=== PATIENT | female | born 1965 | race Caucasian/White ===

== ENCOUNTER 2019-10-10 08:39 | Outpatient (RCR) | payer MEDICARE, OTHER, SELFPAY | END 2019-10-23 00:01 | LOC: SPT 08:39 | PROVIDERS: Family Provider Electrodiagnostic Medicine; Visit Provider Licensed Practical Nurse | DX: M50.020 Cervical disc disorder with myelopathy, mid-cervical region, unspecified level (principal) | CPT/HCPCS: 97110; 97161; 97140 ==

== ENCOUNTER 2019-10-29 06:00 | Outpatient (RCR) | payer MEDICARE, OTHER, SELFPAY | END 2019-11-23 23:59 | disposition home or self-care (01) | LOC: SPT 06:00 | PROVIDERS: Family Provider Electrodiagnostic Medicine; PCP Electrodiagnostic Medicine; Referring Provider Orthopaedic Surgery; Visit Provider Orthopaedic Surgery | DX: M25.551 Pain in right hip (principal); M25.552 Pain in left hip | CPT/HCPCS: 97110; 97112; 97140; 97161; 97530 ==

== ENCOUNTER → 2019-11-12 09:49 | Outpatient (BNVA) | payer MEDICARE, OTHER, SELFPAY | PROVIDERS: Family Provider Electrodiagnostic Medicine; PCP Electrodiagnostic Medicine; Visit Provider Podiatrist Foot & Ankle Surgery | DX: S92.332A Displaced fracture of third metatarsal bone, left foot, initial encounter for closed fracture (principal); S92.322A Displaced fracture of second metatarsal bone, left foot, initial encounter for closed fracture; X58.XXXA Exposure to other specified factors, initial encounter | CPT/HCPCS: 73630 ==

== ENCOUNTER → 2019-11-14 12:21 | Outpatient (BNVA) | payer MEDICARE, OTHER, SELFPAY | PROVIDERS: Family Provider Electrodiagnostic Medicine; PCP Electrodiagnostic Medicine; Referring Provider Licensed Practical Nurse; Visit Provider Psychiatry & Neurology Neurology | DX: M54.2 Cervicalgia | CPT/HCPCS: 95886; 95908 ==

== ENCOUNTER 2019-11-24 06:00 | Outpatient (RCR) | payer MEDICARE, OTHER, SELFPAY | END 2019-12-22 23:59 | disposition home or self-care (01) | LOC: SPT 06:00 | PROVIDERS: Family Provider Electrodiagnostic Medicine; PCP Electrodiagnostic Medicine; Referring Provider Orthopaedic Surgery; Visit Provider Orthopaedic Surgery | DX: Z01.89 Encounter for other specified special examinations (principal) ==

== ENCOUNTER 2019-12-13 08:31 | Outpatient (CLI) | payer MEDICARE, OTHER, SELFPAY ==
[2019-12-13 08:51] VITALS: BMI 26.2
--- NOTE | 2019-12-13 08:55 | NMCV_ITS ---
NM jakob perf SPECT r/s* [id number] [address] Age: 54 Gender: F : 1965 Exam Date: 12/13/2019 09:39 Ordering Phys: Paul Mike DO Technologist: NINA Rouse Exam Location: [facility] Indications: Chest pain STRESS TEST [facility] for [facility] IMAGE PROTOCOL Rest/Stress 1 Lexiscan Day Radiopharmaceutical Dose (mCi) Administration Site Administered by Rest: Tc-99m 10.6 IV NINA Rouse Sestamibi Stress:Tc-99m 32.9 IV NINA Rouse Sestamibi Rest: 13-Dec-2019 60 Discovery 630 Stress: 13-Dec-2019 45 Discovery 630 0.4mg Lexiscan. Images obtained in supine and prone position. SPECT RESULTS Technical Quality: Good Raw Data Analysis: Breast attenuation Image Corrections: No attenuation or motion correction applied Summed Stress Score: 0 Summed Rest Score: 0 Summed Difference Score: 0 PERFUSION FINDINGS SPECT images demonstrate homogeneous tracer distribution throughout the myocardium. FUNCTIONAL RESULTS (calculated via Gated SPECT) Stress Image LV EF (%): 74 Stress EDV (mL):58 TID: 0.79 Stress ESV (mL):15 FUNCTIONAL FINDINGS: The left ventricle is normal in size. Transient Ischemia Dilatation of 0.79. There is normal left ventricular systolic function. The left ventricular ejection fraction is normal with a value of 74%. There is normal left ventricular wall thickening. IMPRESSIONS 1. Myocardial perfusion imaging is normal. Breast attenuation artifact noted. 2. Overall left ventricular systolic function is normal without regional wall motion abnormalities. 3. The left ventricular ejection fraction is normal with a value of 74%. 4. This study suggests a low likelihood of angiographically significant coronary artery disease. Negar Figueredo MD (Electronically Signed) Final Date: 13 December 2019 14:51 S
--- NOTE | 2019-12-13 08:55 | ECG_ITS ---
NAME OF STUDY: LEXISCAN SESTAMIBI STRESS TEST INDICATION: Chest Pain LEXISCAN STRESS TEST ORDERING PHYSICIAN: Rashid CLINICAL INFORMATION: Chest pain INTERPRETATION: 1. The patient was brought to the laboratory where Lexiscan was infused over 20 seconds. The resting blood pressure was 172/103. Maximum blood pressure was 172/103. The resting heart rate was 86 beats per minute. The maximum heart rate is 101 beats per minute. 2. The baseline electrocardiogram reveals sinus rhythm and is a normal tracing. One premature ventricular contraction. 3. With Lexiscan infusion, there were no ST segment changes to suggest ischemia. 4. The patient experienced no symptoms or arrhythmias during the examination. CONCLUSION: 1. Unremarkable Lexiscan infusion. 2. Nuclear imaging to follow. Electronically Signed On 12-13-2019 11:30:47 RETREADER by Sterling Alejo M.D. [email or web address]
--- NOTE | 2019-12-13 10:43 | SUR.PREOP ---
Patient reports no pain or discomfort prior to the start of the procedure.
[2019-12-13] MEDS: regadenoson 0.4 Mg/5 ml Syringe IVP (10:44)
[2019-12-13 11:09] VITALS: BP 168/95; PULSE 68
== END 2019-12-13 08:32 | disposition home or self-care (01) ==
PROVIDERS: Family Provider Electrodiagnostic Medicine; PCP Electrodiagnostic Medicine; Visit Provider Electrodiagnostic Medicine
DX: R07.9 Chest pain, unspecified (principal)
CPT/HCPCS: 78452; 93017; A9500; J2785

== ENCOUNTER 2020-01-08 20:21 | Emergency (ER) | payer MEDICARE, OTHER, SELFPAY ==
[2020-01-08] VITALS (7 sets, daily range): BP systolic 134–162; BP diastolic 83–102; PULSE 70–86; RESP 13–19; TEMP 36.8; O2SAT 93–97; BMI 21.6
[2020-01-08] MEDS: sodium chloride 0.9% 1,000 ML 999 ML IV (20:39)
--- NOTE | 2020-01-08 20:40 | ED_ITS ---
HPI - Nausea/Vomiting/Diarrhea General: Chief complaint: Nausea/Vomiting/Diarrhea Stated complaint: Vomiting x3 days Time Seen by Provider: 01/08/20 20:33 History of Present Illness: HPI Narrative: 54-year-old female presents emergency room with complaint of nausea and vomiting some diarrhea as well denies hematochezia melena times or coffee-ground emesis started several days ago today has had some chest pain started about 2 hours prior to arrival some shortness of breath chest pain radiated into the jaw. No productive cough MD elicited complaint: nausea, vomiting, diarrhea and abdominal pain Pertinent past history: abdominal surgery Onset (ago): day(s) Associated nausea: Yes Associated abdominal pain: Yes Location of pain: Diffuse Radiation: diffuse Pain consistency: intermittent Severity: moderate Quality: cramping Exacerbating factors: none Relieving factors: none Associated symtoms: Reports nausea; Denies chest pain, dysuria, fatigue or malaise Review of Systems Const: Denies: fever, chills, body aches, change in appetite, fatigue or malaise ENMT: Denies: throat pain, ear pain, nasal discharge or nasal congestion Card: Denies: chest pain, edema, shortness of breath on exertion or shortness of breath when lying down Resp: Denies: shortness of breath, productive cough or non-productive cough GI: Reports: nausea : Denies: flank pain, difficulty urinating, painful urination, urinary frequency or urinary urgency Skin/Breast: Denies: rash or itching PFS ED PFSH: Medical History (Updated 01/09/20 @ 00:06 by Alec Herman DO) Cervical disc disorder with myelopathy of mid-cervical region Surgical History (Updated 12/23/19 @ 11:50 by Daphne Cardenas APRN) History of lumbar spinal fusion (~2017) Dr. Elvin Leija, anterior L5-S1 fusion/fixation. Hx of gastric bypass Hx of hysterectomy Social History Smoking and tobacco status: current every day smoker cigarettes Alcohol intake: never Household members: spouse Marital status: Current occupational status: disabled History of recent travel: No Physical Exam Const: COMMON NORMALS: average body habitus, oriented x3 and alert GENERAL APPEARANCE: cooperative, comfortable, well kempt and well developed NUTRITIONAL APPEARANCE: obese ORIENTATION/CONSCIOUSNESS: Yes awake, Yes oriented to person and Yes oriented to place HENMT: COMMON NORMALS: normocephalic, head/scalp atraumatic, EAC's normal, TM's normal bilaterally, external nose normal, moist oral mucous membranes and oropharynx normal HEAD & SCALP: normocephalic and atraumatic NOSE: external nose normal EXTERNAL AUDITORY CANAL: EAC's normal TYMPANIC MEMBRANE: TM's normal bilaterally MOUTH: oral and palatal mucosa normal, lip normal and tongue normal THROAT: posterior oropharynx normal and tonsils normal Eye: COMMON NORMALS: PERRL, EOMs intact bilaterally, conjunctivae normal and no scleral icterus CONJUNCTIVA: Yes conjunctivae normal PUPIL: Yes PERRL Neck/C-Spine: COMMON NORMALS: full ROM, no lymphadenopathy, supple, no meningeal signs and thyroid normal THYROID: thyroid normal and asymmetrical Lymph: LYMPHATIC: no lymphadenopathy noted Resp: COMMON NORMALS: normal respiratory effort, no retractions, no use of accessory muscles and clear to auscultation bilaterally AUSCULTATION: clear to auscultation bilaterally Cardio: COMMON NORMALS: regular rate and regular rhythm RATE: regular rate RHYTHM: regular rhythm HEART SOUNDS: no murmurs GI: COMMON NORMALS: normal to inspection, nondistended, normoactive bowel sounds, soft to palpation and no hepatosplenomegaly PALPATION: Yes soft, Yes tender (Diffuse) and Yes no hepatosplenomegaly : COMMON NORMALS: Yes no CVA tenderness BLADDER/KIDNEY EXAM: Yes no CVA tenderness Back/Pelvis: COMMON NORMALS: no CVA tenderness LUMBAR SPINE/LOWER BACK: Yes normal to inspection Extremity: COMMON NORMALS: no clubbing, cyanosis or edema, no calf tenderness and no pedal edema Neuro: COMMON NORMALS: oriented x3 SENSORIUM/ORIENTATION: Yes alert, Yes oriented to person and Yes oriented to place MENINGEAL SIGNS: Yes no meningeal signs Psych: APPEARANCE: Yes well kempt Skin: COMMON NORMALS: no rashes or lesions noted and skin turgor normal GENERAL SKIN EXAM: no rashes or lesions noted and turgor normal Course ED course: Patient is feeling better after fluids. She was hypokalemic when she got her with oral potassium supplement she is above 3. Her nausea is improved we will go ahead and discharge her home with Zofran I was unable to get the computer program to write a prescription for potassium supplements for hand wrote a prescription for 20 mEq take 1 p.o. daily for the next 3 to 5 days advised her to follow-up with her primary care doctor within that timeframe to have her potassium rechecked. If it worsening or other problems return to the emergency room. Vital Signs: Vital signs: Vital Signs Temperature 98.4 F 01/09/20 00:17 Pulse Rate 73 01/09/20 00:17 Respiratory Rate 16 01/09/20 00:17 Blood Pressure 158/98 01/09/20 00:17 Pulse Oximetry 96 01/09/20 00:17 MDM - Nausea/Vomiting/Diarrhea Lab Data: Attestation: I reviewed the patient's lab results. Labs: Lab Results 01/08/20 01/08/20 01/08/20 Range/Units 20:00 20:00 22:07 WBC 5.8 (4.0-10.0) 10^3/ uL RBC 4.27 (4.1-5.3) 10^6/u L Hgb 12.5 (11.5-15.3) g/dL Hct 39.1 (37.0-47.0) % MCV 91.6 (81-99) fL MCH 29.3 (28.0-34.0) pg MCHC 32.0 (30.0-36.0) g/dL RDW 13.0 (12.1-15.1) % Plt Count 391 (130-400) 10^3/c mm MPV 10.5 H (7.4-10.4) fL Neut % (Auto) 54.1 % Lymph % (Auto) 34.6 % [place] % (Auto) 9.5 % Eos % (Auto) 1.2 % Baso % (Auto) 0.3 % Neut # (Auto) 3.1 (1.8-7.7) 10^3/u L Lymph # (Auto) 2.0 (0.8-4.8) 10^3/u L [place] # (Auto) 0.6 (0.2-0.9) 10^3/u L Eos # (Auto) 0.1 (0.0-0.8) 10^3/u L Baso # (Auto) 0.0 (0.0-0.1) 10^3/u L Nucleated RBC % (a uto) 0 % Nucleated RBCs # 0.0 /100WBC Sodium 137 139 (136-145) mmol/L Potassium 2.9 L 3.1 L (3.5-5.1) mmol/L Chloride 95 L 101 (98-107) mmol/L Carbon Dioxide 27 25 (22-29) mmol/L Anion Gap 17.9 16.1 (5-19) BUN 21 H 19 (6-20) mg/dL Creatinine 0.9 0.8 (0.5-0.9) mg/dL GFR Calculation 64.8 L 74.2 L (90-130) mL/min Glucose 119 H 107 (65-115) mg/dL Calculated Osmolal ity 282 L 285 (285-295) mOsm/k g Calcium 9.7 8.8 (8.5-10.5) mg/dL Total Bilirubin 0.4 (0.15-1.2) mg/dL AST 32 (0-32) U/L ALT 19 (0-33) U/L Alkaline Phosphata se 78 (35-105) IU/L Total Protein 7.7 (6.6-8.7) g/dL Albumin 4.7 (3.5-5.2) g/dL Globulin 3.0 (1.3-4.6) g/dL Imaging Data^: CT Abd/Pel: Radiologist's impression: [place] [address] CT Scan Report Signed Patient: Sj Land #: [id number] : 1965Acct#:[id number] Age/Sex: 54 / FADM Date: 01/08/20 Loc: ERRoom/Bed: Attending Dr: Ordering Provider/Ordering MD: Alec Herman DO Date of Service: 01/08/20 Procedure(s): CT abdomen pelvis w con* [id number] Accession Number(s): [id number] Report Number: [id number] PROCEDURE INFORMATION: Exam: CT Abdomen And Pelvis With Contrast Exam date and time: 01/08/2020 10:43 PM Age: 54 years old Clinical indication: Nausea and vomiting and other: Diarrhea; Abdominal pain; Generalized; Prior surgery; Surgery type: Back, gastric bypass, gb; Additional info: Abd pain TECHNIQUE: Imaging protocol: Computed tomography of the abdomen and pelvis with intravenous contrast. Total DLP: 1114.15 mGy-cm Radiation optimization: All CT scans at this facility use at least one of these dose optimization techniques: automated exposure control; mA and/or kV adjustment per patient size (includes targeted exams where dose is matched to clinical indication); or iterative reconstruction. Contrast material: OMNI 300; Contrast volume: 95 ml; Contrast route: IV; COMPARISON: CR No relevant prior studies available. FINDINGS: Lungs: The lung bases are clear. Liver: Unremarkable. Gallbladder and bile ducts: No definite gallbladder abnormality by CT. No biliary tree dilation. Pancreas: Unremarkable. Spleen: Unremarkable. Adrenals: Unremarkable. Kidneys and ureters: Unremarkable. Stomach and bowel: Evidence for prior gastric bypass surgery. Some swirling of the mesenteric vessels which may be postsurgical in nature. No significantly dilated bowel to suggest the obstruction or mesenteric volvulus at this time. Clinical correlation and close appropriate clinical follow-up recommended if there is continued concern for bowel obstruction. There are no CT findings to strongly suggest diverticulitis or colitis. Negative CT does not entirely exclude colitis, so follow-up may be helpful, as clinically directed. Appendix: The appendix is visualized and appears normal. Intraperitoneal space: No free air, ascites, or significant bowel distention. Vasculature: No evidence for abdominal aortic aneurysm. Lymph nodes: No retroperitoneal adenopathy. Bladder: Unremarkable as visualized. Reproductive: Prior hysterectomy. No definite ovarian/adnexal cyst or mass by CT. Bones/joints: Postsurgical changes of fusion at L5-S1. Soft tissues: No significant acute finding. CT/CT abdomen pelvis w con* [id number] IMPRESSION: 1. No free air or significant bowel distention. 2. Normal appendix. 3. Prior gastric bypass surgery. Some swirling of the mesenteric vessels which may be postsurgical in nature. No significantly dilated bowel to suggest the obstruction or mesenteric volvulus at this time. See above discussion. 4. Other findings discussed above. Radiation Dose CTDIVOL = (mGy): DLP = 1114.15 (mGy-cm) Dictated By:Elias Finley MD Discharge Plan Discharge Patient Disposition: Home, Self-Care Clinical Impression: Gastroenteritis, Hypokalemia Condition: Stable Prescriptions: New Zofran 4 mg tablet 4 mg PO Q6H PRN (Reason: nausea and vomiting) Qty: 20 RF: 0 No Action alendronate 70 mg tablet 70 mg PO ONCE RF: 0 citalopram [Celexa] 40 mg tablet 40 mg PO QDAY RF: 0 pregabalin [Lyrica] 150 mg capsule 150 mg PO BID RF: 0 tramadol 50 mg tablet 50 mg PO Q6H PRNRF: 0 tizanidine 2 mg capsule 2 mg PO TID PRNRF: 0 oxycodone-acetaminophen [Percocet] 5-325 mg tablet 1 tab PO QID PRNRF: 0 lidocaine [Lidoderm] 5 % adhesive patch,medicated 1 patch TOPICAL QDAY RF: 0 lisinopril 10 mg tablet 10 mg PO QDAY RF: 0 metoprolol succinate 50 mg tablet extended release 24 hr 50 mg PO BID RF: 0 sertraline 100 mg tablet 100 mg PO DAILY RF: 0 Discharge Orders: Discharge Order (Routine); Ordered 01/09/20 Ordered By: Alec Herman Referrals: Paul Mike DO [Primary Care Provider] - Discharge Diet: Advance as tolerated and Clear Liquid Discharge Activity: Increase activity as tolerated Activity Restrictions/Additional Instructions: Up with your primary care doctor in 2 to 3 days. Handwritten prescription was given for potassium 20 mEq take 1 daily until you follow-up with your primary care doctor Discharge Date/Time: 01/09/20 00:19 Coding Level of Care Code ED Psychological Operations for Fazal Fwd Exam Comprehensive
[2020-01-08] MEDS: ondansetron 2 mg/ML SDV 2 mL 4 MG IVP (20:51)
[2020-01-08 20:53] LABS: Basophils % 0.3 %; Eosinophils # 0.1 10^3/uL (0.0-0.8); Eosinophils % 1.2 %; Hematocrit 39.1 % (37.0-47.0); Hemoglobin 12.5 g/dL (11.5-15.3); Lymphocytes % 34.6 %; Mean Corpuscular Hemoglobin 29.3 pg (28.0-34.0); Mean Corpuscular Volume 91.6 fL (81-99); Mean Platelet Volume 10.5 fL (7.4-10.4); Monocytes # 0.6 10^3/uL (0.2-0.9); Monocytes % 9.5 %; Neutrophils # 3.1 10^3/uL (1.8-7.7); Neutrophils % 54.1 %; Nucleated Red Blood Cells % 0 %; Platelet Count 391 10^3/cmm (130-400); Red Blood Count 4.27 10^6/uL (4.1-5.3); White Blood Count 5.8 10^3/uL (4.0-10.0)
[2020-01-08 21:04] LABS: Alanine Aminotransferase 19 U/L (0-33); Albumin Level 4.7 g/dL (3.5-5.2); Alkaline Phosphatase 78 IU/L (35-105); Anion Gap 17.9 (5-19); Aspartate Amino Transferase 32 U/L (0-32); Blood Urea Nitrogen 21 mg/dL (6-20); Calcium 9.7 mg/dL (8.5-10.5); Carbon Dioxide 27 mmol/L (22-29); Chloride 95 mmol/L (98-107); Glomerular Filtration Rate 64.8 mL/min (90-130); Glucose 119 mg/dL (65-115); Osmolality Calculated 282 mOsm/kg (285-295); Sodium 137 mmol/L (136-145); Total Bilirubin 0.4 mg/dL (0.15-1.2); Total Protein 7.7 g/dL (6.6-8.7)
[2020-01-08 21:12] LABS: Potassium 2.9 mmol/L (3.5-5.1)
--- NOTE | 2020-01-08 21:57 | CTR_ITS ---
PROCEDURE INFORMATION: Exam: CT Abdomen And Pelvis With Contrast Exam date and time: 01/08/2020 10:43 PM Age: 54 years old Clinical indication: Nausea and vomiting and other: Diarrhea; Abdominal pain; Generalized; Prior surgery; Surgery type: Back, gastric bypass, gb; Additional info: Abd pain TECHNIQUE: Imaging protocol: Computed tomography of the abdomen and pelvis with intravenous contrast. Total DLP: 1114.15 mGy-cm Radiation optimization: All CT scans at this facility use at least one of these dose optimization techniques: automated exposure control; mA and/or kV adjustment per patient size (includes targeted exams where dose is matched to clinical indication); or iterative reconstruction. Contrast material: OMNI 300; Contrast volume: 95 ml; Contrast route: IV; COMPARISON: CR No relevant prior studies available. FINDINGS: Lungs: The lung bases are clear. Liver: Unremarkable. Gallbladder and bile ducts: No definite gallbladder abnormality by CT. No biliary tree dilation. Pancreas: Unremarkable. Spleen: Unremarkable. Adrenals: Unremarkable. Kidneys and ureters: Unremarkable. Stomach and bowel: Evidence for prior gastric bypass surgery. Some swirling of the mesenteric vessels which may be postsurgical in nature. No significantly dilated bowel to suggest the obstruction or mesenteric volvulus at this time. Clinical correlation and close appropriate clinical follow-up recommended if there is continued concern for bowel obstruction. There are no CT findings to strongly suggest diverticulitis or colitis. Negative CT does not entirely exclude colitis, so follow-up may be helpful, as clinically directed. Appendix: The appendix is visualized and appears normal. Intraperitoneal space: No free air, ascites, or significant bowel distention. Vasculature: No evidence for abdominal aortic aneurysm. Lymph nodes: No retroperitoneal adenopathy. Bladder: Unremarkable as visualized. Reproductive: Prior hysterectomy. No definite ovarian/adnexal cyst or mass by CT. Bones/joints: Postsurgical changes of fusion at L5-S1. Soft tissues: No significant acute finding. CT/CT abdomen pelvis w con* [id number] IMPRESSION: 1. No free air or significant bowel distention. 2. Normal appendix. 3. Prior gastric bypass surgery. Some swirling of the mesenteric vessels which may be postsurgical in nature. No significantly dilated bowel to suggest the obstruction or mesenteric volvulus at this time. See above discussion. 4. Other findings discussed above. Radiation Dose CTDIVOL = (mGy): DLP = 1114.15 (mGy-cm)
[2020-01-08] MEDS: sodium chlor 0.9% + KCl 20 mEq 20 MEQ/1,000 ML BAG 125 MEQ IV (22:19)
[2020-01-08 22:27] LABS: Anion Gap 16.1 (5-19); Blood Urea Nitrogen 19 mg/dL (6-20); Calcium 8.8 mg/dL (8.5-10.5); Carbon Dioxide 25 mmol/L (22-29); Chloride 101 mmol/L (98-107); Glomerular Filtration Rate 74.2 mL/min (90-130); Glucose 107 mg/dL (65-115); Osmolality Calculated 285 mOsm/kg (285-295); Potassium 3.1 mmol/L (3.5-5.1); Sodium 139 mmol/L (136-145)
[2020-01-08] MEDS: iohexol 300 mg/mL 100 mL Btl IV (22:53)
[2020-01-08] MEDS: acetaminophen 325 mg Tablet 650 MG PO (23:43)
[2020-01-09 00:17] VITALS: BP 158/98; PULSE 73; RESP 16; TEMP 36.9; O2SAT 96
== END 2020-01-09 00:19 | disposition home or self-care (01) ==
PROVIDERS: Emergency Provider Family Medicine; Family Provider Electrodiagnostic Medicine; PCP Electrodiagnostic Medicine
DX: K52.9 Noninfective gastroenteritis and colitis, unspecified (principal); E87.6 Hypokalemia; F17.210 Nicotine dependence, cigarettes, uncomplicated
CPT/HCPCS: 12345; 36415; 74177; 80048; 80053; 85025; 96365; 96366; 96375; 99283; 99284; J2405; J7030; Q9967

== ENCOUNTER 2020-01-17 15:27 | Emergency (ER) | payer MEDICARE, OTHER, SELFPAY ==
[2020-01-17] VITALS (8 sets, daily range): BP systolic 147–176; BP diastolic 99–122; PULSE 88–100; RESP 16–18; TEMP 36.4; O2SAT 94–98; BMI 31.6
--- NOTE | 2020-01-17 15:39 | ED_ITS ---
Entered by Randi Butler, acting as scribe for Alec Herman DO HPI - Headache General: Chief Complaint: Headache Stated Complaint: h/a Time Seen by Provider: 01/17/20 15:38 Source: patient Mode of arrival: ambulatory Limitations: no limitations History of Present Illness: HPI Narrative: 54 yo female presents with a headache. pt states this started today. pt states the lights and noise makes this worse and nothing makes it better.pt has had abdomen tenderness. pt denies any other symptoms at this time. MD elicited complaint: headache Onset (ago): day(s) Onset description: gradually Severity: mild Quality & Timing: throbbing Exacerbating factors: light Context: occurred at rest Associated symptoms: Reports other (abdomen tenderness) Treatments prior to arrival: none Review of Systems General: Reports: 10 or more systems reviewed and unremarkable except in HPI and below Eyes: Reports: photophobia Skin/Breast: Reports: sensitivity to light Neuro: Reports: headache PFSH ED PFSH: Medical History (Updated 01/17/20 @ 17:26 by Alec Herman DO) Cervical disc disorder with myelopathy of mid-cervical region Surgical History (Updated 12/23/19 @ 11:50 by Daphne Cardenas APRN) History of lumbar spinal fusion (~2016) Dr. Elvin Leija, anterior L5-S1 fusion/fixation. Hx of gastric bypass Hx of hysterectomy Social History Smoking and tobacco status: current every day smoker cigarettes Alcohol intake: never Household members: spouse Marital status: Current occupational status: disabled History of recent travel: No Physical Exam Const: COMMON NORMALS: no apparent distress GENERAL APPEARANCE: cooperative and comfortable ORIENTATION/CONSCIOUSNESS: Yes awake, Yes oriented to person, Yes oriented to place and Yes oriented to time HENMT: COMMON NORMALS: normocephalic, head/scalp atraumatic, hearing grossly normal bilaterally, external ears normal, EAC's normal, TM's normal bilaterally, nasal mucous membranes and turbinates normal, moist oral mucous membranes and oropharynx normal HEAD & SCALP: normocephalic and atraumatic NOSE: nasal mucous membranes and turbinates normal EXTERNAL EAR: Yes external ears normal EXTERNAL AUDITORY CANAL: EAC's normal TYMPANIC MEMBRANE: TM's normal bilaterally Neck/C-Spine: COMMON NORMALS: full ROM, no lymphadenopathy, supple and no JVD Lymph: LYMPHATIC: no lymphadenopathy noted and no lymphedema noted Resp: COMMON NORMALS: normal respiratory effort, no retractions, no use of accessory muscles and clear to auscultation bilaterally AUSCULTATION: clear to auscultation bilaterally Cardio: COMMON NORMALS: no JVD, regular rate, regular rhythm and no murmurs RATE: regular rate RHYTHM: regular rhythm GI: COMMON NORMALS: soft to palpation and no hepatosplenomegaly AUSC ULTATION: Yes normoactive bowel sounds PALPATION: Yes soft, No guarding and Y es no hepatosplenomegaly Extremity: COMMON NORMALS: normal to inspection, normal capillary refill, no clubbing, cyanosis or edema, no calf tenderness and no pedal edema Neuro: SENSORIUM/ORIENTATION: Yes oriented to person, Yes oriented to place and Yes oriented to time Skin: COMMON NORMALS: no rashes or lesions noted GENERAL SKIN EXAM: no rashes or lesions noted Course Vital Signs: Vital signs: Vital Signs Temperature 97.6 F 01/17/20 15:40 Pulse Rate 88 01/17/20 17:35 Respiratory Rate 16 01/17/20 17:35 Blood Pressure 156/115 01/17/20 17:35 Pulse Oximetry 96 01/17/20 17:35 MDM - Headache MDM Narrative: Medical decision making narrative: Patient improved after medications will discharge to home recommend follow-up with Dr. Mike as planned for imaging of the neck. Lab Data: Labs: Lab Results 01/17/20 01/17/20 Range/Units 15:57 15:57 WBC 5.1 (4.0-10.0) 10^3/ uL RBC 4.06 L (4.1-5.3) 10^6/u L Hgb 11.8 (11.5-15.3) g/dL Hct 38.9 (37.0-47.0) % MCV 95.8 (81-99) fL MCH 29.1 (28.0-34.0) pg MCHC 30.3 (30.0-36.0) g/dL RDW 13.0 (12.1-15.1) % Plt Count 319 (130-400) 10^3/c mm MPV 10.1 (7.4-10.4) fL Neut % (Auto) 56.0 % Lymph % (Auto) 32.2 % [place] % (Auto) 7.1 % Eos % (Auto) 3.9 % Baso % (Auto) 0.6 % Neut # (Auto) 2.9 (1.8-7.7) 10^3/u L Lymph # (Auto) 1.6 (0.8-4.8) 10^3/u L [place] # (Auto) 0.4 (0.2-0.9) 10^3/u L Eos # (Auto) 0.2 (0.0-0.8) 10^3/u L Baso # (Auto) 0.0 (0.0-0.1) 10^3/u L Nucleated RBC % (a uto) 0 % Nucleated RBCs # 0.0 /100WBC Sodium 144 (136-145) mmol/L Potassium 3.6 (3.5-5.1) mmol/L Chloride 104 (98-107) mmol/L Carbon Dioxide 25 (22-29) mmol/L Anion Gap 18.6 (5-19) BUN 4 L (6-20) mg/dL Creatinine 0.9 (0.5-0.9) mg/dL GFR Calculation 64.8 L (90-130) mL/min Glucose 145 H (65-115) mg/dL Calculated Osmolal ity 296 H (285-295) mOsm/k g Calcium 9.4 (8.5-10.5) mg/dL Total Bilirubin 0.2 (0.15-1.2) mg/dL AST 23 (0-32) U/L ALT 14 (0-33) U/L Alkaline Phosphata se 74 (35-105) IU/L Total Protein 6.7 (6.6-8.7) g/dL Albumin 4.5 (3.5-5.2) g/dL Globulin 2.2 (1.3-4.6) g/dL Discharge Plan Discharge Patient Disposition: Home, Self-Care Clinical Impression: Migraine, Cervical disc disorder with myelopathy of mid-cervical region Condition: Stable Prescriptions: No Action alendronate 70 mg tablet See Rx Instructions .ROUTE .COMPLEX RF: 0 pregabalin [Lyrica] 150 mg capsule 150 mg PO BID RF: 0 tramadol 50 mg tablet 50 mg PO Q6H PRN (Reason: PAIN) RF: 0 tizanidine 2 mg capsule 2 mg PO TID PRN (Reason: Muscle Pain) RF: 0 oxycodone-acetaminophen [Percocet] 5-325 mg tablet 1 tab PO QID PRN (Reason: Pain) RF: 0 lidocaine [Lidoderm] 5 % adhesive patch,medicated 1 patch TOPICAL QDAY RF: 0 lisinopril 10 mg tablet 10 mg PO DAILY RF: 0 metoprolol succinate 50 mg tablet extended release 24 hr 50 mg PO BID RF: 0 sertraline 100 mg tablet 100 mg PO DAILY RF: 0 ondansetron HCl [Zofran] 4 mg tablet 4 mg PO Q6H PRN (Reason: nausea and vomiting) Qty: 20 RF: 0 Klonopin 0.5 mg Tablet 0.5 mg PO DAILY RF: 0 promethazine 25 mg Tablet 25 mg PO Q6H PRN (Reason: Nausea) RF: 0 mlsuroqvcn-nzlhcauybenii-ifqr 50-300-40 mg Capsule 1 cap PO Q4H PRN (Reason: Headache) RF: 0 potassium chloride 20 mEq Tablet Extended Release 20 meq PO DAILY RF: 0 Referrals: Paul Mike DO [Primary Care Provider] - Activity Restrictions/Additional Instructions: Follow-up with Dr. Mike and the scheduled test he has been planned for you. Discharge Date/Time: 01/17/20 18:00 Coding Level of Care Code ED Legal Activity Adjudicator for Chg Fwd Exam Comprehensive The documentation recorded by the Luke delaney Bridget Annette, accurately reflects the service I personally performed and the decisions made by Batsheva connell Curtis L, DO Jan 17, 2020 15:27
--- NOTE | 2020-01-17 15:46 | CT_ITS ---
WS: [id number] CT HEAD NONCONTRAST HISTORY: headache TECHNIQUE: Contiguous axial imaging performed through the brain in 2.5 mm imaging. Bone and soft tiss ue windows. Sagittal and coronal reformats reviewed. All CT scans at [facility] use at ast one of these dose optimization techniques: automated exposure control; mA and/or kV adjustment pe r patient size (includes targeted exams where dose is matched to clinical indication); or iterative r econstruction. DLP: 754.28 mGy.cm COMPARISON: 10/05/2013 No acute intracranial hemorrhage, midline shift or mass effect. No atrophy or prior infarcts or herniation. No prior infarcts. Ventricles: Normal size with no hydrocephalus. Paranasal sinuses: As visualized are clear. Mastoid air cells: Well pneumatized. Calvarium and scalp: Skull is intact with no soft tissue edema or swelling. CT/CT head wo con* [id number] IMPRESSION: Negative head CT.
[2020-01-17 16:11] LABS: Basophils % 0.6 %; Eosinophils # 0.2 10^3/uL (0.0-0.8); Eosinophils % 3.9 %; Hematocrit 38.9 % (37.0-47.0); Hemoglobin 11.8 g/dL (11.5-15.3); Lymphocytes # 1.6 10^3/uL (0.8-4.8); Lymphocytes % 32.2 %; Mean Corpuscular HGB Conc 30.3 g/dL (30.0-36.0); Mean Corpuscular Hemoglobin 29.1 pg (28.0-34.0); Mean Corpuscular Volume 95.8 fL (81-99); Mean Platelet Volume 10.1 fL (7.4-10.4); Monocytes # 0.4 10^3/uL (0.2-0.9); Monocytes % 7.1 %; Neutrophils # 2.9 10^3/uL (1.8-7.7); Nucleated Red Blood Cells % 0 %; Platelet Count 319 10^3/cmm (130-400); Red Blood Count 4.06 10^6/uL (4.1-5.3); White Blood Count 5.1 10^3/uL (4.0-10.0)
[2020-01-17] MEDS: morphine 4 mg/mL SDV 1 mL IVP (16:21)
[2020-01-17] MEDS: ondansetron 2 mg/ML SDV 2 mL 4 MG IVP (16:21)
[2020-01-17 16:32] LABS: Alanine Aminotransferase 14 U/L (0-33); Albumin Level 4.5 g/dL (3.5-5.2); Alkaline Phosphatase 74 IU/L (35-105); Anion Gap 18.6 (5-19); Aspartate Amino Transferase 23 U/L (0-32); Blood Urea Nitrogen 4 mg/dL (6-20); Calcium 9.4 mg/dL (8.5-10.5); Carbon Dioxide 25 mmol/L (22-29); Chloride 104 mmol/L (98-107); Globulin 2.2 g/dL (1.3-4.6); Glomerular Filtration Rate 64.8 mL/min (90-130); Glucose 145 mg/dL (65-115); Osmolality Calculated 296 mOsm/kg (285-295); Potassium 3.6 mmol/L (3.5-5.1); Sodium 144 mmol/L (136-145); Total Bilirubin 0.2 mg/dL (0.15-1.2); Total Protein 6.7 g/dL (6.6-8.7)
[2020-01-17] MEDS: morphine 4 mg/mL SDV 1 mL 2 MG IVP (17:13)
== END 2020-01-17 18:00 | disposition home or self-care (01) ==
PROVIDERS: Emergency Provider Family Medicine; Family Provider Electrodiagnostic Medicine; PCP Electrodiagnostic Medicine
DX: G43.909 Migraine, unspecified, not intractable, without status migrainosus (principal); M50.020 Cervical disc disorder with myelopathy, mid-cervical region, unspecified level; F17.210 Nicotine dependence, cigarettes, uncomplicated
CPT/HCPCS: 12345; 36415; 70450; 80053; 85025; 96374; 96375; 96376; 99282; 99283; J2270; J2405

== ENCOUNTER 2020-01-22 10:45 | Emergency (ER) | payer MEDICARE, OTHER, SELFPAY ==
[2020-01-22] VITALS (9 sets, daily range): BP systolic 129–189; BP diastolic 75–145; PULSE 75–102; RESP 16–17; TEMP 36.8; O2SAT 96–100; BMI 27.8
--- NOTE | 2020-01-22 10:53 | XR_ITS ---
WS: [id number] PORTABLE CHEST HISTORY: chest pain COMPARISON: 11/07/2017, lung bases 01/08/2020 Subsegmental atelectasis at the LEFT lung base. No pulmonary nodule or mass. No pleural effusion or p neumothorax. Cardiac size: Normal. Mediastinum/Aorta: Mildly enlarged pulmonary arteries. No abnormality was noted at the hilar regions on the prior CT of 01/08/2020. No osseous abnormality seen. XR/XR chest 1V portable [id number] IMPRESSION: Subsegmental atelectasis LEFT lung base.
--- NOTE | 2020-01-22 10:53 | ECG_ITS ---
Measurements Intervals [place]ms Rate: 76 P: 50 MD: 127 QRS: 64 QRSD: 80 T: 66 QT: 359 QTc: 406 SINUS RHYTHM INTERPRETATION BASED ON A DEFAULT AGE OF 40 YEARS No previous ECG available for comparison Electronically Signed On 01-22-2020 19:24:03 CDT by Adryan Diallo M.D. [id number] f
--- NOTE | 2020-01-22 10:58 | W.ED.CHESTPA ---
HPI - Chest Pain General: Chief Complaint: Chest Pain Stated Complaint: CP Time Seen by Provider: 01/22/20 10:47 History of Present Illness: HPI narrative: Patient has chest pain that began last night. She describes the pain as sharp and stabbing. She has had no or minimal associated symptoms. MD complaint: chest pain and chest heaviness Onset (ago): day(s) (1) Timing of current episode: constant Prior episodes: No Onset: during rest Pain location: parasternal Pain radiation: none Quality: sharp Relieving factors: nothing Exacerbating factors: inspiration Review of Systems General: Reports: 10 or more systems reviewed and unremarkable except in HPI and below Card: Reports: chest pain PFS ED PFSH: Medical History Cervical disc disorder with myelopathy of mid-cervical region Surgical History History of lumbar spinal fusion (~2016) Dr. Elvin Leija, anterior L5-S1 fusion/fixation. Hx of gastric bypass Hx of hysterectomy Family History Father Cancer Family history of myocardial infarction Mother Lung disease Dementia Social History Smoking and tobacco status: current every day smoker cigarettes Alcohol intake: never Household members: spouse Marital status: Current occupational status: disabled History of recent travel: No Physical Exam HENMT: COMMON NORMALS: normocephalic HEAD & SCALP: normocephalic Neck/C-Spine: COMMON NORMALS: full ROM, no lymphadenopathy, no meningeal signs and no JVD GENERAL: No JVD Resp: COMMON NORMALS: normal respiratory effort, no retractions, no use of accessory muscles and clear to auscultation bilaterally AUSCULTATION: clear to auscultation bilaterally Cardio: COMMON NORMALS: no JVD, regular rate, regular rhythm and no murmurs RATE: regular rate RHYTHM: regular rhythm GI: COMMON NORMALS: normal to inspection, nondistended, normoactive bowel sounds Extremity: COMMON NORMALS: normal to inspection, full ROM, normal capillary refill and no pedal edema Neuro: MENINGEAL SIGNS: Yes no meningeal signs Skin: COMMON NORMALS: no rashes or lesions noted and skin turgor normal GENERAL SKIN EXAM: no rashes or lesions noted and turgor normal Course Vital Signs: Vital signs: Vital Signs Temperature 98.3 F 01/22/20 10:57 Pulse Rate 76 01/22/20 10:57 Respiratory Rate 16 01/22/20 13:26 Blood Pressure 189/145 01/22/20 10:57 Pulse Oximetry 100 01/22/20 10:57 MDM - Chest Pain Lab Data: Labs: Lab Results 01/22/20 01/22/20 01/22/20 Range/Units 11:02 11:02 11:02 WBC 3.5 L (4.0-10.0) 10^3/ uL RBC 4.25 (4.1-5.3) 10^6/u L Hgb 12.5 (11.5-15.3) g/dL Hct 40.6 (37.0-47.0) % MCV 95.5 (81-99) fL MCH 29.4 (28.0-34.0) pg MCHC 30.8 (30.0-36.0) g/dL RDW 13.2 (12.1-15.1) % Plt Count 309 (130-400) 10^3/c mm MPV 10.3 (7.4-10.4) fL Neut % (Auto) 54.0 % Lymph % (Auto) 32.9 % [place] % (Auto) 8.4 % Eos % (Auto) 3.8 % Baso % (Auto) 0.9 % Neut # (Auto) 1.9 (1.8-7.7) 10^3/u L Lymph # (Auto) 1.1 (0.8-4.8) 10^3/u L [place] # (Auto) 0.3 (0.2-0.9) 10^3/u L Eos # (Auto) 0.1 (0.0-0.8) 10^3/u L Baso # (Auto) 0.0 (0.0-0.1) 10^3/u L Nucleated RBC % (a uto) 0 % Nucleated RBCs # 0.0 /100WBC Sodium 145 (136-145) mmol/L Potassium 4.2 (3.5-5.1) mmol/L Chloride 104 (98-107) mmol/L Carbon Dioxide 26 (22-29) mmol/L Anion Gap 19.2 H (5-19) BUN 6 (6-20) mg/dL Creatinine 0.8 (0.5-0.9) mg/dL GFR Calculation 74.2 L (90-130) mL/min Glucose 108 (65-115) mg/dL Calculated Osmolal ity 296 H (285-295) mOsm/k g Calcium 9.9 (8.5-10.5) mg/dL Total Bilirubin 0.2 (0.15-1.2) mg/dL AST 29 (0-32) U/L ALT 16 (0-33) U/L Alkaline Phosphata se 81 (35-105) IU/L Troponin T Baselin e 10 (0-10) ng/mL Troponin T 120 Min romina (0-10) ng/mL Delta Troponin T (0-10) ABS# NT-Pro-B Natriuret Pep 48 (0-125) pg/mL Total Protein 7.8 (6.6-8.7) g/dL Albumin 4.6 (3.5-5.2) g/dL Globulin 3.2 (1.3-4.6) g/dL 01/22/20 Range/Units 13:02 WBC (4.0-10.0) 10^3/ uL RBC (4.1-5.3) 10^6/u L Hgb (11.5-15.3) g/dL Hct (37.0-47.0) % MCV (81-99) fL MCH (28.0-34.0) pg MCHC (30.0-36.0) g/dL RDW (12.1-15.1) % Plt Count (130-400) 10^3/c mm MPV (7.4-10.4) fL Neut % (Auto) % Lymph % (Auto) % [place] % (Auto) % Eos % (Auto) % Baso % (Auto) % Neut # (Auto) (1.8-7.7) 10^3/u L Lymph # (Auto) (0.8-4.8) 10^3/u L [place] # (Auto) (0.2-0.9) 10^3/u L Eos # (Auto) (0.0-0.8) 10^3/u L Baso # (Auto) (0.0-0.1) 10^3/u L Nucleated RBC % (a uto) % Nucleated RBCs # /100WBC Sodium (136-145) mmol/L Potassium (3.5-5.1) mmol/L Chloride (98-107) mmol/L Carbon Dioxide (22-29) mmol/L Anion Gap (5-19) BUN (6-20) mg/dL Creatinine (0.5-0.9) mg/dL GFR Calculation (90-130) mL/min Glucose (65-115) mg/dL Calculated Osmolal ity (285-295) mOsm/k g Calcium (8.5-10.5) mg/dL Total Bilirubin (0.15-1.2) mg/dL AST (0-32) U/L ALT (0-33) U/L Alkaline Phosphata se (35-105) IU/L Troponin T Baselin e (0-10) ng/mL Troponin T 120 Min romina 10.24 H (0-10) ng/mL Delta Troponin T 0.24 (0-10) ABS# NT-Pro-B Natriuret Pep (0-125) pg/mL Total Protein (6.6-8.7) g/dL Albumin (3.5-5.2) g/dL Globulin (1.3-4.6) g/dL Discharge Plan Discharge Prescriptions: No Action alendronate 70 mg tablet See Rx Instructions .ROUTE .COMPLEX RF: 0 pregabalin [Lyrica] 150 mg capsule 150 mg PO BID RF: 0 tramadol 50 mg tablet 50 - 100 mg PO TID PRN (Reason: PAIN) RF: 0 tizanidine 2 mg capsule 2 - 4 mg PO TID PRN (Reason: Muscle Pain) RF: 0 lidocaine [Lidoderm] 5 % adhesive patch,medicated See Rx Instructions .ROUTE .COMPLEX RF: 0 sertraline 100 mg tablet 100 mg PO DAILY RF: 0 Multiple Vitamins Tablet 1 tab PO DAILY RF: 0 albuterol sulfate 2.5 mg /3 mL (0.083 %) Solution For Nebulization 2.5 mg INHALATION Q4H PRN (Reason: Shortness Of Breath) RF: 0 Mobic 7.5 mg Tablet 7.5 mg PO DAILY RF: 0 metoprolol tartrate 50 mg Tablet 50 mg PO BID RF: 0 oxycodone-acetaminophen 7.5-325 mg Tablet 1 tab PO QID PRN (Reason: Pain) RF: 0 Ventolin HFA 90 mcg/actuation Hfa Aerosol Inhaler 2 puff INHALATION Q4H PRN (Reason: Shortness Of Breath) RF: 0 clonazepam [Klonopin] 0.5 mg Tablet 0.5 mg PO DAILY RF: 0 promethazine 25 mg Tablet 25 mg PO Q6H PRN (Reason: Nausea) RF: 0 bztcrizebn-occvztaubvrkd-iozi 50-300-40 mg Capsule 1 - 2 cap PO Q4H PRN (Reason: Headache) RF: 0 potassium chloride 20 mEq Tablet Extended Release 20 meq PO DAILY RF: 0 Coding Level of Care Code ED 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
[2020-01-22 11:11] LABS: Basophils % 0.9 %; Eosinophils # 0.1 10^3/uL (0.0-0.8); Eosinophils % 3.8 %; Hematocrit 40.6 % (37.0-47.0); Hemoglobin 12.5 g/dL (11.5-15.3); Lymphocytes # 1.1 10^3/uL (0.8-4.8); Lymphocytes % 32.9 %; Mean Corpuscular HGB Conc 30.8 g/dL (30.0-36.0); Mean Corpuscular Hemoglobin 29.4 pg (28.0-34.0); Mean Corpuscular Volume 95.5 fL (81-99); Mean Platelet Volume 10.3 fL (7.4-10.4); Monocytes # 0.3 10^3/uL (0.2-0.9); Monocytes % 8.4 %; Neutrophils # 1.9 10^3/uL (1.8-7.7); Nucleated Red Blood Cells % 0 %; Platelet Count 309 10^3/cmm (130-400); Red Blood Count 4.25 10^6/uL (4.1-5.3); Red Cell Distribution Width 13.2 % (12.1-15.1); White Blood Count 3.5 10^3/uL (4.0-10.0)
[2020-01-22 11:31] LABS: Troponin(5th) Baseline 10 ng/mL (0-10)
[2020-01-22 11:42] LABS: Alanine Aminotransferase 16 U/L (0-33); Albumin Level 4.6 g/dL (3.5-5.2); Alkaline Phosphatase 81 IU/L (35-105); Anion Gap 19.2 (5-19); Aspartate Amino Transferase 29 U/L (0-32); Blood Urea Nitrogen 6 mg/dL (6-20); Calcium 9.9 mg/dL (8.5-10.5); Carbon Dioxide 26 mmol/L (22-29); Chloride 104 mmol/L (98-107); Globulin 3.2 g/dL (1.3-4.6); Glomerular Filtration Rate 74.2 mL/min (90-130); Glucose 108 mg/dL (65-115); NT Pro B Type Natriuretic Pept 48 pg/mL (0-125); Osmolality Calculated 296 mOsm/kg (285-295); Potassium 4.2 mmol/L (3.5-5.1); Sodium 145 mmol/L (136-145); Total Bilirubin 0.2 mg/dL (0.15-1.2); Total Protein 7.8 g/dL (6.6-8.7)
[2020-01-22] MEDS: hyDRALAzine 20 mg/mL INJ 1 mL IVP (12:26)
--- NOTE | 2020-01-22 12:53 | ECG_ITS ---
Measurements Intervals [place] Rate: 101 P: 67 MO: 127 QRS: 58 QRSD: 87 T: 68 QT: 334 QTc: 435 SINUS TACHYCARDIA ABNORMAL RHYTHM ECG No previous ECG available for comparison Electronically Signed On 01-22-2020 19:24:46 CDT by Adryan Diallo M.D. [email or web address] f
--- NOTE | 2020-01-22 13:12 | PC.NURSE ---
ekg performed and shown to ED physician.
[2020-01-22] MEDS: ondansetron 2 mg/ML SDV 2 mL 4 MG IVP (13:25)
[2020-01-22] MEDS: morphine 4 mg/mL SDV 1 mL IVP (13:26)
[2020-01-22 13:27] LABS: Troponin 5 2HR 10.24 ng/mL (0-10); Troponin 5 2HR Delta 0.24 ABS# (0-10)
[2020-01-22] MEDS: labetalol 5 mg/mL SDV 20mL 40 MG IVP (14:16)
== END 2020-01-22 15:16 | disposition home or self-care (01) ==
PROVIDERS: Emergency Provider Family Medicine; Family Provider Electrodiagnostic Medicine; PCP Electrodiagnostic Medicine
DX: I20.8 Other forms of angina pectoris (principal); I16.9 Hypertensive crisis, unspecified; F17.210 Nicotine dependence, cigarettes, uncomplicated; Z98.84 Bariatric surgery status
CPT/HCPCS: 12345; 36415; 71045; 80053; 83880; 84484; 85025; 93005; 96374; 96375; 99282; 99284; J0360; J2270; J2405; J3490

== ENCOUNTER 2020-01-23 08:38 | Outpatient (CLI) | payer MEDICARE, OTHER, SELFPAY ==
--- NOTE | 2020-01-23 08:46 | MR_ITS ---
WS: [id number] MRI LUMBAR SPINE NONCONTRAST TECHNIQUE: Sagittal T1, T2 and STIR imaging. Axial T1 and T2 imaging. CLINICAL INFORMATION: LUMBAR BACK PAIN W/RADICULOPATHY COMPARISON: MRI May 20, 2018 FINDINGS: Mild lumbar curve. No acute compression. Mild disc bulging L3-L4 and L4-L5. Postoperative changes ant erior interbody fusion L5-S1. Tarlov cysts in the sacrum. L1-L2: Normal. L2-L3: Tiny right subarticular protrusion narrows the right subarticular recess with contact of the t raversing L3 nerve root. Right foramen is patent. Mild facet arthropathy. This is new from 2018. L3-L4: Mild annular bulging with slight narrowing of the subarticular recess bilaterally. Mild facet arthropathy. Mild left and no significant right foraminal narrowing. L4-L5: Mild annular bulging with a shallow central disc protrusion. Narrowing of the subarticular rec ess bilaterally with mild central canal stenosis. Mild to moderate right and no significant left fora rose narrowing. Mild facet arthropathy. L5-S1: Postoperative changes anterior interbody fusion L5-S1. Spinal canal and foramen are patent. Mi ld/moderate facet arthropathy. Tarlov cysts in the sacrum. Visualized pelvic bony structures: Normal. Paravertebral soft tissues: Normal. MR/MR lumbar spine wo con* [id number] IMPRESSION: 1. Mild lumbar curve. No acute compression. Stable anterior interbody fusion L 5-S1. 2. New small right subarticular protrusion L2-3 with impingement on the mariya sing right L3 nerve root. Recommend correlation for L3 nerve root symptoms. 3. Mild central canal stenosis L4-5 due to annular bulging with a small centra l protrusion. Narrowing of the subarticular recess bilaterally. Mild to moderat e right L4-5 foraminal narrowing. 4. Mild left L3-4 foraminal narrowing.
== END 2020-01-23 08:39 | disposition home or self-care (01) ==
PROVIDERS: Family Provider Electrodiagnostic Medicine; PCP Electrodiagnostic Medicine; Visit Provider Electrodiagnostic Medicine
DX: M54.16 Radiculopathy, lumbar region (principal); M51.26 Other intervertebral disc displacement, lumbar region; M48.061 Spinal stenosis, lumbar region without neurogenic claudication
CPT/HCPCS: 72148

== ENCOUNTER 2020-01-29 07:58 | Outpatient (CLI) | payer MEDICARE, OTHER, SELFPAY ==
--- NOTE | 2020-01-29 | MR_ITS ---
WS: [id number] MRI HEAD WITHOUT CONTRAST TECHNIQUE: Sagittal T1, T2 axial, T2 axial FLAIR, axial and coronal T1 images, axial susceptibility w eighted imaging, axial diffusion weighted images, and coronal T2 images were obtained. CLINICAL INFORMATION: HEADACHE COMPARISON: None. FINDINGS: No evidence of restricted diffusion to suggest acute ischemia. Ventricular system and basal cisterns are patent. Mild small vessel changes with mild parenchymal volume loss. Normal posterior fossa. Norm al vascular flow voids at the skull base. No extra-axial fluid collections. Mild mucosal thickening in the ethmoid air cells. Mastoid air cells are well aerated. No hemosiderin on the susceptibly weighted images. Normal optic chiasm and pituitary infundibulum.Mild symmetric atr ophy involving the temporal lobes and temporal formations. MR/MR head wo con* [id number] IMPRESSION: 1. No evidence of restricted diffusion to suggest acute ischemia. 2. Mild small vessel changes with mild parenchymal volume loss. 3. No hemosiderin on susceptibly weighted images. 4. Mild symmetric atrophy involving the temporal lobes hippocampal formations. 5. No other significant findings.
--- NOTE | 2020-01-29 | MR_ITS ---
WS: [id number] MRI CERVICAL SPINE NONCONTRAST TECHNIQUE: Sagittal T1, T2 and STIR imaging. Axial T2, gradient, and fiesta imaging. CLINICAL INFORMATION: NECK PAIN COMPARISON: None. FINDINGS: Straightening of the normal cervical lordosis. Cord signal is normal. No high-grade central canal christiano nosis. Mild disc bulging C5-C6 and C6-C7. C2-C3: Normal. C3-C4: No significant disc bulging. Mild facet arthropathy. Spinal canal and foramen are patent. C4-C5: Mild disc bulging and osteophytic ridging. Mild left and no significant right foraminal narrow ing. Mild facet arthropathy. Spinal canal is patent. C5-C6: Mild disc bulging with osteophytic ridging. Disc osteophyte protrusion with moderate facet art hropathy. Mild left and no significant right foraminal narrowing. C6-C7: Disc osteophyte complex with a tiny central disc protrusion. Mild left greater than right fora rose narrowing. Moderate facet arthropathy. C7-T1: Disc osteophyte complex with endplate ridging. Mild left greater than right bony foraminal herrera rowing. Spinal canal is patent. Small disc protrusions in the upper thoracic spine T3-T4 and T4-T5. T4-5 disc protrusion slightly con tacts the thoracic cord A few small T2 hyperintense thyroid nodules. MR/MR cervical spin wo con* [id number] IMPRESSION: 1. Straightening of the normal cervical lordosis. 2. Cord signal is normal. No significant central canal stenosis. 3. Small central disc osteophyte protrusions C5-C6, C6-7, slightly contacts th e cervical cord without significant central canal stenosis. 4. Mild bony foraminal narrowing mainly due to osteophytic ridging and facet a rthropathy more prominent at left C4-C5, and left C6-C7. 5. Small disc protrusions in the upper thoracic spine at T3-T4 and T4-T5 with slight contact of the thoracic cord at T4-T5. 6. A few small thyroid nodules. This can be followed up with ultrasound.
== END 2020-01-29 07:59 | disposition home or self-care (01) ==
LOC: RADSHAW 07:58
PROVIDERS: Family Provider Electrodiagnostic Medicine; PCP Electrodiagnostic Medicine; Visit Provider Electrodiagnostic Medicine
DX: M48.02 Spinal stenosis, cervical region (principal); M47.892 Other spondylosis, cervical region; E04.2 Nontoxic multinodular goiter; M54.2 Cervicalgia; R51 Headache
CPT/HCPCS: 70551; 72141

== ENCOUNTER 2020-03-07 09:22 | Outpatient (CLI) | payer MEDICARE, OTHER, SELFPAY ==
--- NOTE | 2020-03-07 10:00 | IR_ITS ---
WS: [id number] MYELOGRAM CERVICAL SPINE Fluoroscopic guided cervical myelogram CLINICAL INFORMATION: cervical pain COMPARISON: None. TECHNIQUE: The procedure, including risks, benefits, and complications, were discussed with the patie nt who agreed to proceed. A timeout was performed to confirm correct patient, procedure, and site. Using sterile technique, the patient was prepped and draped in the usual sterile fashion. After admin istration of local anesthesia using 1% preservative-free lidocaine and using fluoroscopic guidance, a 22-gauge spinal needle was advanced into the subarachnoid space at the L3-L4 level. Subsequently 13 cc of Omnipaque 300 was administered into the thecal sac. The needle was removed and hemostasis was a chieved. Subsequently the table was tilted down and contrast flowed freely into the cervical spine. S pot fluoroscopic images were obtained. FLUOROSCOPIC TIME: 1.1 minutes. Spot fluoroscopic images demonstrate free flow of contrast into the cervical spine. Mild spinal lytic changes cervical spine. Normal C1-articulation. Disc space heights vertebral body heights are relati vely well-preserved in the cervical spine. Straightening of the normal cervical lordosis in the neutr al view. Slight anterolisthesis C4 on C5 measuring 1 to 2 mm. This increases slightly on flexion to 2 .2 mm. This returns to near neutral on extension. Moderate facet arthropathy mid cervical spine. Please see CT myelogram report for additional detail. IR/IR myelogram sp cervical [id number] IMPRESSION: 1. Uncomplicated cervical myelogram. 2. Mild flexion-extension instability C4-5 described above. 3. Please see CT myelogram report for additional anatomic detail.
[2020-03-07] MEDS: iohexol 300 mg/mL 50 mL Btl INTRATHECA (10:48)
--- NOTE | 2020-03-07 11:30 | CT_ITS ---
WS: [id number] CT CERVICAL MYELOGRAM TECHNIQUE: CT of the cervical spine coronal and sagittal reformatted images post intrathecal administ ration of contrast. CLINICAL INFORMATION: cervical pain COMPARISON: MRI January 29, 2020 DLP: 1421.[address] scans at [facility] use at least one of these dose optimization techniques: automat ed exposure control; mA and/or kV adjustment per patient size (includes targeted exams where dose is matched to clinical indication); or iterative reconstruction. FINDINGS: Straightening of the normal cervical lordosis. Slight anterolisthesis C4 on C5. This measures approxi mately 1.5 mm. Normal C1-2 articulation. No high-grade central canal stenosis. C2-C3: No significant disc bulging. Spinal canal and foramen are patent. C3-C4: Mild osteophytic ridging. Mild left and no significant right foraminal narrowing. Spinal canal is patent. Mild facet arthropathy. C4-C5: Slight anterolisthesis C4 on C5. Mild left and no significant right foraminal narrowing. Spina l canal is patent. Mild facet arthropathy. C5-C6: Mild disc osteophyte complex. No significant central canal stenosis. Mild facet arthropathy. S tracy canal and foramen are patent. C6-C7: Mild disc osteophyte complex with endplate ridging. Mild bilateral bony foraminal narrowing. M ild to moderate facet arthropathy. Central canal is patent. Tiny central disc osteophyte protrusion s lightly contacts the cervical cord. C7-T1: Mild disc osteophytic ridging. Mild left greater than right bony foraminal narrowing. Spinal c anal is patent. Mastoid air cells are well aerated. Multinodular thyroid. This could be followed up with ultrasound. Largest thyroid nodules in the right measuring 1.4CCM. Visualized posterior fossa structures: Normal. CT/CT cervical spine w con [id number] IMPRESSION: 1. Straightening of the normal cervical lordosis with slight anterolisthesis C 4 on C5. 2. No high-grade central canal narrowing. 3. Small disc osteophyte protrusions at C5-C6 and C6-C7 with slight contact of the cervical cord worse at C6-C7. No significant central canal stenosis. 4. Multilevel mild bony foraminal narrowing worse at left greater than right C 6-C7 and bilateral C7-T1. 5. Multinodular thyroid with the largest nodules measuring up to 1.5 cm in the right thyroid gland. This can be followed up with ultrasound.
== END 2020-03-07 09:23 | disposition home or self-care (01) ==
PROVIDERS: Family Provider Electrodiagnostic Medicine; PCP Electrodiagnostic Medicine; Visit Provider Specialist
DX: M25.78 Osteophyte, vertebrae (principal); M48.02 Spinal stenosis, cervical region; E04.2 Nontoxic multinodular goiter; M53.2X2 Spinal instabilities, cervical region
CPT/HCPCS: 62302; 72040; 72126; J2001

== ENCOUNTER 2020-04-25 08:51 | Outpatient (CLI) | payer MEDICARE, OTHER, SELFPAY ==
--- NOTE | 2020-04-25 08:57 | US_ITS ---
WS: [id number] ULTRASOUND THYROID TECHNIQUE: Ultrasound of the thyroid. CLINICAL INFORMATION: THYROID NODULE COMPARISON: None. FINDINGS: Thyroid: Right lobe larger than left. Multiple bilateral heterogeneous thyroid nodules. Largest nodul e right lower lobe measuring 1.7 x 1.2 x 1.7 cm Right thyroid lobe: 4.9 cm x 1.7 cm x 2.0 cm Left thyroid lobe: 4.4 cm x 1.1 cm x 1.7 cm. Isthmus: 0.3 mm. Cervical lymphadenopathy: None. US/US thyroid [id number] IMPRESSION: 1. Heterogeneous right thyroid nodule measuring 1.7 x 1.2 x 1.7 cm. This can b e further evaluated with FNA. 2. Largest nodule in the left thyroid measuring 1.3 x 0.7 CM. Recommend 12 mon th follow-up.
== END 2020-04-25 08:52 | disposition home or self-care (01) ==
LOC: RAD 08:55
PROVIDERS: Family Provider Electrodiagnostic Medicine; PCP Electrodiagnostic Medicine; Visit Provider Electrodiagnostic Medicine
DX: E04.2 Nontoxic multinodular goiter (principal)
CPT/HCPCS: 76536

== ENCOUNTER → 2020-04-28 15:00 | Outpatient (BNVA) | payer MEDICARE, OTHER, SELFPAY | PROVIDERS: Family Provider Electrodiagnostic Medicine; PCP Electrodiagnostic Medicine; Visit Provider Nurse Practitioner | DX: R50.9 Fever, unspecified (principal) | CPT/HCPCS: 87635 ==

== ENCOUNTER 2020-05-12 12:26 | Outpatient (CLI) | payer MEDICARE, OTHER, SELFPAY ==
--- NOTE | 2020-05-12 12:00 | XRR_ITS ---
PROCEDURE INFORMATION: Exam: XR Left Foot Complete Exam date and time: 05/12/2020 12:43 PM Age: 54 years old Clinical indication: Injury or trauma; Fall; Initial encounter; Blunt trauma; Foot; Left; Injury date: ? Patient HX: PT fell; Additional info: Metatarsal fracture TECHNIQUE: Imaging protocol: XR Left foot. Views: 3 or more views. COMPARISON: CR XR foot LT min 3V* [id number] 11/12/2019 9:54 AM FINDINGS: Bones/joints: Unremarkable Soft tissues: Normal. Other findings: Comparison to prior examination similar findings is seen XR/XR foot LT min 3V* [id number] IMPRESSION: No acute findings.
== END 2020-05-12 12:27 | disposition home or self-care (01) ==
PROVIDERS: Family Provider Electrodiagnostic Medicine; PCP Electrodiagnostic Medicine; Visit Provider Podiatrist Foot & Ankle Surgery
DX: S99.922A Unspecified injury of left foot, initial encounter (principal); X58.XXXA Exposure to other specified factors, initial encounter
CPT/HCPCS: 73630

== ENCOUNTER 2020-05-28 14:45 | Outpatient (CLI) | payer MEDICARE, OTHER, SELFPAY ==
--- NOTE | 2020-05-28 14:51 | XRR_ITS ---
PROCEDURE INFORMATION: Exam: XR Chest, 2 Views Exam date and time: 05/28/2020 3:21 PM Age: 54 years old Clinical indication: Condition or disease; Lung condition and disease; Pneumonia; Other: Not specified TECHNIQUE: Imaging protocol: XR of the chest Views: 2 views. COMPARISON: CR XR chest 1V portable [id number] 01/22/2020 11:23 AM FINDINGS: Lungs: Unremarkable. No consolidation. Pleural space: Unremarkable. No pleural effusion. No pneumothorax. Heart/Mediastinum: Unremarkable. No cardiomegaly. Bones/joints: Unremarkable. XR/XR chest 2V* [id number] IMPRESSION: No acute findings.
== END 2020-05-28 14:46 | disposition home or self-care (01) ==
LOC: RAD 14:48
PROVIDERS: PCP Electrodiagnostic Medicine; Visit Provider Nurse Practitioner Family
DX: J18.9 Pneumonia, unspecified organism (principal)
CPT/HCPCS: 71046

== ENCOUNTER 2020-06-27 15:00 | Outpatient (CLI) | payer MEDICARE, OTHER, SELFPAY ==
--- NOTE | 2020-06-27 15:05 | XR_ITS ---
WS: [id number] Lateral views of cervical spine in the flexion, extension and neutral positions. 06/27/2020 Clinical Data: SPINAL STENOSIS Comparison: None. Findings: The disc heights are normal. There is no prevertebral soft tissue swelling. No compression fractures are noted. On flexion and extension there is no limitation of motion or subluxation. The patient is e dentulous. XR/XR cervical spine fl/ex [id number] Impression: Negative lateral view of the cervical spine with no limitation of motion or sub luxation on flexion or extension.
--- NOTE | 2020-06-27 15:41 | MRR_ITS ---
PROCEDURE INFORMATION: Exam: MR Cervical Spine Without Contrast Exam date and time: 06/27/2020 3:41 PM Age: 54 years old Clinical indication: Condition or disease; Other: Spinal stenosis; Additional info: Spinal stenosis, cervical region TECHNIQUE: Imaging protocol: Multiplanar magnetic resonance images of the cervical spine without contrast. COMPARISON: MR cervical spin wo con* [id number] 01/29/2020 8:38 AM FINDINGS: Vertebrae: Vertebrae are intact and normally aligned. There is normal marrow signal without evidence of fracture or replacement lesion. Spinal cord: Cervical cord has a normal diameter in appearance on all sequences. C2-C3: No significant disc disease. No significant spinal stenosis. C3-C4: No significant disc disease. No significant spinal stenosis. C4-C5: Mild posterior osteophyte without significant stenosis or impingement. C5-C6: There is mild posterior bulging of the disc with effacement of the anterior epidural space not changed from 01/29/2020 C6-C7: There is mild posterior protrusion of the disc, slightly more prominent than on the previous examination with effacement of the anterior epidural space but without significant cord flattening, more prominent towards the left and to the right. There is no foraminal stenosis. C7-T1: No significant disc disease. No significant spinal stenosis. Vertebral arteries: Expected flow voids in the vertebral arteries. Soft tissues: Unremarkable. MR/MR cervical spin wo con* [id number] IMPRESSION: Mild degenerative disc changes in the lower cervical spine as described with some mild protrusion at C6-C7 which has progressed slightly compared with 01/29/2020.
== END 2020-06-27 15:01 | disposition home or self-care (01) ==
LOC: RAD 15:03
PROVIDERS: PCP Electrodiagnostic Medicine; Visit Provider Anesthesiology Pain Medicine
DX: M48.02 Spinal stenosis, cervical region (principal)
CPT/HCPCS: 72040; 72141

== ENCOUNTER → 2020-07-01 11:24 | Outpatient (BNVA) | payer MEDICARE, OTHER, SELFPAY | PROVIDERS: PCP Electrodiagnostic Medicine; Visit Provider Nurse Practitioner Family | DX: Z11.59 Encounter for screening for other viral diseases (principal) | CPT/HCPCS: 87635 ==

== ENCOUNTER 2020-08-05 07:58 | Outpatient (CLI) | payer MEDICARE, OTHER, SELFPAY ==
--- NOTE | 2020-08-05 08:00 | CT_ITS ---
WS: [id number] CT ABDOMEN PELVIS TECHNIQUE: Contrast-enhanced CT of the abdomen and pelvis with coronal and sagittal reformatted image s. CLINICAL INFORMATION: DIARRHEA, ABD PAIN, ANEMIA, GASTRITIS COMPARISON: CT January 08, 2020 DLP: 1139.[address] scans at [facility] use at least one of these dose optimization techniques: automat ed exposure control; mA and/or kV adjustment per patient size (includes targeted exams where dose is matched to clinical indication); or iterative reconstruction. FINDINGS: Mild diffuse infiltration liver. Portal vein and splenic vein are patent. Fatty sparing near the falc iform ligament. Subsegmental atelectasis right lower lobe. Normal GE junction. Adrenal glands are nor mal. Normal renal parenchymal enhancement. No hydronephrosis. Normal spleen. Normal pancreas. Prior p ostoperative changes gastric bypass surgery. Rectosigmoid distention with mild constipation. Again seen is swirling in the central mesentery simil ar to the prior examination. No evidence of high-grade obstruction. Findings likely postoperative in etiology. Diffuse transmural colonic thickening involving the cecum and ascending colon extending into the brenner sverse colon to the splenic flexure. Findings suspicious for infectious or inflammatory colitis. Desc ending colon appears normal. No pneumatosis. No free air. Prior postoperative changes anterior interb malik fusion L5-S1. Tiny fat-containing umbilical hernia. Prior hysterectomy. CT/CT abdomen pelvis w con* [id number] IMPRESSION: 1. Prior postoperative changes gastric bypass surgery. 2. Diffuse transmural thickening involving the cecum and ascending colon exten ding into the transverse colon to the splenic flexure. Findings compatible with colitis which may be infectious or inflammatory in etiology. Less likely ische kiley. No free air or pneumatosis. Recommend correlation for infectious symptoms. 3. Again seen is prominent swirling in the central mesentery which is likely p ostsurgical and unchanged. No bowel obstruction. 4. Diffuse fatty infiltration of the liver with cholecystectomy. 5. Rectosigmoid constipation.
[2020-08-05] MEDS: iohexol 300 mg/mL 50 mL Btl PO (08:46)
[2020-08-05] MEDS: iohexol 300 mg/mL 100 mL Btl IV (10:36)
== END 2020-08-05 07:59 | disposition home or self-care (01) ==
PROVIDERS: PCP Electrodiagnostic Medicine; Visit Provider Electrodiagnostic Medicine
DX: R19.7 Diarrhea, unspecified (principal); R10.9 Unspecified abdominal pain; D64.9 Anemia, unspecified; K29.70 Gastritis, unspecified, without bleeding; Z98.84 Bariatric surgery status; K59.09 Other constipation; K76.0 Fatty (change of) liver, not elsewhere classified
CPT/HCPCS: 74177; Q9967

== ENCOUNTER 2020-08-06 23:00 | Inpatient (IN) | payer MEDICARE, OTHER, SELFPAY ==
[2020-08-06 23:12] VITALS: BP 82/58; PULSE 71; RESP 17; TEMP 36.4; O2SAT 95; BMI 26.6
--- NOTE | 2020-08-06 23:19 | W.ED.ABDPA2 ---
HPI - Abdominal Pain General: Chief Complaint: Abdominal Pain Stated Complaint: ABD PAIN Time Seen by Provider: 08/06/20 23:12 History of Present Illness: Associated Symptoms: Denies chills, constipation, diarrhea, dysuria, fever(s), hematochezia, hematuria, nausea and vomiting Review of Systems Const: Denies: fever(s), chills or fatigue Eyes: Denies: change in vision or eye discomfort ENMT: Denies: throat pain, odynophagia, nasal discharge or nasal congestion Card: Denies: chest pain, palpitations, edema, swelling of feet/ankles, dyspnea on exertion or orthopnea Resp: Denies: dyspnea, productive cough or non-productive cough GI: Denies: abdominal pain, nausea, vomiting, diarrhea, constipation or hematochezia : Denies: flank pain, dysuria or hematuria Musc: Denies: neck pain, back pain or extremity swelling Skin/Breast: Denies: rash or new lesions Neuro: Denies: headache(s), numbness in extremities or weakness in extremities PFSH ED PFSH: Medical History Cervical disc disorder with myelopathy of mid-cervical region HTN (hypertension) HZV (herpes zoster virus) post herpetic neuralgia Smoker Surgical History History of lumbar spinal fusion (~2017) Dr. Elvin Leija, anterior L5-S1 fusion/fixation. Hx of gastric bypass Hx of hysterectomy Family History Father Cancer Family history of myocardial infarction Mother Lung disease Dementia Social History Smoking and tobacco status: current every day smoker cigarettes Alcohol intake: never Household members: spouse Marital status: Current occupational status: disabled History of recent travel: No Physical Exam Const: COMMON NORMALS: patient oriented x3 HENMT: COMMON NORMALS: normocephalic HEAD & SCALP: normocephalic MOUTH: Normal oral and palatal mucosa present THROAT: posterior oropharynx normal and uvula midline Neck/C-Spine: COMMON NORMALS: supple GENERAL: Yes normal visual inspection Resp: COMMON NORMALS: normal respiratory effort, No retractions, No use of accessory muscles and clear to auscultation bilaterally AUSCULTATION: clear to auscultation bilaterally Cardio: COMMON NORMALS: regular rate, regular rhythm, S1 normal heart sound present, S2 normal heart sound present, No gallops present (Cardio), No clicks present (Cardio), No murmurs present (Cardio) and Peripheral pulses 2+ throughout RATE: regular rate RHYTHM: regular rhythm HEART SOUNDS: S1 normal heart sound present and S2 normal heart sound present PERIPHERAL PULSES: Peripheral pulses 2+ throughout GI: COMMON NORMALS: Normal to inspection, nondistended, normoactive bowel sounds present, Soft to palpation, non-tender and no masses PALPATION: Yes Soft to palpation : COMMON NORMALS: Yes no CVA tenderness BLADDER/KIDNEY EXAM: Yes no CVA tenderness Back/Pelvis: COMMON NORMALS: no CVA tenderness Neuro: COMMON NORMALS: patient oriented x3 GAIT: Yes Normal gait present Course Vital Signs: Vital signs: Vital Signs Temperature 97.5 F L 08/06/20 23:12 Pulse Rate 71 08/06/20 23:12 Respiratory Rate 17 08/06/20 23:12 Blood Pressure 82/58 08/06/20 23:12 Pulse Oximetry 95 08/06/20 23:12 Discharge Plan Discharge Prescriptions: No Action alendronate 70 mg tablet See Rx Instructions .ROUTE .COMPLEX RF: 0 pregabalin [Lyrica] 150 mg capsule 150 mg PO BID RF: 0 tramadol 50 mg tablet 50 - 100 mg PO TID PRN (Reason: PAIN) RF: 0 tizanidine 2 mg capsule 2 - 4 mg PO TID PRN (Reason: Muscle Pain) RF: 0 lidocaine [Lidoderm] 5 % adhesive patch,medicated See Rx Instructions .ROUTE .COMPLEX RF: 0 (DME) [employer] See Rx Instructions .Route .MEDSUPPLY Qty: 1 RF: 0 sertraline 100 mg tablet 100 mg PO DAILY RF: 0 (DME) Mezzo ankle brace See Rx Instructions .Route .MEDSUPPLY Qty: 1 RF: 0 Multiple Vitamins Tablet 1 tab PO DAILY RF: 0 albuterol sulfate 2.5 mg /3 mL (0.083 %) Solution For Nebulization 2.5 mg INHALATION Q4H PRN (Reason: Shortness Of Breath) RF: 0 Mobic 7.5 mg Tablet 7.5 mg PO DAILY RF: 0 metoprolol tartrate 50 mg Tablet 50 mg PO BID RF: 0 oxycodone-acetaminophen 7.5-325 mg Tablet 1 tab PO QID PRN (Reason: Pain) RF: 0 Ventolin HFA 90 mcg/actuation Hfa Aerosol Inhaler 2 puff INHALATION Q4H PRN (Reason: Shortness Of Breath) RF: 0 Fioricet 50-300-40 mg capsule 1 cap PO Q4H PRN (Reason: headache) Qty: 20 RF: 0 clonazepam [Klonopin] 0.5 mg Tablet 0.5 mg PO DAILY RF: 0 promethazine 25 mg Tablet 25 mg PO Q6H PRN (Reason: Nausea) RF: 0 hyotgsxatc-noayynuocetln-stil 50-300-40 mg Capsule 1 - 2 cap PO Q4H PRN (Reason: Headache) RF: 0 potassium chloride 20 mEq Tablet Extended Release 20 meq PO DAILY RF: 0 Coding Level of Care Code ED Asset Protection Officer for Suhag Lucila
--- NOTE | 2020-08-06 23:26 | XR_ITS ---
WS: [id number] Portable AP upright chest, 08/06/2020 Clinical Data: sob Comparison: PA and lateral chest, 05/28/2020. Findings: No nodules, masses or effusions are seen. The heart is normal. The pulmonary vascularity is not increased. No pneumonia or pneumothorax is seen. Monitor leads are on the chest wall. XR/XR chest 1V portable [id number] Impression: Negative chest.
--- NOTE | 2020-08-06 23:27 | ECG_ITS ---
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 Measurements Intervals [place] Rate: 66 P: 47 VA: 120 QRS: 46 QRSD: 152 T: 36 QT: 393 QTc: 414 Interpretive Statements SINUS RHYTHM INTRAVENTRICULAR CONDUCTION DELAY [130+ ms QRS DURATION] Compared to ECG 01/22/2020 13:00:49 Intraventricular conduction delay now present Sinus tachycardia no longer present Electronically Signed On 08-07-2020 9:34:00 CDT by Bruno Meraz M.D. [email or web address] Organizationmer[id number] f
--- NOTE | 2020-08-06 23:30 | CTR_ITS ---
PROCEDURE INFORMATION: Exam: CT Abdomen And Pelvis With Contrast Exam date and time: 08/06/2020 11:35 PM Age: 54 years old Clinical indication: Abdominal pain; Generalized; Prior surgery; Surgery type: Gb, hystectomy, bladder, gastric bypass; Additional info: Abd pain TECHNIQUE: Imaging protocol: Computed tomography of the abdomen and pelvis with intravenous contrast. Radiation optimization: All CT scans at this facility use at least one of these dose optimization techniques: automated exposure control; mA and/or kV adjustment per patient size (includes targeted exams where dose is matched to clinical indication); or iterative reconstruction. Contrast material: OMNI 300; Contrast volume: 95 ml; Contrast route: INTRAVENOUS (IV); COMPARISON: 1. CT abdomen pelvis w con* [id number] 08/05/2020 10:[address] abdomen pelvis w con* [id number] 01/08/2020 10:51:00 PM RADIATION DOSE METRICS: Total DLP (mGy-cm): 1031.21 FINDINGS: Lungs: There is some mild dependent atelectasis at the lung bases. There is some mild peripheral ground-glass opacity posteriorly in both lower lobes which is not fully evaluated on this examination. Pulmonary viral infection is not excluded. Liver: There is focal hypodensity in the left lobe of the liver adjacent to the falciform ligament consistent with focal fatty change Gallbladder and bile ducts: Normal. No calcified stones. No ductal dilation. Pancreas: The pancreas is normal. Spleen: The spleen is normal. Adrenals: The adrenal glands are normal. Kidneys and ureters: The kidneys are normal. There is no evidence of hydronephrosis. Stomach and bowel: There is a radial configuration of dilated small bowel loops within the pelvis. 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 There is also some swirling in the left mid abdomen in a separate location in the small bowel anastomosis appears slightly further to the left the previous examination. 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 Surgical consultation is suggested. Ascending and transverse colon are distended with feces on the present examination the findings of colonic wall thickening is improved compared with 08/05/2020. Appendix: A normal appendix is identified. Intraperitoneal space: There is no evidence of free intraperitoneal fluid. Vasculature: Sternotomy wires and mediastinal surgical clips are present, consistent with previous coronary arterial bypass grafting. Lymph nodes: Unremarkable. No enlarged lymph nodes. Urinary bladder: Unremarkable as visualized. Reproductive: Unremarkable as visualized. Bones/joints: Postsurgical changes again identified in the lower lumbar spine. No acute fracture. Soft tissues: See Stomach and bowel finding. 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 COMMENTS: THIS REPORT CONTAINS FINDINGS THAT MAY BE CRITICAL TO PATIENT CARE. The findings were verbally communicated via telephone conference with francisco Florez at 1:30 AM CDT on 08/07/2020. The findings were acknowledged and understood. Radiation Dose CTDIVOL = (mGy): DLP = 1031.21 (mGy-cm)
[2020-08-06 23:39] LABS: Glucose Point of Care 263 mg/dL (70-110)
--- NOTE | 2020-08-06 23:39 | ED_ITS ---
HPI - Abdominal Pain General: Chief Complaint: Abdominal Pain Stated Complaint: ABD PAIN Time Seen by Provider: 08/06/20 23:12 Source: patient Mode of arrival: ambulatory Limitations: no limitations History of Present Illness: HPI narrative: Sj is a 54-year-old female states she is been having abdominal pain over the last 2 to 3 days along with diarrhea. Patient had a CT scan the day ago showed a possible colitis. States she started feeling weak tonight and was having worsening pain. Patient arrived she is quite hypotensive with blood pressure in the 50s. She denies any fever. Patient is slightly lethargic. She denies any blood in her stool. She denies any vomiting blood. MD elicited complaint: abdominal pain Associated Symptoms: Reports diarrhea; Denies chills, dysuria and fever(s) Review of Systems 2 Const: Denies: fever(s), chills, body aches or change in appetite Eyes: Denies: blurry vision or eye discomfort ENMT: Denies: throat pain or dental pain Card: Denies: chest pain Resp: Denies: dyspnea GI: Reports: abdominal pain and diarrhea : Denies: dysuria Musc: Denies: neck pain or back pain Skin/Breast: Denies: rash Neuro: Denies: headache(s) Psych: Denies: depression Miguel/Lymph: Denies: easy bruising All/Imm: Denies: urticaria PFSH ED PFSH: Medical History Cervical disc disorder with myelopathy of mid-cervical region HTN (hypertension) HZV (herpes zoster virus) post herpetic neuralgia Smoker Surgical History History of lumbar spinal fusion (~2016) Dr. Elvin Leija, anterior L5-S1 fusion/fixation. Hx of gastric bypass Hx of hysterectomy Family History Father Cancer Family history of myocardial infarction Mother Lung disease Dementia Social History Smoking and tobacco status: current every day smoker cigarettes Alcohol intake: never Household members: spouse Marital status: Current occupational status: disabled History of recent travel: No Physical Exam Const: COMMON NORMALS: patient oriented x3 GENERAL APPEARANCE: lethargic and ill appearing ORIENTATION/CONSCIOUSNESS: Yes lethargic HENMT: COMMON NORMALS: normocephalic and atraumatic HEAD & SCALP: normocephalic and atraumatic Eye: COMMON NORMALS: Equal, round and reactive pupils present and EOMs intact bilaterally PUPIL: Yes Equal, round and reactive pupils present Neck/C-Spine: COMMON NORMALS: full ROM and supple Chest: COMMONS NORMALS: normal inspection of the chest and normal palpation of entire chest wall Resp: COMMON NORMALS: normal respiratory effort, No retractions, No use of accessory muscles and clear to auscultation bilaterally AUSCULTATION: clear to auscultation bilaterally Cardio: COMMON NORMALS: regular rate, regular rhythm and No murmurs present (Cardio) RATE: regular rate RHYTHM: regular rhythm GI: COMMON NORMALS: Normal to inspection, nondistended, normoactive bowel sounds present, Soft to palpation and no masses PALPATION: Yes Soft to palpation OTHER: diffuse tenderness Extremity: COMMON NORMALS: normal to inspection and full ROM Neuro: COMMON NORMALS: patient oriented x3, moves all extremities and no focal motor deficits SENSORIUM/ORIENTATION: Yes lethargic Psych: COMMON NORMALS: mental status grossly normal, Normal thought process present and cooperative THOUGHT PROCESS: Normal thought process present Skin: COMMON NORMALS: no rashes or lesions noted and no wounds GENERAL SKIN EXAM: no rashes or lesions noted Course Vital Signs: Vital signs: Vital Signs Temperature 97.5 F L 08/06/20 23:12 Pulse Rate 77 08/07/20 04:18 Respiratory Rate 17 08/07/20 04:18 Blood Pressure 156/92 08/07/20 04:18 Pulse Oximetry 97 08/07/20 04:18 MDM - Abdominal Pain MDM Narrative: Medical decision making narrative: Patient presents here with abdominal pain and is quite hypotensive. Her blood pressure is greatly improved after IV fluids and Narcan. Believe her hypotension is likely medicine related. Did a rectal exam showed no blood in her stool. 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 I spoke to Dr. Ponce who is consulted. I also spoke to hospitalist who will admit. Patient has been stable here. Lab Data: Labs: Lab Results 08/06/20 08/06/20 08/06/20 Range/Units 23:35 23:42 23:42 WBC 3.7 L (4.0-10.0) 10^3/ uL RBC 3.27 L (4.1-5.3) 10^6/u L Hgb 8.8 L (11.5-15.3) g/dL Hct 30.2 L (37.0-47.0) % MCV 92.4 (81-99) fL MCH 26.9 L (28.0-34.0) pg MCHC 29.1 L (30.0-36.0) g/dL RDW 15.5 H (12.1-15.1) % Plt Count 279 (130-400) 10^3/c mm MPV 10.8 H (7.4-10.4) fL Neut % (Auto) 52.3 % Lymph % (Auto) 35.2 % [place] % (Auto) 9.8 % Eos % (Auto) 1.9 % Baso % (Auto) 0.5 % Neut # (Auto) 1.91 (1.8-7.7) 10^3/u L Lymph # (Auto) 1.3 (0.8-4.8) 10^3/u L [place] # (Auto) 0.4 (0.2-0.9) 10^3/u L Eos # (Auto) 0.1 (0.0-0.8) 10^3/u L Baso # (Auto) 0.0 (0.0-0.1) 10^3/u L Nucleated RBC % (a uto) 0 % Nucleated RBCs # 0.0 /100WBC PT (12.1-14.9) SECO NDS INR (0.8-1.2) Sodium 140 (136-145) mmol/L Potassium 4.5 (3.5-5.1) mmol/L Chloride 106 (98-107) mmol/L Carbon Dioxide 23 (22-29) mmol/L Anion Gap 15.5 (5-19) BUN 5 L (6-20) mg/dL Creatinine 0.7 (0.5-0.9) mg/dL GFR Calculation 86.6 L (90-130) mL/min Glucose 251 H (65-115) mg/dL POC Glucose 263 (70-110) mg/dL Calculated Osmolal ity 296 H (285-295) mOsm/k g Lactate (0.5-2.2) mmol/L Calcium 8.2 L (8.5-10.5) mg/dL Total Bilirubin 0.2 (0.15-1.2) mg/dL AST 23 (0-32) U/L ALT 16 (0-33) U/L Alkaline Phosphata se 79 (35-105) IU/L Troponin T Baselin e (0-10) ng/L Total Protein 5.4 L (6.6-8.7) g/dL Albumin 3.6 (3.5-5.2) g/dL Globulin 1.8 (1.3-4.6) g/dL Lipase 26 (13-60) U/L Urine Color (Yellow) Urine Appearance (CLEAR) Urine pH (5-7) Ur Specific Gravit y (1.005-1.030) Urine Protein (Negative) Urine Glucose (UA) (Normal) Urine Ketones (Negative) Urine Blood (Negative) Urine Nitrate (Negative) Urine Bilirubin (Negative) Urine Urobilinogen (Negative) mg/dL Ur Leukocyte Caitie ase (Negative) Urine RBC (0-2) /hpf Urine WBC (0-5) /hpf Ur Squamous Epith Cells (0-5) /hpf Calcium Oxalate Cr ystal /hpf Amorphous Sediment /hpf Urine Bacteria (NONE) /hpf Hyaline Casts /lpf Urine Mucus /hpf Urine Opiates Scre en (Negative) ng/mL Ur Barbiturates Sc reen (Negative) ng/mL Ur Phencyclidine S crn (Negative) ng/mL Ur Amphetamines Sc reen (Negative) ng/mL U Benzodiazepines Scrn (Negative) ng/mL Urine Cocaine Scre en (Negative) ng/mL U Marijuana (THC) Screen (Negative) ng/mL Ethyl Alcohol < 10 (0-10) mg/dL Blood Type Rho(D) Type 08/06/20 08/06/20 08/06/20 Range/Units 23:42 23:42 23:59 WBC (4.0-10.0) 10^3/ uL RBC (4.1-5.3) 10^6/u L Hgb (11.5-15.3) g/dL Hct (37.0-47.0) % MCV (81-99) fL MCH (28.0-34.0) pg MCHC (30.0-36.0) g/dL RDW (12.1-15.1) % Plt Count (130-400) 10^3/c mm MPV (7.4-10.4) fL Neut % (Auto) % Lymph % (Auto) % [place] % (Auto) % Eos % (Auto) % Baso % (Auto) % Neut # (Auto) (1.8-7.7) 10^3/u L Lymph # (Auto) (0.8-4.8) 10^3/u L [place] # (Auto) (0.2-0.9) 10^3/u L Eos # (Auto) (0.0-0.8) 10^3/u L Baso # (Auto) (0.0-0.1) 10^3/u L Nucleated RBC % (a uto) % Nucleated RBCs # /100WBC PT 13.90 (12.1-14.9) SECO NDS INR 1.04 (0.8-1.2) Sodium (136-145) mmol/L Potassium (3.5-5.1) mmol/L Chloride (98-107) mmol/L Carbon Dioxide (22-29) mmol/L Anion Gap (5-19) BUN (6-20) mg/dL Creatinine (0.5-0.9) mg/dL GFR Calculation (90-130) mL/min Glucose (65-115) mg/dL POC Glucose (70-110) mg/dL Calculated Osmolal ity (285-295) mOsm/k g Lactate 2.3 H (0.5-2.2) mmol/L Calcium (8.5-10.5) mg/dL Total Bilirubin (0.15-1.2) mg/dL AST (0-32) U/L ALT (0-33) U/L Alkaline Phosphata se (35-105) IU/L Troponin T Baselin e 8 (0-10) ng/L Total Protein (6.6-8.7) g/dL Albumin (3.5-5.2) g/dL Globulin (1.3-4.6) g/dL Lipase (13-60) U/L Urine Color (Yellow) Urine Appearance (CLEAR) Urine pH (5-7) Ur Specific Gravit y (1.005-1.030) Urine Protein (Negative) Urine Glucose (UA) (Normal) Urine Ketones (Negative) Urine Blood (Negative) Urine Nitrate (Negative) Urine Bilirubin (Negative) Urine Urobilinogen (Negative) mg/dL Ur Leukocyte Caitie ase (Negative) Urine RBC (0-2) /hpf Urine WBC (0-5) /hpf Ur Squamous Epith Cells (0-5) /hpf Calcium Oxalate Cr ystal /hpf Amorphous Sediment /hpf Urine Bacteria (NONE) /hpf Hyaline Casts /lpf Urine Mucus /hpf Urine Opiates Scre en (Negative) ng/mL Ur Barbiturates Sc reen (Negative) ng/mL Ur Phencyclidine S crn (Negative) ng/mL Ur Amphetamines Sc reen (Negative) ng/mL U Benzodiazepines Scrn (Negative) ng/mL Urine Cocaine Scre en (Negative) ng/mL U Marijuana (THC) Screen (Negative) ng/mL Ethyl Alcohol (0-10) mg/dL Blood Type Rho(D) Type 08/07/20 08/07/20 08/07/20 Range/Units 00:21 00:21 00:31 WBC (4.0-10.0) 10^3/ uL RBC (4.1-5.3) 10^6/u L Hgb (11.5-15.3) g/dL Hct (37.0-47.0) % MCV (81-99) fL MCH (28.0-34.0) pg MCHC (30.0-36.0) g/dL RDW (12.1-15.1) % Plt Count (130-400) 10^3/c mm MPV (7.4-10.4) fL Neut % (Auto) % Lymph % (Auto) % [place] % (Auto) % Eos % (Auto) % Baso % (Auto) % Neut # (Auto) (1.8-7.7) 10^3/u L Lymph # (Auto) (0.8-4.8) 10^3/u L [place] # (Auto) (0.2-0.9) 10^3/u L Eos # (Auto) (0.0-0.8) 10^3/u L Baso # (Auto) (0.0-0.1) 10^3/u L Nucleated RBC % (a uto) % Nucleated RBCs # /100WBC PT (12.1-14.9) SECO NDS INR (0.8-1.2) Sodium (136-145) mmol/L Potassium (3.5-5.1) mmol/L Chloride (98-107) mmol/L Carbon Dioxide (22-29) mmol/L Anion Gap (5-19) BUN (6-20) mg/dL Creatinine (0.5-0.9) mg/dL GFR Calculation (90-130) mL/min Glucose (65-115) mg/dL POC Glucose (70-110) mg/dL Calculated Osmolal ity (285-295) mOsm/k g Lactate (0.5-2.2) mmol/L Calcium (8.5-10.5) mg/dL Total Bilirubin (0.15-1.2) mg/dL AST (0-32) U/L ALT (0-33) U/L Alkaline Phosphata se (35-105) IU/L Troponin T Baselin e (0-10) ng/L Total Protein (6.6-8.7) g/dL Albumin (3.5-5.2) g/dL Globulin (1.3-4.6) g/dL Lipase (13-60) U/L Urine Color Yellow (Yellow) Urine Appearance Sl hazy (CLEAR) Urine pH 5 (5-7) Ur Specific Gravit y 1.020 (1.005-1.030) Urine Protein Trace (Negative) Urine Glucose (UA) Norm (Normal) Urine Ketones 1+ H (Negative) Urine Blood Neg (Negative) Urine Nitrate Negative (Negative) Urine Bilirubin Neg (Negative) Urine Urobilinogen 1 H (Negative) mg/dL Ur Leukocyte Caitie ase Negative (Negative) Urine RBC 0-4 H (0-2) /hpf Urine WBC 0-4 H (0-5) /hpf Ur Squamous Epith Cells 0-4 H (0-5) /hpf Calcium Oxalate Cr ystal 25-40 H /hpf Amorphous Sediment 1+ /hpf Urine Bacteria Trace (NONE) /hpf Hyaline Casts >100 H /lpf Urine Mucus 1+ /hpf Urine Opiates Scre en Positive H (Negative) ng/mL Ur Barbiturates Sc reen Positive H (Negative) ng/mL Ur Phencyclidine S crn Negative (Negative) ng/mL Ur Amphetamines Sc reen Negative (Negative) ng/mL U Benzodiazepines Scrn Positive H (Negative) ng/mL Urine Cocaine Scre en Negative (Negative) ng/mL U Marijuana (THC) Screen Negative (Negative) ng/mL Ethyl Alcohol (0-10) mg/dL Blood Type A Positive Rho(D) Type Positive Imaging Data ^: CXR: Attestation: I personally reviewed and interpreted this imaging study as follows: My impression: no acute abnormality CT Abd/Pel: Attestation: I personally reviewed and interpreted this imaging study as follows: Radiologist's impression: [address] [address] [address] Scan Report Signed Patient: Sj Land Unit #: [id number] : [id number] Age/Sex: 54 / F ADM Date: 08/06/20 Loc: ER Room/Bed: Attending Dr: Ordering Provider/Ordering MD: Gregorio Florez MD Date of Service: 08/06/20 Procedure(s): CT abdomen pelvis w con* [id number] Accession Number(s): [id number] Report Number: [id number] PROCEDURE INFORMATION: Exam: CT Abdomen And Pelvis With Contrast Exam date and time: 08/06/2020 11:35 PM Age: 54 years old Clinical indication: Abdominal pain; Generalized; Prior surgery; Surgery type: Gb, hystectomy, bladder, gastric bypass; Additional info: Abd pain TECHNIQUE: Imaging protocol: Computed tomography of the abdomen and pelvis with intravenous contrast. Radiation optimization: All CT scans at this facility use at least one of these dose optimization techniques: automated exposure control; mA and/or kV adjustment per patient size (includes targeted exams where dose is matched to clinical indication); or iterative reconstruction. Contrast material: OMNI 300; Contrast volume: 95 ml; Contrast route: INTRAVENOUS (IV); COMPARISON: 1. CT abdomen pelvis w con* [id number] 08/05/2020 10:[address] abdomen pelvis w con* [id number] 01/08/2020 10:51:00 PM RADIATION DOSE METRICS: Total DLP (mGy-cm): 1031.21 FINDINGS: Lungs: There is some mild dependent atelectasis at the lung bases. There is some mild peripheral ground-glass opacity posteriorly in both lower lobes which is not fully evaluated on this examination. Pulmonary viral infection is not excluded. Liver: There is focal hypodensity in the left lobe of the liver adjacent to the falciform ligament consistent with focal fatty change Gallbladder and bile ducts: Normal. No calcified stones. No ductal dilation. Pancreas: The pancreas is normal. Spleen: The spleen is normal. Adrenals: The adrenal glands are normal. Kidneys and ureters: The kidneys are normal. There is no evidence of hydronephrosis. Stomach and bowel: There is a radial configuration of dilated small bowel loops within the pelvis. 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 There is also some swirling in the left mid abdomen in a separate location in the small bowel anastomosis appears slightly further to the left the previous examination. 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 Surgical consultation is suggested. Ascending and transverse colon are distended with feces on the present examination the findings of colonic wall thickening is improved compared with 08/05/2020. Appendix: A normal appendix is identified. Intraperitoneal space: There is no evidence of free intraperitoneal fluid. Vasculature: Sternotomy wires and mediastinal surgical clips are present, consistent with previous coronary arterial bypass grafting. Lymph nodes: Unremarkable. No enlarged lymph nodes. Urinary bladder: Unremarkable as visualized. Reproductive: Unremarkable as visualized. Bones/joints: Postsurgical changes again identified in the lower lumbar spine. No acute fracture. Soft tissues: See Stomach and bowel finding. CT/CT abdomen pelvis w con* [id number] IMPRESSION: Findings are worrisome for internal hernia and midgut volvulus. COMMENTS: THIS REPORT CONTAINS FINDINGS THAT MAY BE CRITICAL TO PATIENT CARE. The findings were verbally communicated via telephone conference with gregorio Florez at 1:30 AM CDT on 08/07/2020. The findings were acknowledged and understood. EKG Data ^: EKG 1: Attestation: I personally reviewed and interpreted this EKG as follows: EKG interpretation date: 08/06/20 EKG interpretation time: 22:37 Interpretation: nsr hr [address] or t wave abnormalities qrs 152 qtc 407 Discharge Plan Discharge Patient Disposition: Admitted As Inpatient Admit Provider: Adryan Carlos Clinical Impression: Midgut volvulus Hypotension Qualifiers: Hypotension type: unspecified hypotension type Qualified Code(s): I95.9 - Hypotension, unspecified Condition: Stable Referrals: Paul Mike DO [Primary Care Provider] - Discharge Date/Time: 08/07/20 04:47 Coding Level of Care Code ED Recruitment Coordinator for Chg Fwd Exam Comprehensive
[2020-08-06 23:45] VITALS: BP 74/50; PULSE 67; RESP 16; O2SAT 98
[2020-08-06] MEDS: sodium chloride 0.9% 500 ML 999 ML IV (23:46)
[2020-08-06] MEDS: sodium chloride 0.9% 1,000 ML 999 ML IV (23:46)
[2020-08-06 23:48] LABS: Basophils % 0.5 %; Eosinophils # 0.1 10^3/uL (0.0-0.8); Eosinophils % 1.9 %; Hematocrit 30.2 % (37.0-47.0); Hemoglobin 8.8 g/dL (11.5-15.3); Lymphocytes # 1.3 10^3/uL (0.8-4.8); Lymphocytes % 35.2 %; Mean Corpuscular HGB Conc 29.1 g/dL (30.0-36.0); Mean Corpuscular Hemoglobin 26.9 pg (28.0-34.0); Mean Corpuscular Volume 92.4 fL (81-99); Mean Platelet Volume 10.8 fL (7.4-10.4); Monocytes # 0.4 10^3/uL (0.2-0.9); Monocytes % 9.8 %; Neutrophils # 1.91 10^3/uL (1.8-7.7); Neutrophils % 52.3 %; Nucleated Red Blood Cells % 0 %; Platelet Count 279 10^3/cmm (130-400); Red Blood Count 3.27 10^6/uL (4.1-5.3); Red Cell Distribution Width 15.5 % (12.1-15.1); White Blood Count 3.7 10^3/uL (4.0-10.0)
[2020-08-07] VITALS (18 sets, daily range): BP systolic 67–165; BP diastolic 41–99; PULSE 58–108; RESP 13–20; TEMP 36.7–37.2; O2SAT 93–99
[2020-08-07 00:06] LABS: INR 1.04 (0.8-1.2)
[2020-08-07 00:15] LABS: Alanine Aminotransferase 16 U/L (0-33); Albumin Level 3.6 g/dL (3.5-5.2); Alkaline Phosphatase 79 IU/L (35-105); Blood Urea Nitrogen 5 mg/dL (6-20); Calcium 8.2 mg/dL (8.5-10.5); Carbon Dioxide 23 mmol/L (22-29); Chloride 106 mmol/L (98-107); Globulin 1.8 g/dL (1.3-4.6); Glomerular Filtration Rate 86.6 mL/min (90-130); Glucose 251 mg/dL (65-115); Lipase 26 U/L (13-60); Osmolality Calculated 296 mOsm/kg (285-295); Sodium 140 mmol/L (136-145); Total Bilirubin 0.2 mg/dL (0.15-1.2); Total Protein 5.4 g/dL (6.6-8.7)
[2020-08-07 00:19] LABS: Alcohol Level < 10 mg/dL (0-10)
[2020-08-07 00:20] LABS: Anion Gap 15.5 (5-19); Aspartate Amino Transferase 23 U/L (0-32); Potassium 4.5 mmol/L (3.5-5.1)
[2020-08-07 00:23] LABS: Lactate (Lactic Acid level) 2.3 mmol/L (0.5-2.2)
[2020-08-07] MEDS: iohexol 300 mg/mL 100 mL Btl IV (00:47)
[2020-08-07 00:57] LABS: Troponin(5th) Baseline 8 ng/L (0-10)
[2020-08-07] MEDS: naloxone 0.4 mg/ml SDV IVP (01:10)
[2020-08-07] MEDS: piperacillin-tazobactam 3.375 GM in sodium chloride 0.9% (plus) 50 ML IV ×4 (01:12→23:56)
[2020-08-07] MEDS: sodium chloride 0.9% 1,000 ML 999 ML IV (01:16)
[2020-08-07 01:29] LABS: Amphetamines Screen Urine Negative (Negative); Barbiturates Screen Urine Positive (Negative); Benzodiazepines Screen Urine Positive (Negative); Cocaine Screen Urine Negative (Negative); Opiate Screen Urine Positive (Negative); PCP Screen Urine Negative (Negative); THC Screen Urine Negative (Negative)
[2020-08-07 01:41] LABS: Add Urine Microscopic? YES; Bilirubin Urine Neg (Negative); Blood Urine Neg (Negative); Glucose Urine UA Norm (Normal); Ketones Urine 1+ (Negative); Leukocyte Esterase Urine Negative (Negative); Nitrate Urine Negative (Negative); Protein Urine Trace (Negative); Urine Appearance SL Hazy (CLEAR); Urine Color Yellow (Yellow); Urobilinogen Urine 1 mg/dL (Negative); pH Urine 5 (5-7)
[2020-08-07 01:42] LABS: RBC Urine 0-4 /hpf (0-2); WBC Urine 0-4 /hpf (0-5)
[2020-08-07 01:43] LABS: Amorphous Sediment Urine 1+ /hpf; Bacteria Urine TRACE /hpf; Calcium Oxalate Crystals Urine 25-40 /hpf; Hyaline Casts Urine >100 /lpf; Mucus Urine 1+ /hpf; Squamous Epithelial Cell Urine 0-4 /hpf (0-5)
[2020-08-07 01:44] LABS: Add Urine Culture? No
[2020-08-07] MEDS: vancomycin 1,000 MG in sodium chloride 0.9% 250 ML 250 MG IV (01:51)
--- NOTE | 2020-08-07 03:22 | PC.NURSE ---
PT incontinent to bowel. Pt placed on the bedpan. PT linens changed. Pt placed in brief and chucks on the bed.
--- NOTE | 2020-08-07 04:50 | PM.HP ---
Providers/Chief Complaint Admitting Physician: Adryan Carlos MD Primary Care Provider: Paul Mike DO Chief Complaint: ABD PAIN History of Present Illness Sj Land is a 54 year old female who has history of gastric bypass, came in today after experiencing abdominal cramps and pain. Patient stating that her symptoms started about a week ago with abdominal pain, her pain has been gradually getting worse, it has awoke her from her sleep on few nights, she has not noticed any fever, dark-colored stool, fresh bleed per rectum, hemoptysis, hematemesis, but endorsing one episode of emesis. Her last meal was yesterday, she is able to pass flatus, she has been experiencing diarrhea for last 3 to 4 weeks as well. Abdominal pain would get worse approximate about 2 to 3 hours after eating. She has never explained these kind of symptoms before no history of ischemic colitis or mesenteric ischemia, A. fib, stroke or NE. Diagnosis in the ER revealed anemia, normal hemodynamics, lactic acid 2.3, CT abdomen revealed midgut volvulus with internal hernia, her blood pressure responded very well to fluid resuscitation and Narcan, initially her blood pressure was in 70s, after getting Narcan her blood pressure improved to 152/92, she received vancomycin and Zosyn in the ER, CT abdomen did not reveal any ischemic colitis/mesenteric ischemic changes Review of Systems Const: Reports: chills, body aches, change in appetite and fatigue; Denies: fever(s) Eyes: Denies: change in vision ENMT: Denies: throat pain Card: Denies: chest pain Resp: Denies: dyspnea GI: Reports: abdominal pain, nausea, vomiting and diarrhea : Denies: flank pain Musc: Denies: neck pain Skin/Breast: Denies: rash Neuro: Denies: headache(s) Psych: Denies: anxiety Endo: Denies: polyuria Miguel/Lymph: Denies: easy bruising All/Imm: Denies: urticaria Medications/Allergies Home Medications Medication Instructions Recorded Confirmed Last Taken Type alendronate 70 mg tablet See Rx Instructions .ROUTE .COMPLEX 11/12/19 07/01/20 01/16/20 History lidocaine 5 % topical patch See Rx Instructions .ROUTE .COMPLEX 11/12/19 07/01/20 01/17/20 History pregabalin 150 mg capsule 150 mg PO BID 11/12/19 07/01/20 01/21/20 History tizanidine 2 mg capsule 2 - 4 mg PO TID PRN 11/12/19 07/01/20 Unknown History tramadol 50 mg tablet 50 - 100 mg PO TID PRN 11/12/19 07/01/20 01/21/20 History sertraline 100 mg tablet 100 mg PO DAILY 12/20/19 07/01/20 01/21/20 History ugfpshdife-altrxdowbbxvh-nsvn 1 - 2 cap PO Q4H PRN 01/17/20 07/01/20 Unknown History clonazepam [Klonopin] 0.5 mg PO DAILY 01/17/20 07/01/20 Unknown History potassium chloride 20 meq PO DAILY 01/17/20 07/01/20 01/21/20 History promethazine 25 mg PO Q6H PRN 01/17/20 07/01/20 Unknown History albuterol sulfate 2.5 mg INHALATION Q4H PRN 01/22/20 07/01/20 Unknown History albuterol sulfate [Ventolin HFA] 2 puff INHALATION Q4H PRN 01/22/20 05/12/20 Unknown History tkrrkvkxyo-fkruiyoznnlyz-pfgw 1 cap PO Q4H PRN #20 cap 01/22/20 07/01/20 Unknown Rx [Fioricet] meloxicam [Mobic] 7.5 mg PO DAILY 01/22/20 07/01/20 01/21/20 History metoprolol tartrate 50 mg PO BID 01/22/20 07/01/20 Unknown History multivitamin [Multiple Vitamins] 1 tab PO DAILY 01/22/20 07/01/20 Unknown History oxycodone-acetaminophen 1 tab PO QID PRN 01/22/20 07/01/20 01/22/20 History CUSTOM FUNCTIONAL ORTHOTICS #1 ea 05/12/20 05/12/20 Unknown Rx Mezzo ankle brace #1 ea 05/16/20 Unknown Rx Allergies Allergy/AdvReac Type Severity Reaction Status Date / Time No Known Allergies Allergy Verified 07/01/20 14:18 PFSH Acute PFSH: Medical History Cervical disc disorder with myelopathy of mid-cervical region HTN (hypertension) HZV (herpes zoster virus) post herpetic neuralgia Smoker Surgical History History of lumbar spinal fusion (~2017) Dr. Elvin Leija, anterior L5-S1 fusion/fixation. Hx of gastric bypass Hx of hysterectomy Family History Father Cancer Family history of myocardial infarction Mother Lung disease Dementia Social History Smoking and tobacco status: current every day smoker cigarettes Alcohol intake: never Household members: spouse Marital status: Current occupational status: disabled History of recent travel: No Vitals/I&O/Wt Last Vital Signs Temp 97.5 F L 08/06/20 23:12 Pulse 77 08/07/20 04:18 Resp 17 08/07/20 04:18 BP 156/92 08/07/20 04:18 Pulse Ox 97 08/07/20 04:18 08/06/20 08/06/20 08/07/20 14:59 22:59 06:59 Intake Total 2795.833 / 2795.833 Balance 2795.833 / 2795.833 Weight last 48 hrs Weight 72.575 kg Physical Exam Narrative: EXAM NARRATIVE: middle-aged female who was in distress because of her IV line infiltration when I entered the room Pleasant and cooperative during my interview Saturating well on room air, normal hemodynamics S1, S2 no tachycardia or heart failure signs EOMI, PERRLA Appropriate mood and affect Abdomen soft, no active signs of peritonitis, pain not out of proportion to physical exam, bowel sounds present in all quadrants, slight tenderness on deep palpation in mid epigastric region, no active rigidity or guarding Neurologically no focal deficit Lungs are clear to auscultation No lower extremity edema gangrene ulcer Skin does not show any ulcers Data : 08/06/20 23:42 08/06/20 23:42 Micro: Microbiology 08/07/20 00:30 Blood Culture - Preliminary Blood SPECIMEN COLLECTED 08/07/20 00:55 Blood Culture - Preliminary Blood SPECIMEN COLLECTED A&P Assessment and plan (1) Midgut volvulus: Status: Acute (2) Dehydration: Status: Acute (3) Anemia: Status: Acute (4) Leukopenia: Status: Acute Additional A&P Information Midgut volvulus with internal hernia No sign of obstruction, no active ischemic colitis or mesenteric ischemic changes however I am suspecting chronic mesenteric ischemia because patient is endorsing abdominal pain after eating food especially within 2 to 4 hours of her meal intake No history of NE, A. fib, stroke or cancer or any hypercoagulable state No bright bleed per rectum, hematochezia, hematemesis Hemodynamically stable Dr. Ponce consulted, no acute surgical indication at this time, closely monitor, in December abdominal CT scan revealed swirling of mesenteric vessels without significant mesenteric volvulus at that time 08/05 CT abdomen revealed colitis, on today's imaging colon Wall thickening has improved relatively N.p.o., Zosyn for gram-negative and anaerobic coverage Fluid resuscitation with D5 half-normal saline Acute anemia In December her hemoglobin was 12, she is denying any hemoptysis, hematemesis, lower GI bleed, will repeat H&H to make sure this is true anemia, patient has been taking iron supplementation, recently she had EGD colonoscopy which was unremarkable as per the patient, done by Dr. Mike 1 month ago Occult blood test to be done however she has been taking iron supplementation Protonix 40 IV twice daily H&H at 8 AM Leukopenia: Recently Covid PCR test was done which was negative Lactic acidemia secondary to dehydration: Repeat lactic acid Monitor closely for signs of ischemic colitis versus mesenteric ischemia development with midgut volvulus N.p.o. DVT prophylaxis SCDs, avoid anticoagulation because of anemia and possible surgical intervention Full code Nicotine dependence: We will monitor if she would need nicotine replacement therapy while in the hospital Attestations Medical Necessity Statement*: Anticipating stay in the hospital course more than 2 midnights needs management for volvulus and investigation for anemia Time Spent in Patient Care: (>than 50% of time spent in counselling and/or direct pt care on unit). 40mins Coding Level of Care Code Acute Medical Research Associate for Chg Fwd Diagnoses Midgut volvulus Q43.3 Dehydration E86.0 Anemia D64.9 Leukopenia D72.819
--- NOTE | 2020-08-07 05:15 | PC.NURSE ---
pt arrived to unit and assisted to bed. introduction of staff and aidet completed at this time.
[2020-08-07] MEDS: dextrose 5%-sod chloride 0.45% 1,000 ML 30 ML IV (06:16)
--- NOTE | 2020-08-07 06:20 | PM.CONSULT ---
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 Attending Physician: Adryan Carlos MD Primary Care Provider: Paul Mike DO History of Present Illness History of Present Illness Sj Land is a 54 year old female who says that she has had a week history of some upper abdominal pain and some lower abdominal pain. She continues to pass stool and flatus. She does mention that she has had diarrhea for a month, however. She says she had an EGD and a colonoscopy a month ago and was apparently found to have a little gastritis in her gastric remnant (the patient is status post gastric bypass surgery). She says her colon was okay. She has had multiple CAT scans over the years and apparently has been seen to have some evidence of at least partial torsion following her gastric bypass surgery. The CAT scan that was done yesterday seemed to suggest that this may be worsening. She came into the emergency room and was initially found to be somewhat somnolent and it was suspected that she may have overtaken her narcotic pain medication at home. She says that she took her normal dosages yesterday. Review of Systems General: Reports: 10 or more systems reviewed and unremarkable except in HPI and below GI: Reports: abdominal pain and diarrhea (Over the past month) Neuro: Reports: other (Chronic back and extremity pain) Meds/Allergies Home Medications and Allergies Home Medications Medication Instructions Recorded Confirmed Last Taken Type alendronate 70 mg tablet See Rx Instructions .ROUTE .COMPLEX 11/12/19 07/01/20 01/16/20 History lidocaine 5 % topical patch See Rx Instructions .ROUTE .COMPLEX 11/12/19 07/01/20 01/17/20 History pregabalin 150 mg capsule 150 mg PO BID 11/12/19 07/01/20 01/21/20 History tizanidine 2 mg capsule 2 - 4 mg PO TID PRN 11/12/19 07/01/20 Unknown History tramadol 50 mg tablet 50 - 100 mg PO TID PRN 11/12/19 07/01/20 01/21/20 History sertraline 100 mg tablet 100 mg PO DAILY 12/20/19 07/01/20 01/21/20 History qljfhcjans-tqziqpcneyllg-vrun 1 - 2 cap PO Q4H PRN 01/17/20 07/01/20 Unknown History clonazepam [Klonopin] 0.5 mg PO DAILY 01/17/20 07/01/20 Unknown History potassium chloride 20 meq PO DAILY 01/17/20 07/01/20 01/21/20 History promethazine 25 mg PO Q6H PRN 01/17/20 07/01/20 Unknown History albuterol sulfate 2.5 mg INHALATION Q4H PRN 01/22/20 07/01/20 Unknown History albuterol sulfate [Ventolin HFA] 2 puff INHALATION Q4H PRN 01/22/20 05/12/20 Unknown History ioaeppyvlz-pemapgzazsaym-wvyq 1 cap PO Q4H PRN #20 cap 01/22/20 07/01/20 Unknown Rx [Fioricet] meloxicam [Mobic] 7.5 mg PO DAILY 01/22/20 07/01/20 01/21/20 History metoprolol tartrate 50 mg PO BID 01/22/20 07/01/20 Unknown History multivitamin [Multiple Vitamins] 1 tab PO DAILY 01/22/20 07/01/20 Unknown History oxycodone-acetaminophen 1 tab PO QID PRN 01/22/20 07/01/20 01/22/20 History CUSTOM FUNCTIONAL ORTHOTICS #1 ea 05/12/20 05/12/20 Unknown Rx Mezzo ankle brace #1 ea 05/16/20 Unknown Rx Allergies Allergy/AdvReac Type Severity Reaction Status Date / Time No Known Allergies Allergy Verified 07/01/20 14:18 Current Medications Current Medications Generic Name Dose Route Start Last Admin Trade Name Freq PRN Reason Stop Dose Admin Dextrose/Sodium Chloride 1,000 mls @ 30 mls/hr 08/07/20 05:32 08/07/20 06:16 Dextrose 5%-Sod Chloride 0.45% IV 30 mls/hr .Q24H WEST Administration PFSH Acute PFSH: Medical History Cervical disc disorder with myelopathy of mid-cervical region Chronic back pain HTN (hypertension) HZV (herpes zoster virus) post herpetic neuralgia Smoker Surgical History (Updated 08/07/20 @ 06:46 by Wai Ponce MD) History of lumbar spinal fusion (~2016) Dr. Elvin Leija, anterior L5-S1 fusion/fixation. History of wrist fracture R wrist fracture repair Hx of gastric bypass Hx of hysterectomy / BSO Status post cholecystectomy Family History Father Cancer Family history of myocardial infarction Mother Lung disease Dementia Social History (Updated 08/07/20 @ 06:46 by Wai Ponce MD) Smoking and tobacco status: current every day smoker cigarettes Packs smoked per day: 0.75 Years cigarettes smoked: 35 [ Other cigarette details: Used to smoke more heavily ] Alcohol intake: never Household members: spouse Marital status: Current occupational status: disabled History of recent travel: No Vitals/I&O/Wt Last Vital Signs Temp 98.1 F 08/07/20 05:44 Pulse 79 08/07/20 05:44 Resp 17 08/07/20 05:44 BP 145/87 08/07/20 05:44 Pulse Ox 96 08/07/20 05:44 08/06/20 08/06/20 08/07/20 14:59 22:59 06:59 Intake Total 2795.833 / 2795.833 Balance 2795.833 / 2795.833 Weight last 48 hrs Weight 160 lb Physical Exam Narrative: EXAM NARRATIVE: The patient was encountered in her hospital room. She does not appear to be in any acute distress. The pupils are equal. No carotid bruits are heard. The lungs are clear anteriorly. The heart is regular. The abdomen is moderately obese but is soft. I cannot elicit much in the way of tenderness today with the exception of some mild tenderness in the medial aspect of the left lower quadrant. This does not even always seem reproducible. She does seem to have a little bit of firmness in that region, however. The extremities reveal no edema. Neurologically the patient appears to be grossly intact. Data Micro: Micro: Microbiology 08/07/20 00:30 Blood Culture - Pr eliminary Blood SPECIMEN [facility] 08/07/20 00:55 Blood Culture - Pr eliminary Blood SPECIMEN [facility] Imaging^: CT Abd/Pel: Radiologist's impression: CT scan abdomen/pelvis 08/06/2020 IMPRESSION: Findings are worrisome for internal hernia and midgut volvulus. A&P Assessment and plan (1) Midgut volvulus: CT reviewed. I certainly see the radial appearance to the small bowel and mesentery that the radiologist has commented on. The patient does not appear to have an obvious obstruction from this, however. Interestingly, she appears to have significant solid stool in the ascending and especially the transverse colon despite her history of having loose stool every day. While I told her that this does not appear to be an emergency, I certainly cannot promise that some of her symptoms are not coming from the changes we see on the CAT scan. I made her aware that I do not do gastric bypass surgery and I am probably not the most well versed at the complications that can occur as a result. I do know that the emergency room physician made 7 or 8 phone calls last night in an attempt to get the patient to a physician who does do gastric bypass surgery for their opinion and treatment. Unfortunately, no hospitals had an open bed secondary to the ongoing COVID-19 pandemic. We discussed the fact that Dr. Crowley here in [facility] has more experience with bariatric surgery than anyone else; the patient did not have any interest in talking to anyone else at this time. Given the solid stool in the patient's colon and the fact that she continues to pass flatus, I asked her if she be willing to drink some magnesium citrate to see if we could evacuate her colon more and see if that made any difference in how she was feeling. She is agreeable. Status: Acute Consult Attestations Medical Necessity Statement: See admitting service's notation. 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
[2020-08-07] MEDS: pantoprazole 40 mg SDV IVP ×2 (06:24→17:17)
[2020-08-07] MEDS: lactated ringers 1,000 ML 75 ML IV ×2 (08:14→21:30)
[2020-08-07] MEDS: magnesium citrate Btl 296 mL PO (08:14)
[2020-08-07 09:21] LABS: Hematocrit 36.4 % (37.0-47.0)
--- NOTE | 2020-08-07 10:41 | PC.CHAP ---
Pastoral Care Encounter/Spiritual Assessment Type of Contact [] Declined correctional counselor/case manager visit [] Patient/Family/Request visit [] Outpatient visit [] Follow-up visit [] Physician referral [] Code/Alert [x] Routine visit [] Staff referral [] Actively dying [] Patient sleeping [] Family support [] [] Out of room [] Palliative care [] [x] Receiving care in room [] Pre-surgical visit [] Trauma [] Long length of stay [] ICU visit [] Other: Relational/Emotional Strength [x] Patient feels connected with others/family/visitors/staff [] Distress [] Loneliness/isolation [] Abandonment Spirituality of Patient [x] Person of Kasandra [] Attends Taoist of their [place] [x] Believes in Prayer [] Reads Bible or Yazidi materials [] There are Spiritual issues to be addressed Weapons And Tactics Instructor Interventions [x] Prayer [x] Active listening [x] Non-anxious presence [x] Spiritual/emotional support [] Crisis/trauma care [x] Spiritual counseling [] Bereavement support [] Provided bereavement packet [] Provided Bible/devotional materials [] Provided toy/stuffed animal, coloring book to patient or family member [] Provided Communion [] Anointing/[place] [] Salvation [x] Completed spiritual assessment [] Other: Impact on Illness or Injury [] Angry [] Fearful [x] Anxious [] Often cries [] Exhaustion [] Unable to work [] Unable to attend orthodoxy [] Unable to walk/stand [] Unable to read [] Unable to drive [] Unable to eat/drink [] Unable to sleep [] Unable to be with family [] Patient intubated [] Other: Summary The anju not active at times, doesn't know about the recovery at this point, wants to get betterm has a good attitude Time spent with patient 10 mins
[2020-08-07 10:42] LABS: Lactate (Lactic Acid level) 1.5 mmol/L (0.5-2.2)
--- NOTE | 2020-08-07 10:55 | P.PN_ITS ---
Subjective Subjective: Interval history: Patient reports feeling slightly better. Reports that with fluid intake she is not symptomatic. Reports that she continues to have diarrheal bowel movements and has flatus. Reports that her pain starts only when she eats solid food. Patient reports that approximately 4 weeks ago she had EGD and colonoscopy after which she thinks she started having discomfort. Reports that 3 weeks ago she had a fall because her legs could not hold her but she denies any trauma. Vitals/I&O/Wt Last Vital Signs Temp 98.3 F 08/07/20 08:00 Pulse 97 08/07/20 08:00 Resp 20 H 08/07/20 08:00 BP 151/97 08/07/20 08:00 Pulse Ox 95 08/07/20 08:00 08/06/20 08/07/20 08/07/20 22:59 06:59 14:59 Intake Total 2795.833 / 2795.833 Balance 2795.833 / 2795.833 Weight last 48 hrs Weight 72.575 kg Physical Exam Const: COMMON NORMALS: no acute distress and patient oriented x3 Resp: COMMON NORMALS: normal respiratory effort and clear to auscultation bilaterally AUSCULTATION: clear to auscultation bilaterally Cardio: COMMON NORMALS: regular rate, regular rhythm and S2 normal heart sound present RATE: regular rate RHYTHM: regular rhythm HEART SOUNDS: S2 normal heart sound present OTHER: No lower extremity edema GI: COMMON NORMALS: Normal to inspection, nondistended, normoactive bowel sounds present and Soft to palpation PALPATION: Yes Soft to palpation and Yes Tenderness to palpation present (GI) (Throughout.) Neuro: COMMON NORMALS: patient oriented x3 and no focal motor deficits Data : 08/07/20 08:58 08/06/20 23:42 Micro: Microbiology 08/07/20 09:30 Occult Blood (FIT) - Final Stool 08/07/20 00:30 Blood Culture - Preliminary Blood SPECIMEN COLLECTED 08/07/20 00:55 Blood Culture - Preliminary Blood SPECIMEN COLLECTED A&P Assessment and plan (1) Midgut volvulus: Status: Acute (2) Dehydration: Status: Acute (3) Anemia: Status: Acute (4) Leukopenia: Status: Acute Additional A&P Information Midgut volvulus with internal hernia No sign of obstruction, no active ischemic colitis or mesenteric ischemic changes however I am suspecting chronic mesenteric ischemia because patient is endorsing abdominal pain after eating food especially within 2 to 4 hours of her meal intake No history of NM, A. fib, stroke or cancer or any hypercoagulable state No bright bleed per rectum, hematochezia, hematemesis Hemodynamically stable Dr. Ponce consulted, no acute surgical indication at this time, closely monitor, in December abdominal CT scan revealed swirling of mesenteric vessels without s ignificant mesenteric volvulus at that time 08/05 CT abdomen revealed colitis, on today's imaging colon Wall thickening has improved relatively N.p.o., Zosyn for gram-negative and anaerobic coverage Fluid resuscitation with D5 half-normal saline Acute anemia In December her hemoglobin was 12, she is denying any hemoptysis, hematemesis, lower GI bleed, will repeat H&H to make sure this is true anemia, patient has been taking iron supplementation, recently she had EGD colonoscopy which was unremarkable as per the patient, done by Dr. Mike 1 month ago Occult blood test to be done however she has been taking iron supplementation Protonix 40 IV twice daily H&H at 8 AM Leukopenia: Recently Covid PCR test was done which was negative Lactic acidemia secondary to dehydration: Repeat lactic acid Monitor closely for signs of ischemic colitis versus mesenteric ischemia development with midgut volvulus N.p.o. DVT prophylaxis SCDs, avoid anticoagulation because of anemia and possible surgical intervention Full code Nicotine dependence: We will monitor if she would need nicotine replacement th erapy while in the hospital PLAN: Continue current monitoring and treatment. Appreciate Dr. Ponce's help. Continue Zosyn to cover abdominal jacey. We will restart some of the patient's home medications. Continue with SCDs for DVT prophylaxis for now. Continue monitoring CBC. Attestations Medical Necessity Statement*: Patient with volvulus requires close inpatient monitoring, treatment and evaluation. 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
[2020-08-07] MEDS: pneumococcal (23 valent) SDV 0.5 mL IM (10:58)
[2020-08-07] MEDS: sertraline 100 mg Tablet PO (11:47)
[2020-08-07] MEDS: morphine 4 mg/mL SDV 1 mL 2 MG IVP (13:49)
[2020-08-07] MEDS: oxyCODONE-APAP 5-325 mg Tablet 1 TAB PO ×2 (15:54→22:25)
[2020-08-07] MEDS: metoprolol tartrate 50 mg Tablet PO (17:17)
[2020-08-07] MEDS: pregabalin 150 mg Capsule PO (17:18)
[2020-08-08] VITALS (12 sets, daily range): BP systolic 60–166; BP diastolic 30–105; PULSE 69–98; RESP 14–18; TEMP 36.6–37.2; O2SAT 91–96
[2020-08-08 02:38] LABS: Eosinophils # 0.1 10^3/uL (0.0-0.8); Lymphocytes # 1.4 10^3/uL (0.8-4.8); Lymphocytes % 36.4 %; Mean Corpuscular HGB Conc 30.3 g/dL (30.0-36.0); Mean Corpuscular Hemoglobin 26.6 pg (28.0-34.0); Mean Corpuscular Volume 87.8 fL (81-99); Mean Platelet Volume 9.9 fL (7.4-10.4); Monocytes # 0.4 10^3/uL (0.2-0.9); Monocytes % 10.9 %; Neutrophils # 1.92 10^3/uL (1.8-7.7); Neutrophils % 48.4 %; Nucleated Red Blood Cells % 0 %; Platelet Count 356 10^3/cmm (130-400); Red Blood Count 3.76 10^6/uL (4.1-5.3); Red Cell Distribution Width 15.3 % (12.1-15.1)
[2020-08-08 03:03] LABS: Alanine Aminotransferase 17 U/L (0-33); Albumin Level 3.6 g/dL (3.5-5.2); Alkaline Phosphatase 86 IU/L (35-105); Anion Gap 11.6 (5-19); Aspartate Amino Transferase 25 U/L (0-32); Blood Urea Nitrogen 2 mg/dL (6-20); Calcium 8.6 mg/dL (8.5-10.5); Carbon Dioxide 27 mmol/L (22-29); Chloride 106 mmol/L (98-107); Creatinine Clr Calc Pharmacy 125.4062; Globulin 2.3 g/dL (1.3-4.6); Glomerular Filtration Rate 127.6 mL/min (90-130); Glucose 98 mg/dL (65-115); Osmolality Calculated 288 mOsm/kg (285-295); Potassium 3.6 mmol/L (3.5-5.1); Sodium 141 mmol/L (136-145); Total Bilirubin 0.2 mg/dL (0.15-1.2); Total Protein 5.9 g/dL (6.6-8.7)
[2020-08-08 03:04] LABS: Magnesium 2.1 mg/dL (1.7-2.3)
[2020-08-08] MEDS: acetaminophen 500 mg Tablet PO (03:11)
[2020-08-08] MEDS: pantoprazole 40 mg SDV IVP ×2 (06:10→17:20)
[2020-08-08] MEDS: piperacillin-tazobactam 3.375 GM in sodium chloride 0.9% (plus) 50 ML IV ×3 (07:25→23:30)
[2020-08-08] MEDS: oxyCODONE-APAP 5-325 mg Tablet 1 TAB PO ×2 (07:26→13:45)
[2020-08-08] MEDS: sertraline 100 mg Tablet PO (08:46)
[2020-08-08] MEDS: lactated ringers 1,000 ML 75 ML IV ×2 (08:46→23:30)
[2020-08-08] MEDS: metoprolol tartrate 50 mg Tablet PO ×2 (08:46→17:20)
[2020-08-08] MEDS: pregabalin 150 mg Capsule PO ×2 (08:46→17:20)
--- NOTE | 2020-08-08 09:30 | P.PN_ITS ---
Subjective Subjective: Interval history: Patient had multiple bowel movements yesterday. She says she is not sure it made her abdomen feel any differently. She is getting hungry, however. She does mention that she seemed to have more pain when she came in after she would eat solid food. Vitals/I&O/Wt Last Vital Signs Temp 98.1 F 08/08/20 08:00 Pulse 98 08/08/20 08:00 Resp 18 08/08/20 08:00 BP 148/100 08/08/20 08:00 Pulse Ox 94 08/08/20 08:00 08/07/20 08/08/20 08/08/20 22:59 06:59 14:59 Intake Total 1525 / 2109.167 290 / 2109.167 1295 / 1295 Balance 1525 / 2109.167 290 / 2109.167 1295 / 1295 Weight last 48 hrs Weight 160 lb Physical Exam Narrative: EXAM NARRATIVE: The patient's abdomen is very soft and has minimal scattered tenderness today. Data : 08/08/20 02:30 08/08/20 02:30 Micro: Microbiology 08/07/20 00:30 Blood Culture - Preliminary Blood NEGATIVE TO DATE 08/07/20 00:55 Blood Culture - Preliminary Blood NEGATIVE TO DATE 08/07/20 09:30 Occult Blood (FIT) - Final Stool A&P Assessment and plan (1) Midgut volvulus: CT reviewed on presentation. I certainly see the radial appearance to the small bowel and mesentery that the radiologist has commented on. The patient does not appear to have an obvious obstruction from this, however. Considerations include a complication of her gastric bypass surgery and/or adhesions from her previous spinal surgery (anterior approach). We have discussed exploration/adhesio lysis, etc. I told her that if she shows any evidence of obstruction then we may not have a choice, but otherwise this is somewhat of a trujillo knowing that more adhesions could form in the future. She understands. I am going to advance the patient to a soft diet and see how she does. Status: Acute Attestations Medical Necessity Statement*: See admitting service's notation. 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
--- NOTE | 2020-08-08 11:29 | PM.PN ---
Subjective Subjective: Interval history: Patient reports feeling better this morning. She denies abdominal pain during my evaluation. Reports that she is tolerating clear liquids well and wants to try something solid. Continues to have diarrheal bowel movements. Passes gas. Denies being nauseous. Reports ambulating without difficulty. Her blood cultures 2 out of 4 came back positive with gram-positive cocci. This appears to be a contamination. Vitals/I&O/Wt Last Vital Signs Temp 98.1 F 08/08/20 08:00 Pulse 98 08/08/20 08:00 Resp 18 08/08/20 08:00 BP 148/100 08/08/20 08:00 Pulse Ox 94 08/08/20 08:00 08/07/20 08/08/20 08/08/20 22:59 06:59 14:59 Intake Total 1525 / 1819.167 290 / 2109.167 1295 / 1295 Balance 1525 / 1819.167 290 / 2109.167 1295 / 1295 Weight last 48 hrs Weight 72.575 kg Physical Exam Const: COMMON NORMALS: no acute distress and patient oriented x3 Resp: COMMON NORMALS: normal respiratory effort and clear to auscultation bilaterally AUSCULTATION: clear to auscultation bilaterally Cardio: COMMON NORMALS: regular rate, regular rhythm and S2 normal heart sound present RATE: regular rate RHYTHM: regular rhythm HEART SOUNDS: S2 normal heart sound present OTHER: No lower extremity edema GI: COMMON NORMALS: Normal to inspection, nondistended, normoactive bowel sounds present and Soft to palpation PALPATION: Yes Soft to palpation and Yes Tenderness to palpation present (GI) (Throughout.) Neuro: COMMON NORMALS: patient oriented x3 and no focal motor deficits Data : 08/08/20 02:30 08/08/20 02:30 Micro: Microbiology 08/07/20 00:55 Blood Culture - Preliminary Blood Gram positive cocci 08/07/20 00:30 Blood Culture - Preliminary Blood NEGATIVE TO DATE 08/07/20 09:30 Occult Blood (FIT) - Final Stool A&P Assessment and plan (1) Midgut volvulus: Status: Acute (2) Dehydration: Status: Acute (3) Anemia: Status: Acute (4) Leukopenia: Status: Acute Additional A&P Information Midgut volvulus with internal hernia No sign of obstruction, no active ischemic colitis or mesenteric ischemic changes however I am suspecting chronic mesenteric ischemia because patient is endorsing abdominal pain after eating food especially within 2 to 4 hours of her meal intake No history of HI, A. fib, stroke or cancer or any hypercoagulable state No bright bleed per rectum, hematochezia, hematemesis Hemodynamically stable Dr. Ponce consulted, no acute surgical indication at this time, closely monitor, in December abdominal CT scan revealed swirling of mesenteric vessels without significant mesenteric volvulus at that time 08/05 CT abdomen revealed colitis, on today's imaging colon Wall thickening has improved relatively N.p.o., Zosyn for gram-negative and anaerobic coverage Fluid resuscitation with D5 half-normal saline Acute anemia In December her hemoglobin was 12, she is denying any hemoptysis, hematemesis, lower GI bleed, will repeat H&H to make sure this is true anemia, patient has been taking iron supplementation, recently she had EGD colonoscopy which was unremarkable as per the patient, done by Dr. Mike 1 month ago Occult blood test to be done however she has been taking iron supplementation Protonix 40 IV twice daily H&H at 8 AM Leukopenia: Recently Covid PCR test was done which was negative Lactic acidemia secondary to dehydration: Repeat lactic acid Monitor closely for signs of ischemic colitis versus mesenteric ischemia development with midgut volvulus N.p.o. DVT prophylaxis SCDs, avoid anticoagulation because of anemia and possible surgical intervention Full code Nicotine dependence: We will monitor if she would need nicotine replacement therapy while in the hospital PLAN: We will continue Zosyn for now. Repeat blood cultures today and tomorrow morning. Patient's diet was advanced this a.m. Depending on progress decision may need to be made for exploratory laparotomy. Attestations Medical Necessity Statement*: Patient with concern for partial small bowel obstruction requires close inpatient monitoring and treatment until deemed safe for discharge. 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
--- NOTE | 2020-08-08 11:41 | PC.RESP ---
Smoking Cessation information sent to patient.
--- NOTE | 2020-08-08 18:27 | PC.NURSE ---
END OF SHIFT SUMMARY pt had uneventful day. pt a/ox4 and is very pleasant. pt able to ambulate some in room. pt currently resting in bed with call light within reach.
--- NOTE | 2020-08-08 21:04 | PC.NURSE ---
FRENCH DRAWER reported to Nurse patient blood pressure was 60/30 manual, Nurse manually rechecked and confirmed BP was 60/30. Charge nurse notified. Dr Carlos was notified and new orders recieved for 2L bolus of Normal Saline. PT oxygen was 87% at RA, Nurse applied 2L O2 NC and O2 sat came up to 94% Nurse monitoring PT at the bedside. BP rechecked after first 1 L NS Bolus BP 82/52. PT denies any pain at this time. LS clear, BS positive X4, ABD soft and slightly tender to palpation. Nurse is continuing to monitor at the bedside.
[2020-08-08] MEDS: sodium chloride 0.9% 1,000 ML 999 ML IV ×2 (21:35→21:39)
[2020-08-09] VITALS (7 sets, daily range): BP systolic 102–164; BP diastolic 64–103; PULSE 68–83; RESP 17–20; TEMP 36.7–37; O2SAT 94–97
[2020-08-09] MEDS: oxyCODONE-APAP 5-325 mg Tablet 1 TAB PO ×2 (04:13→10:53)
[2020-08-09 05:39] LABS: Basophils % 0.6 %; Eosinophils # 0.1 10^3/uL (0.0-0.8); Eosinophils % 3.3 %; Hematocrit 32.9 % (37.0-47.0); Hemoglobin 9.5 g/dL (11.5-15.3); Lymphocytes # 1.1 10^3/uL (0.8-4.8); Lymphocytes % 32.3 %; Mean Corpuscular HGB Conc 28.9 g/dL (30.0-36.0); Mean Corpuscular Hemoglobin 26.5 pg (28.0-34.0); Mean Corpuscular Volume 91.6 fL (81-99); Mean Platelet Volume 9.9 fL (7.4-10.4); Monocytes # 0.3 10^3/uL (0.2-0.9); Monocytes % 10.3 %; Neutrophils # 1.76 10^3/uL (1.8-7.7); Neutrophils % 53.2 %; Nucleated Red Blood Cells % 0 %; Platelet Count 293 10^3/cmm (130-400); Red Blood Count 3.59 10^6/uL (4.1-5.3); Red Cell Distribution Width 15.6 % (12.1-15.1); White Blood Count 3.3 10^3/uL (4.0-10.0)
[2020-08-09] MEDS: pantoprazole 40 mg SDV IVP (06:28)
[2020-08-09] MEDS: piperacillin-tazobactam 3.375 GM in sodium chloride 0.9% (plus) 50 ML IV (07:08)
[2020-08-09 08:24] LABS: Alanine Aminotransferase 17 U/L (0-33); Albumin Level 3.8 g/dL (3.5-5.2); Alkaline Phosphatase 84 IU/L (35-105); Anion Gap 14.6 (5-19); Aspartate Amino Transferase 27 U/L (0-32); Blood Urea Nitrogen 3 mg/dL (6-20); Calcium 8.6 mg/dL (8.5-10.5); Carbon Dioxide 25 mmol/L (22-29); Chloride 109 mmol/L (98-107); Glomerular Filtration Rate 103.4 mL/min (90-130); Glucose 90 mg/dL (65-115); Magnesium 1.8 mg/dL (1.7-2.3); Osmolality Calculated 296 mOsm/kg (285-295); Potassium 3.6 mmol/L (3.5-5.1); Sodium 145 mmol/L (136-145); Total Bilirubin 0.2 mg/dL (0.15-1.2); Total Protein 5.8 g/dL (6.6-8.7)
--- NOTE | 2020-08-09 08:43 | P.PN_ITS ---
Subjective Subjective: Interval history: Patient says she is feeling better and is ready to go home. She had another loose bowel movement this morning but she has been tolerating an oral diet. Vitals/I&O/Wt Last Vital Signs Temp 98.2 F 08/09/20 07:27 Pulse 83 08/09/20 07:27 Resp 18 08/09/20 07:27 BP 164/93 08/09/20 07:27 Pulse Ox 96 08/09/20 07:27 08/08/20 08/09/20 08/09/20 22:59 06:59 14:59 Intake Total 1476.6 / 3111.6 50 / 3111.6 Balance 1476.6 / 3111.6 50 / 3111.6 Physical Exam Narrative: EXAM NARRATIVE: No concerning tenderness on exam. Data : 08/09/20 05:17 08/09/20 07:34 Micro: Microbiology 08/09/20 05:13 Blood Culture - Preliminary Blood SPECIMEN COLLECTED 08/09/20 05:17 Blood Culture - Preliminary Blood SPECIMEN COLLECTED 08/08/20 15:24 Blood Culture - Preliminary Blood SPECIMEN COLLECTED 08/07/20 00:55 Blood Culture - Preliminary Blood Gram positive cocci A&P Assessment and plan (1) Midgut volvulus: CT reviewed on presentation. I certainly see the radial appearance to the small bowel and mesentery that the radiologist has commented on. The patient does not appear to have an obvious obstruction from this, however. Considerations include a complication of her gastric bypass surgery and/or adhesions from her previous spinal surgery (anterior approach). We have discussed exploration/adhesiolysis, etc. I told her that if she shows any evidence of obstruction then we may not have a choice, but otherwise this is somewhat of a trujillo knowing that more adhesions could form in the future. She understands. The patient appears to be doing well. I am okay with her being discharged with PRN follow-up. Status: Acute Attestations Medical Necessity Statement*: See admitting service's notation. 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
[2020-08-09] MEDS: metoprolol tartrate 50 mg Tablet PO (09:18)
[2020-08-09] MEDS: acetaminophen 500 mg Tablet PO (09:18)
[2020-08-09] MEDS: pregabalin 150 mg Capsule PO (09:18)
[2020-08-09] MEDS: sertraline 100 mg Tablet PO (09:20)
--- NOTE | 2020-08-09 09:45 | PM.DCS ---
Discharge Providers Date of Admission: 08/07/20 03:12 Date of Discharge: August 09, 2020 Attending Provider at Admission: Adryan Carlos MD Attending Provider at Discharge: Jean Dillon MD Primary Care Provider: Paul Mike DO Diagnoses at Discharge Discharge Diagnosis (1) Midgut volvulus: Status: Acute (2) Bacteremia: Status: Acute (3) Leukopenia: Status: Acute (4) Anemia: Status: Acute (5) Dehydration: Status: Acute Reason for Visit Reason for Visit: ABD PAIN Hospital Course Discharge Summary: Patient presented with abdominal pain and found to have some midgut volvulus findings on imaging. She was treated conservatively with laxatives and IV fluids and gradually improved and this morning reports that her abdominal pain is completely gone. She is able to tolerate solid food. She had no bowel movement this morning but had several diarrheal bowel movements yesterday. She is passing gas and denies nausea. She feels strong enough to be dismissed home. Her blood cultures were positive with gram-positive cocci with clusters and with chains which felt to be a contamination. Repeat blood cultures so far negative. At this point no antibiotic will be continued. I will request however 1 more repeat blood culture in several days prior to primary care physician follow-up. This morning patient denies shortness of breath or chest pain. Denies sweats. She is hemodynamically stable. Discussed with Dr. Ponce and we will go ahead and dismiss patient home Physical Exam Const: COMMON NORMALS: no acute distress and patient oriented x3 Resp: COMMON NORMALS: normal respiratory effort and clear to auscultation bilaterally AUSCULTATION: clear to auscultation bilaterally Cardio: COMMON NORMALS: regular rate, regular rhythm and S2 normal heart sound present RATE: regular rate RHYTHM: regular rhythm HEART SOUNDS: S2 normal heart sound present OTHER: No lower extremity edema GI: COMMON NORMALS: Normal to inspection, nondistended, normoactive bowel sounds present, Soft to palpation and non-tender PALPATION: Yes Soft to palpation Neuro: COMMON NORMALS: patient oriented x3 and no focal motor deficits Discharge Data Data Completed and Pending: Completed Studies During Hospitalization Category Date Time Status CT abdomen pelvis w con* [id number] Urge nt Cat Scan 08/06/20 23:30 Completed XR chest 1V anitra ble [id number] Urgent Exams 08/06/20 23:26 Completed Pending at discharge Category Date Time Status Blood Culture AM LABS Lab 08/09/20 05:13 Results Blood Culture Rou reji Lab 08/08/20 11:29 Results Blood Culture Sta t Lab 08/07/20 00:30 Results Complete Blood Co unt w/Auto AM LABS Lab 08/10/20 04:00 Ordered Comprehensive Met abolic Panel AM LA BS Lab 08/10/20 04:00 Ordered Magnesium AM LABS Lab 08/10/20 04:00 Ordered Labs from last 24 hours 08/09/20 08/09/20 08/09/20 07:34 05:17 05:17 WBC RBC Hgb Hct MCV MCH MCHC RDW Plt Count MPV Neut % (Auto) Lymph % (Auto) [place] % (Auto) Eos % (Auto) Baso % (Auto) Neut # (Auto) Lymph # (Auto) [place] # (Auto) Eos # (Auto) Baso # (Auto) Nucleated RBC % (a uto) Nucleated RBCs # Sodium 145 Cancelled Potassium 3.6 Cancelled Chloride 109 H Cancelled Carbon Dioxide 25 Cancelled Anion Gap 14.6 Cancelled BUN 3 L Cancelled Creatinine 0.6 Cancelled GFR Calculation 103.4 Cancelled Glucose 90 Cancelled Calculated Osmolal ity 296 H Cancelled Calcium 8.6 Cancelled Magnesium 1.8 Cancelled Total Bilirubin 0.2 Cancelled AST 27 Cancelled ALT 17 Cancelled Alkaline Phosphata se 84 Cancelled Total Protein 5.8 L Cancelled Albumin 3.8 Cancelled Globulin 2.0 Cancelled 08/09/20 05:17 WBC 3.3 L RBC 3.59 L Hgb 9.5 L Hct 32.9 L MCV 91.6 MCH 26.5 L MCHC 28.9 L RDW 15.6 H Plt Count 293 MPV 9.9 Neut % (Auto) 53.2 Lymph % (Auto) 32.3 [place] % (Auto) 10.3 Eos % (Auto) 3.3 Baso % (Auto) 0.6 Neut # (Auto) 1.76 L Lymph # (Auto) 1.1 [place] # (Auto) 0.3 Eos # (Auto) 0.1 Baso # (Auto) 0.0 Nucleated RBC % (a uto) 0 Nucleated RBCs # 0.0 Sodium Potassium Chloride Carbon Dioxide Anion Gap BUN Creatinine GFR Calculation Glucose Calculated Osmolal ity Calcium Magnesium Total Bilirubin AST ALT Alkaline Phosphata se Total Protein Albumin Globulin Vitals: Last Vital Signs Temp 98.2 F 08/09/20 07:27 Pulse 83 08/09/20 07:27 Resp 18 08/09/20 07:27 BP 164/93 08/09/20 07:27 Pulse Ox 96 08/09/20 07:27 Discharge Plan Discharge Patient Disposition: Home Condition: Stable Prescriptions: New pantoprazole [Protonix] 40 mg tablet,delayed release (DR/EC) 40 mg PO Q12H Qty: 60 RF: 0 Continued alendronate 70 mg tablet See Rx Instructions .ROUTE .COMPLEX RF: 0 pregabalin [Lyrica] 150 mg capsule 150 mg PO BID RF: 0 tramadol 50 mg tablet 50 - 100 mg PO TID PRN (Reason: PAIN) RF: 0 tizanidine 2 mg capsule 2 - 4 mg PO TID PRN (Reason: Muscle Pain) RF: 0 lidocaine [Lidoderm] 5 % adhesive patch,medicated See Rx Instructions .ROUTE .COMPLEX RF: 0 (DME) CUSTOM FUNCTIONAL ORTHOTICS See Rx Instructions .Route .MEDSUPPLY Qty: 1 RF: 0 sertraline 100 mg tablet 100 mg PO DAILY RF: 0 (DME) Mezzo ankle brace See Rx Instructions .Route .MEDSUPPLY Qty: 1 RF: 0 multivitamin [Multiple Vitamins] Tablet 1 tab PO DAILY RF: 0 albuterol sulfate 2.5 mg /3 mL (0.083 %) Solution For Nebulization 2.5 mg INHALATION Q4H PRN (Reason: Shortness Of Breath) RF: 0 metoprolol tartrate 50 mg Tablet 50 mg PO BID RF: 0 oxycodone-acetaminophen 7.5-325 mg Tablet 1 tab PO QID PRN (Reason: Pain) RF: 0 albuterol sulfate [Ventolin HFA] 90 mcg/actuation Hfa Aerosol Inhaler 2 puff INHALATION Q4H PRN (Reason: Shortness Of Breath) RF: 0 rzmiksbcej-hscgzparnivoe-ziwk [Fioricet] 50-300-40 mg capsule 1 cap PO Q4H PRN (Reason: headache) Qty: 20 RF: 0 alprazolam 0.25 mg tablet 0.25 mg PO BID PRN (Reason: Anxiety) RF: 0 promethazine 25 mg Tablet 25 mg PO Q6H PRN (Reason: Nausea) RF: 0 arisniayxk-nybqukwthwirc-iekx 50-300-40 mg Capsule 1 - 2 cap PO Q4H PRN (Reason: Headache) RF: 0 potassium chloride 20 mEq Tablet Extended Release 20 meq PO DAILY RF: 0 Discontinued meloxicam [Mobic] 7.5 mg Tablet 7.5 mg PO DAILY RF: 0 Discharge Orders: Discharge Order (Routine); Ordered 08/09/20 Ordered By: Jean Dillon Other Ambulatory Orders: Complete Blood Count w/Auto (Routine) Timeframe: 3 Days Location: Determined by Patient Ordered By: Jean Dillon Blood Culture (Routine) Timeframe: 3 Days Facility: [facility] - Location: Lab - Main Lab Ordered By: Jean Dillon Referrals: Paul Mike DO [Primary Care Provider] - 4-7 days Discharge Diet: Advance as tolerated Discharge Activity: Resume usual activity Activity Restrictions/Additional Instructions: Please call your doctor or present to emergency department if your condition worsens or you develop diarrhea, lightheadedness, fatigue or see blood in your stool or black stool. Please notify your doctor or present to emergency department if you notice low blood pressure, nausea, fever/chills or sweats as it could possibly be secondary to true blood infection and will need to be further evaluated as we have discussed. Please discuss with your doctor to review blood cultures obtained in hospital to make sure they remain negative otherwise you will need to be hospitalized for IV antibiotics as we have discussed. Please follow-up with Dr. Ponce if needed especially if you are abdominal pain recurs. Discharge Attestations Time Spent in Discharge Care*: greater than 30 min Quality Metrics Clinical Quality Measures During this hospital stay, did patient experience: None Coding Level of Care Code Acute [place] for g Fwd Diagnoses Midgut volvulus Q43.3 Bacteremia R78.81 Leukopenia D72.819 Anemia D64.9 Dehydration E86.0
== END 2020-08-09 12:45 | disposition home or self-care (01) | DRG 389 ==
LOC: ER 08-07 03:12 → MEDSURG 08-07 04:00
PROVIDERS: Emergency Medicine; Admitting Provider Internal Medicine; PCP Electrodiagnostic Medicine; Visit Provider Internal Medicine
DX: K56.2 Volvulus (principal); R78.81 Bacteremia; K46.0 Unspecified abdominal hernia with obstruction, without gangrene; E86.0 Dehydration; D64.9 Anemia, unspecified; M79.2 Neuralgia and neuritis, unspecified; I10 Essential (primary) hypertension; F17.210 Nicotine dependence, cigarettes, uncomplicated; Z98.84 Bariatric surgery status
CPT/HCPCS: 12345; 36415; 36416; 71045; 74177; 80053; 80306; 80307; 81001; 82274; 82962; 83605; 83690; 83735; 84484; 85014; 85018; 85025; 85610; 86850; 86900; 87040; 87205; 90471; 90732; 93005; 96375; 99284; C9113; J2270; J2310; J2543; J3370; J7030; J7040; J7050; J7799; Q9967

== ENCOUNTER → 2020-08-12 13:35 | Outpatient (BNVA) | payer MEDICARE, OTHER, SELFPAY | PROVIDERS: PCP Electrodiagnostic Medicine; Visit Provider Podiatrist Foot & Ankle Surgery | DX: M85.872 Other specified disorders of bone density and structure, left ankle and foot (principal) | CPT/HCPCS: 73630 ==

== ENCOUNTER 2020-08-21 14:48 | Emergency (ER) | payer MEDICARE, OTHER, SELFPAY ==
[2020-08-21 14:56] VITALS: BP 123/83; PULSE 78; RESP 18; TEMP 36.5; O2SAT 99; BMI 24.7
--- NOTE | 2020-08-21 15:40 | XRR_ITS ---
PROCEDURE INFORMATION: Exam: XR Right Knee Exam date and time: 08/21/2020 3:41 PM Age: 54 years old Clinical indication: Pain and injury or trauma; Fall; Blunt trauma; Knee; Right; Additional info: Knee pain S/P fall TECHNIQUE: Imaging protocol: XR Right knee. Views: 3 views. COMPARISON: CR Knee 3 views, RIGHT* [id number] 07/01/2015 4:10 AM FINDINGS: Bones/joints: Negative for acute abnormality. Soft tissues: Unremarkable XR/XR knee RT 3V* [id number] IMPRESSION: No acute findings.
--- NOTE | 2020-08-21 15:41 | W.ED.EXTPRO ---
HPI - Extremity Problem General: Chief complaint: Extremity Injury, Lower Stated complaint: RIGHT KNEE PAIN, BACK PAIN Time Seen by Provider: 08/21/20 15:32 History of Present Illness: HPI Narrative: 54-year-old female patient presents to the emergency department status post fall 3 days ago. She is complaining of back pain, chronic in nature, right knee pain. She reports back pain radiating to the right knee. Reports bilateral lower extremity weakness that is chronic. Primary care provider Dr. Mike, reports history of lumbar fusion. She reports fall occurred 3 days ago, states fell out of her camper while trying to go down the steps. She also reports an additional fall prior due to leg weakness. She reports follow-up with Dr. Mike but is not able to have work-up at this time due to her other chronic issues with her stomach. She reports pain is not present all the time. States able to ambulate without reproduction of pain at times. MD Complaint: joint pain (rt knee) Onset (ago): day(s) (3) Pain Consistency: intermittent Location: right, lower extremity and knee Severity scale (1-10): 5 Quality: aching and dull Relieving factors: immobilization and rest Exacerbating factors: weight bearing Associated symptoms: Reports arthralgias; Deny chest pain, fever(s) or rash Review of Systems General: Reports: 10 or more systems reviewed and unremarkable except in HPI and below Const: Denies: fever(s), chills or diaphoresis Eyes: Denies: blurry vision or eye redness ENMT: Denies: throat pain, dental pain or disequilibrium Card: Denies: chest pain, palpitations or irregular heart rhythm Resp: Denies: dyspnea, productive cough, non-productive cough or wheezing GI: Denies: abdominal pain, nausea or vomiting : Denies: difficulty voiding or dysuria Musc: Denies: back pain Skin/Breast: Denies: rash or pruritus Neuro: Reports: weakness in extremities (chronic) and difficulty walking (due to rt knee pain); Denies: headache(s), confusion or behavioral changes Miguel/Lymph: Denies: easy bruising PFS ED PFSH: Medical History Cervical disc disorder with myelopathy of mid-cervical region Chronic back pain HTN (hypertension) HZV (herpes zoster virus) post herpetic neuralgia Smoker Surgical History History of lumbar spinal fusion (~2017) Dr. Elvin Leija, anterior L5-S1 fusion/fixation. History of wrist fracture R wrist fracture repair Hx of gastric bypass Hx of hysterectomy / BSO Status post cholecystectomy Family History Father Cancer Family history of myocardial infarction Mother Lung disease Dementia Social History Smoking and tobacco status: current every day smoker cigarettes Packs smoked per day: 0.75 Years cigarettes smoked: 35 [ Other cigarette details: Used to smoke more heavily ] Alcohol intake: never Household members: spouse Marital status: Current occupational status: disabled History of recent travel: No Physical Exam Const: COMMON NORMALS: no acute distress, patient oriented x3, healthy appearing and alert GENERAL APPEARANCE: cooperative, comfortable and well hydrated HENMT: COMMON NORMALS: normocephalic, Normal external nose present and moist oral mucous membranes HEAD & SCALP: normocephalic NOSE: Normal external nose present Eye: COMMON NORMALS: Equal, round and reactive pupils present and EOMs intact bilaterally GENERAL EYE: appearance normal, both eyes and all related structures PUPIL: Yes Equal, round and reactive pupils present Neck/C-Spine: COMMON NORMALS: full ROM and no lymphadenopathy GENERAL: Yes normal visual inspection and Yes trachea midline CERVICAL SPINE: Yes cervical ROM normal, No pain with cervical ROM, No Cervical spine tenderness and No Paracervical muscle tenderness Lymph: LYMPHATIC: no lymphadenopathy noted Chest: COMMONS NORMALS: normal inspection of the chest Resp: COMMON NORMALS: normal respiratory effort and clear to auscultation bilaterally AUSCULTATION: clear to auscultation bilaterally Cardio: COMMON NORMALS: regular rhythm, S1 normal heart sound present, S2 normal heart sound present and Peripheral pulses 2+ throughout RHYTHM: regular rhythm HEART SOUNDS: S1 normal heart sound present and S2 normal heart sound present PERIPHERAL PULSES: Peripheral pulses 2+ throughout GI: COMMON NORMALS: Soft to palpation and non-tender INSPECTION: Yes normal to inspection PALPATION: Yes Soft to palpation : COMMON NORMALS: Yes no CVA tenderness BLADDER/KIDNEY EXAM: Yes no CVA tenderness and No CVA tenderness Back/Pelvis: COMMON NORMALS: no CVA tenderness, thoracic and lumbar spine normal to inspection and no thoracic nor lumbar tenderness GENERAL BACK: No CVA tenderness THORACIC SPINE/UPPER BACK: Yes normal to inspection, Yes thoracic ROM normal, No thoracic spinal tenderness, Yes paraspinal muscle tenderness Thoracic paraspinal muscle tenderness: left and No paraspinal muscle spasm LUMBAR SPINE/LOWER BACK: Yes ROM limited (due to pain), No lumbar spinal tenderness, No paraspinal muscle spasm, Yes straight leg raise negative bilaterally and Yes other soft tissue findings (SI tenderness on the left) PELVIS: Yes buttocks normal SACRUM: no ecchymosis COCCYX: no swelling Extremity: COMMON NORMALS: normal to inspection, full ROM and capillary refill normal GENERAL: Yes normal exam except as noted RIGHT LOWER EXTREMITY: Yes hip joint Right hip: Yes inspection (normal), Yes palpation (pain posterior to touch), Yes ROM (limited flexion/extension due to pain) and Yes neurovascular exam (distally intact) and Yes knee joint Right knee: Yes inspection (normal), Yes palpation (pain superior, anterior, negative ), Yes ROM (pain with flexion/extension) and Yes neurovascular exam (distally intact) Neuro: COMMON NORMALS: patient oriented x3 and no focal motor deficits SENSORIUM/ORIENTATION: Yes alert SPEECH: speech normal MOTOR EXAM: Abnormal motor strength present (4/5 BLE) Psych: COMMON NORMALS: mental status grossly normal, Normal thought process present and cooperative ACTIVITY/MOTOR BEHAVIOR: Yes appropriate eye contact THOUGHT PROCESS: Normal thought process present Skin: COMMON NORMALS: no rashes or lesions noted and turgor normal GENERAL SKIN EXAM: no rashes or lesions noted and turgor normal Course Vital Signs: Vital signs: Vital Signs Temperature 97.7 F 08/21/20 14:56 Pulse Rate 78 08/21/20 14:56 Respiratory Rate 18 08/21/20 14:56 Blood Pressure 123/83 08/21/20 14:56 Pulse Oximetry 99 08/21/20 14:56 MDM - Extremity (Nontraumatic) Imaging Data^: Xray Ortho: Radiologist's impression: [address] [address] XRay Report Signed Patient: Sj Land #: [id number] : 1965Acct#:[id number] Age/Sex: 54 / FADM Date: 08/21/20 Loc: ERRoom/Bed: Attending Dr: Ordering Provider/Ordering MD: Kim Mijares Date of Service: 08/21/20 Procedure(s): XR knee RT 3V* [id number] Accession Number(s): [id number] Report Number: [id number] PROCEDURE INFORMATION: Exam: XR Right Knee Exam date and time: 08/21/2020 3:41 PM Age: 54 years old Clinical indication: Pain and injury or trauma; Fall; Blunt trauma; Knee; Right; Additional info: Knee pain S/P fall TECHNIQUE: Imaging protocol: XR Right knee. Views: 3 views. COMPARISON: CR Knee 3 views, RIGHT* [id number] 07/01/2015 4:10 AM FINDINGS: Bones/joints: Negative for acute abnormality. Soft tissues: Unremarkable XR/XR knee RT 3V* [id number] IMPRESSION: No acute findings. Dictated By:Luis F Wasserman Signed By:Chantal Wasserman Date/Time:08/21/201623 DD/ 22 Other Xray: Radiologist's impression: [address] [address] XRay Report Signed Patient: Sj Land Unit #: [id number] : 1965 Age/Sex: 54 / F ADM Date: 08/21/20 Loc: ER Room/Bed: Attending Dr: Ordering Provider/Ordering MD: Kim Mijares Date of Service: 08/21/20 Procedure(s): XR lumbar spine 2-3V* [id number] Accession Number(s): [id number] Report Number: [id number] PROCEDURE INFORMATION: Exam: XR Lumbosacral Spine, 2 or 3 Views Exam date and time: 08/21/2020 3:41 PM Age: 54 years old Clinical indication: Pain and injury or trauma; Fall; Blunt trauma (contusions or hematomas); Low back pain; Additional info: Lbp S/P fall TECHNIQUE: Imaging protocol: XR of the lumbosacral spine, 2 or 3 views. COMPARISON: MR lumbar spine wo con* [id number] 01/23/2020 8:51 AM FINDINGS: Bones/joints: There is anterior spinal fusion with metallic surgical hardware anterior to the L5-S1 level with intervertebral fusion. The bones show anatomic alignment No acute fracture. Otherwise negative examination. Soft tissues: Unremarkable. XR/XR lumbar spine 2-3V* [id number] IMPRESSION: 1. No acute findings. 2. Anterior fusion is seen at the L5-S1 level metallic plate and screws in place. Dictated By: Luis F Wasserman Signed By: Luis F Wasserman Signed Date/Time: 08/21/20 162 DD/ 21 Other Imaging: Radiologist's impression: [address] [address] XRay Report Signed Patient: Sj Land #: [id number] : 1965Acct#:[id number] Age/Sex: 54 / FADM Date: 08/21/20 Loc: ERRoom/Bed: Attending Dr: Ordering Provider/Ordering MD: Kim Mijares Date of Service: 08/21/20 Procedure(s): XR pelvis 1-2V* [id number] Accession Number(s): [id number] Report Number: [id number] WS: [id number] Exam: XR pelvis 1-2V* [id number] Date/Time of Exam: 08/21/2020 4:29 PM Reason For Exam: left SI pain; rt posterior hip pain No acute pelvic fracture. 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 Plate and screw fixation noted at the L5-S1 level. Signs of previous pelvic surgery. No sign of osseous destruction. XR/XR pelvis 1-2V* [id number] IMPRESSION: 1. 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 Osteopenia. 2. No sign of fracture or bone destruction. Dictated By:Zac Patel DO Signed By:Farzana Sykes Date/Time:08/21/201643 DD/ 41 Discharge Plan Discharge Patient Disposition: Home Clinical Impression: Fall against object Knee pain, right Qualifiers: Chronicity: acute Qualified Code(s): M25.561 - Pain in right knee Sciatic pain Qualifiers: Laterality: left Qualified Code(s): M54.32 - Sciatica, left side Condition: Stable Prescriptions: No Action alendronate 70 mg tablet See Rx Instructions .ROUTE .COMPLEX RF: 0 pregabalin [Lyrica] 150 mg capsule 150 mg PO BID RF: 0 tramadol 50 mg tablet 50 - 100 mg PO TID PRN (Reason: PAIN) RF: 0 tizanidine 2 mg capsule 2 - 4 mg PO TID PRN (Reason: Muscle Pain) RF: 0 lidocaine [Lidoderm] 5 % adhesive patch,medicated See Rx Instructions .ROUTE .COMPLEX RF: 0 (DME) CUSTOM FUNCTIONAL ORTHOTICS See Rx Instructions .Route .MEDSUPPLY Qty: 1 RF: 0 sertraline 100 mg tablet 100 mg PO DAILY RF: 0 (DME) Mezzo ankle brace See Rx Instructions .Route .MEDSUPPLY Qty: 1 RF: 0 multivitamin [Multiple Vitamins] Tablet 1 tab PO DAILY RF: 0 albuterol sulfate 2.5 mg /3 mL (0.083 %) Solution For Nebulization 2.5 mg INHALATION Q4H PRN (Reason: Shortness Of Breath) RF: 0 metoprolol tartrate 50 mg Tablet 50 mg PO BID RF: 0 oxycodone-acetaminophen 7.5-325 mg Tablet 1 tab PO QID PRN (Reason: Pain) RF: 0 albuterol sulfate [Ventolin HFA] 90 mcg/actuation Hfa Aerosol Inhaler 2 puff INHALATION Q4H PRN (Reason: Shortness Of Breath) RF: 0 vkvzlavgoh-lmqmqxlyslauf-kyuc [Fioricet] 50-300-40 mg capsule 1 cap PO Q4H PRN (Reason: headache) Qty: 20 RF: 0 alprazolam 0.25 mg tablet 0.25 mg PO BID PRN (Reason: Anxiety) RF: 0 promethazine 25 mg Tablet 25 mg PO Q6H PRN (Reason: Nausea) RF: 0 nfrwynkdug-drkatilqlsqwg-eizk 50-300-40 mg Capsule 1 - 2 cap PO Q4H PRN (Reason: Headache) RF: 0 potassium chloride 20 mEq Tablet Extended Release 20 meq PO DAILY RF: 0 Discharge Orders: Discharge Order (Routine); Ordered 08/21/20 Ordered By: Kim Mijares Referrals: Paul Mike, DO [Primary Care Provider] - Discharge Diet: Usual diet Discharge Activity: Resume usual activity Patient Instructions: Low Back Strain (ED), Knee Pain (ED), Fall Prevention (ED) Activity Restrictions/Additional Instructions: Continue follow-up with your primary care provider in regards to low back pain and leg weakness Continue current medications for pain Return to the emergency department if you develop inability to feel your legs, urinary or bowel incontinence, or other concerning symptoms. May apply cool compresses/alternate with warm moist heat to the lower back as needed for pain May apply Salonpas as needed to the back as needed for pain, available [id number], use as directed Discharge Date/Time: 08/21/20 16:54 Coding Level of Care Code ED [employer] Set Up Technician for Chg Fwd Exam Comprehensive
--- NOTE | 2020-08-21 15:48 | XR_ITS ---
WS: [id number] Exam: XR pelvis 1-2V* [id number] Date/Time of Exam: 08/21/2020 4:29 PM Reason For Exam: left SI pain; rt posterior hip pain No acute pelvic fracture. 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 Plate and screw fixation noted at the L 5-S1 level. Signs of previous pelvic surgery. No sign of osseous destruction. XR/XR pelvis 1-2V* [id number] IMPRESSION: 1. 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 Osteopenia. 2. No sign of fracture or bone destruction.
== END 2020-08-21 16:54 | disposition home or self-care (01) ==
PROVIDERS: Emergency Provider Nurse Practitioner Family; PCP Electrodiagnostic Medicine
DX: M25.561 Pain in right knee (principal); M54.32 Sciatica, left side; I10 Essential (primary) hypertension; F17.210 Nicotine dependence, cigarettes, uncomplicated
CPT/HCPCS: 12345; 72100; 72170; 73562; 99281; 99283

== ENCOUNTER 2020-08-30 18:06 | Inpatient (IN) | payer MEDICARE, OTHER, SELFPAY ==
[2020-08-30] VITALS (7 sets, daily range): BP systolic 148–185; BP diastolic 82–113; PULSE 84–104; RESP 18; TEMP 36.8; O2SAT 93–100; BMI 28.1
--- NOTE | 2020-08-30 18:49 | PC.NURSE ---
PT HAS BRUISING TO HER CHIN, RIGHT EAR, AND HER BACK. ALSO C/O PAIN TO HER KNEES. PAIN IS 8/10.
--- NOTE | 2020-08-30 19:07 | CTR_ITS ---
PROCEDURE INFORMATION: Exam: CT Head Without Contrast Exam date and time: 08/30/2020 7:18 PM Age: 54 years old Clinical indication: Syncope and collapse; Patient HX: Multiple syncope episodes w associated falls; Additional info: Fall TECHNIQUE: Imaging protocol: Computed tomography of the head without contrast. Radiation optimization: All CT scans at this facility use at least one of these dose optimization techniques: automated exposure control; mA and/or kV adjustment per patient size (includes targeted exams where dose is matched to clinical indication); or iterative reconstruction. COMPARISON: CT head wo con* [id number] 01/17/2020 4:01 PM RADIATION DOSE METRICS: Total DLP (mGy-cm): 709.55 FINDINGS: Brain: Mild parenchymal volume loss noted. No significant white matter disease demonstrated. No intracranial hemorrhage noted. No parenchymal edema identified. Cerebral ventricles: The ventricles are proportional to the sulci. No hydrocephalus is noted. Bones/joints: No fracture or other acute osseous abnormality. Paranasal sinuses: The paranasal sinuses, as demonstrated, appear clear. Mastoid air cells: The mastoid air cells are clear bilaterally. Soft tissues: The soft tissues appear unremarkable. CT/CT head wo con* [id number] IMPRESSION: 1. No acute intracranial abnormality demonstrated. 2. There is no interval change from the prior examination. Radiation Dose CTDIVOL = (mGy): DLP = 709.55 (mGy-cm)
--- NOTE | 2020-08-30 19:07 | CTR_ITS ---
PROCEDURE INFORMATION: Exam: CT Maxillofacial Without Contrast Exam date and time: 08/30/2020 7:18 PM Age: 54 years old Clinical indication: Injury or trauma; Blunt trauma (contusions or hematomas); Patient HX: Multiple syncope episodes w associated falls hematoma on chin and lac near R ear; Additional info: Fall TECHNIQUE: Imaging protocol: Computed tomography images of the face without contrast. Radiation optimization: All CT scans at this facility use at least one of these dose optimization techniques: automated exposure control; mA and/or kV adjustment per patient size (includes targeted exams where dose is matched to clinical indication); or iterative reconstruction. COMPARISON: No relevant prior studies available. RADIATION DOSE METRICS: Total DLP (mGy-cm): 734.23 FINDINGS: Orbital cavity: The orbits are intact. Bones/joints: The nasal bones appear intact. The zygomatic arches are intact. The mandible is intact. No fracture of the pterygoid plates. Paranasal sinuses: No air-fluid levels are seen in the paranasal sinuses. Soft tissues: No soft tissue hematoma appreciated. CT/CT facial bones wo con* [id number] IMPRESSION: No acute fracture demonstrated. Radiation Dose CTDIVOL = (mGy): DLP = 734.23 (mGy-cm)
--- NOTE | 2020-08-30 19:07 | XRR_ITS ---
PROCEDURE INFORMATION: Exam: XR Chest, 1 View Exam date and time: 08/30/2020 7:59 PM Age: 54 years old Clinical indication: Cough; Additional info: Syncope TECHNIQUE: Imaging protocol: XR of the chest Views: 1 view. COMPARISON: CR XR chest 1V portable [id number] 08/06/2020 11:46 PM FINDINGS: Lungs: No consolidation. Pleural space: No pleural effusion. No pneumothorax. Heart/Mediastinum: No cardiomegaly. Bones/joints: Unremarkable. XR/XR chest 1V portable [id number] IMPRESSION: 1. No acute cardiopulmonary disease demonstrated. 2. There is no interval change from the prior examination.
--- NOTE | 2020-08-30 19:07 | CTR_ITS ---
PROCEDURE INFORMATION: Exam: CT Cervical Spine Without Contrast Exam date and time: 08/30/2020 7:18 PM Age: 54 years old Clinical indication: Injury or trauma; Blunt trauma; Patient HX: Multiple syncope episodes w associated falls; Additional info: Fall TECHNIQUE: Imaging protocol: Computed tomography images of the cervical spine without contrast. Radiation optimization: All CT scans at this facility use at least one of these dose optimization techniques: automated exposure control; mA and/or kV adjustment per patient size (includes targeted exams where dose is matched to clinical indication); or iterative reconstruction. COMPARISON: CT cervical spine w con [id number] 03/07/2020 10:59 AM RADIATION DOSE METRICS: Total DLP (mGy-cm): 445.98 FINDINGS: Bones/joints: Vertebral body heights are preserved. No compression fractures are noted. Vertebral alignment is physiologic. Discs/Spinal canal/Neural foramina: Disc heights are preserved. No significant intervertebral disc narrowing. No significant spinal stenosis demonstrated. No severe neural foraminal stenosis at any level. Soft tissues: The soft tissues appear unremarkable. Thyroid: Right thyroid nodules measuring up to 9 mm in diameter. Lungs: Lung apices are not included on the study. CT/CT cervical spin wo con* [id number] IMPRESSION: 1. No acute abnormality demonstrated. 2. There is no interval change from the prior examination. 3. Right thyroid nodules measuring up to 9 mm in diameter. This is unchanged from 03/07/2020. No follow-up is required. COMMENTS: Consistent with the [place] [place] [employer]'s Incidental Findings Committee white paper (J Am Laron Radiol 2015): In patients aged 35 years and older with an incidental thyroid nodule equal to or greater than 1.[address], MRI or extrathyroidal US, further evaluation with dedicated thyroid US is recommended for patients with normal life expectancy and without comorbidities. For smaller nodules without suspicious features, no further evaluation or follow up is recommended. Radiation Dose CTDIVOL = (mGy): DLP = 445.98 (mGy-cm)
--- NOTE | 2020-08-30 19:08 | ECG_ITS ---
[facility] Test Date: 2020-08-30 Pat Name: Sj Land Department: Room: Gender: Female Manager Garage: : 1965 Requested By: Juan Cedillo Order Number: [id number] Rapp MD: Negar Figueredo M.D. Measurements Intervals [place] Rate: 92 P: 58 AR: 104 QRS: 48 QRSD: 86 T: 13 QT: 338 QTc: 419 Interpretive Statements SINUS RHYTHM WITH SHORT AR INTERVAL NONSPECIFIC T-WAVE ABNORMALITY Compared to ECG 08/06/2020 23:37:14 Short AR interval now present T-wave abnormality now present Intraventricular conduction delay no longer present Electronically Signed On 08-31-2020 9:22:34 AUTOMOBILE CLUB INFORMATION CLERK by Negar Figueredo M.D. [id number]
[2020-08-30 19:30] LABS: Add Urine Microscopic? NO
[2020-08-30 19:49] LABS: Urine Appearance Clear (CLEAR); Urine Color Yellow (Yellow)
[2020-08-30 19:50] LABS: Bilirubin Urine Neg (Negative); Blood Urine Neg (Negative); Glucose Urine UA Norm (Normal); Ketones Urine Negative (Negative); Leukocyte Esterase Urine Negative (Negative); Nitrate Urine Negative (Negative); Protein Urine Neg (Negative); Specific Gravity, Urine 1.005 (1.005-1.030); Urobilinogen Urine Norm (Negative); pH Urine 6 (5-7)
--- NOTE | 2020-08-30 20:38 | PC.NURSE ---
Attempt to obatin redraw lab unsuccessful
[2020-08-30] MEDS: sodium chloride 0.9% 1,000 ML 999 ML IV (20:45)
--- NOTE | 2020-08-30 20:47 | ED_ITS ---
HPI - Fall General: Chief Complaint: Fall Stated Complaint: BP LOW 60/40 / FALLEN SEVERAL TIMES Time Seen by Provider: 08/30/20 18:38 History of Present Illness: HPI Narrative: 54-year-old female presenting with multiple syncopal episodes over the past few months, worsening over the past week or so. She reported that her blood pressure may be getting low, but she has been hypertensive here. She reports no significant illness. No diarrhea, vomiting, cough. She has no chest pain. Her notes that prior to these events, she begins to shake, even while standing. She remembers doing this. And she collapses for seconds at a time. There was one instance when she passed out and was out for a few minutes. She has struck her head a couple of times. She did not pass out today, but had a near syncopal episode while outside looking at a camper with her son. Associated symptoms-after fall: Denies abdominal pain, chest pain, confusion, headache(s), hematuria, neck pain or vertigo Review of Systems Const: Denies: fever(s) or chills Eyes: Denies: change in vision ENMT: Denies: swelling of lips/tongue or sinus pain Card: Denies: chest pain, palpitations or irregular heart rhythm Resp: Denies: dyspnea, productive cough, non-productive cough or wheezing GI: Denies: abdominal pain, nausea or vomiting : Denies: dysuria or hematuria Musc: Denies: neck pain or back pain Skin/Breast: Denies: rash or erythema Neuro: Reports: dizziness; Denies: headache(s), vertigo, confusion or seizure-like activity Psych: Denies: anxiety PFSH ED PFSH: Medical History Cervical disc disorder with myelopathy of mid-cervical region Chronic back pain HTN (hypertension) HZV (herpes zoster virus) post herpetic neuralgia Smoker Surgical History History of lumbar spinal fusion (~2016) Dr. Elvin Leija, anterior L5-S1 fusion/fixation. History of wrist fracture R wrist fracture repair Hx of gastric bypass Hx of hysterectomy / BSO Status post cholecystectomy Family History Father Cancer Family history of myocardial infarction Mother Lung disease Dementia Social History (Reviewed 08/12/20 @ 13:26 by MATILDE Hughes Smoking and tobacco status: current every day smoker cigarettes Packs smoked per day: 0.75 Years cigarettes smoked: 35 [ Other cigarette details: Used to smoke more heavily ] Alcohol intake: never Household members: spouse Marital status: Current occupational status: disabled History of recent travel: No Physical Exam Const: GENERAL APPEARANCE: well developed ORIENTATION/CONSCIOUSNESS: Yes oriented to person, Yes oriented to place and Yes oriented to time HENMT: COMMON NORMALS: normocephalic, external ears normal and Normal external nose present HEAD & SCALP: normocephalic FACE & SINUS: other (Ecchymosis to the right mandible area, small amount of swelling to right temporal area) NOSE: Normal external nose present and No nasal discharge present EXTERNAL EAR: Yes external ears normal MOUTH: tongue normal Eye: COMMON NORMALS: Equal, round and reactive pupils present, EOMs intact bilaterally and conjunctivae normal EYELID: eyelids normal CONJUNCTIVA: Yes conjunctivae normal PUPIL: Yes Equal, round and reactive pupils present Neck/C-Spine: GENERAL: No tracheal deviation Chest: COMMONS NORMALS: normal inspection of the chest CHEST: No tenderness Resp: COMMON NORMALS: clear to auscultation bilaterally EFFORT & INSPECTION: No tachypneic, No respiratory distress, No retractions, No uses accessory muscles and No tracheal deviation AUSCULTATION: clear to auscultation bilaterally, no rhonchi, no wheezes and lung sounds not diminished Cardio: COMMON NORMALS: regular rate and regular rhythm RATE: regular rate RHYTHM: regular rhythm HEART SOUNDS: no murmurs PERIPHERAL PULSES: radial pulses present GI: INSPECTION: No abdominal distension AUSCULTATION: No Hyperactive bowel sounds present and No Hypoactive bowel sounds present PALPATION: No Guarding due to palpation present (GI) and No Rigid due to palpation PERCUSSION: no dullness to percussion and no tympanic to percussion Neuro: SENSORIUM/ORIENTATION: Yes oriented to person, Yes oriented to place an d Yes oriented to time Psych: COMMON NORMALS: mental status grossly normal Course Vital Signs: Vital signs: Vital Signs Temperature 98.2 F 08/30/20 18:07 Pulse Rate 88 08/30/20 23:00 Respiratory Rate 18 08/30/20 23:08 Blood Pressure 174/82 08/30/20 23:00 Pulse Oximetry 93 08/30/20 23:08 MDM - Fall [facility] Narrative: Medical decision making narrative: 54-year-old female with a history of presyncope and syncope episodes, increasing in frequency. She denies any chest pain or shortness of breath. She denies fever or acute illness. Her heart rates about 100, but she has missed metoprolol this evening. She has been hypertensive here. She has missed pain medication dosages as well and is having an exacerbation of her chronic pain. Her EKG shows a normal sinus rhythm with no ST changes and a normal axis with a rate of 90s. Her troponin was slightly elevated, but did not elevate further significantly at 2 hours. Her D-dimer was high, chest x-ray negative. CTA was ordered of the chest to rule out PE, especially due to mild tachycardia with a history of syncope. Head CT was negative. If CTA of the chest is negative as well, she will be allowed home. She was offered observation admission, as she has had multiple syncopal episodes, but wishes to go home. Lab Data: Labs: Lab Results 08/30/20 08/30/20 08/30/20 Range/Units 18:14 19:40 19:40 WBC Cancelled Corrected WBC Cancelled RBC Cancelled Hgb Cancelled Hct Cancelled MCV Cancelled MCH Cancelled MCHC Cancelled RDW Cancelled Plt Count Cancelled MPV Cancelled Gran % Cancelled Neut % (Auto) Cancelled Lymph % (Auto) Cancelled [place] % (Auto) Cancelled Eos % (Auto) Cancelled Baso % (Auto) Cancelled Neut # (Auto) Cancelled Lymph # (Auto) Cancelled [place] # (Auto) Cancelled Eos # (Auto) Cancelled Baso # (Auto) Cancelled Absolute Gran (aut o) Cancelled Nucleated RBC % (a uto) Cancelled Nucleated RBCs # Cancelled D-Dimer (0-0.59) ug/mIFE U Sodium Cancelled Potassium Cancelled Chloride Cancelled Carbon Dioxide Cancelled Anion Gap Cancelled BUN Cancelled Creatinine Cancelled GFR Calculation Cancelled Glucose Cancelled Calculated Osmolal ity Cancelled Calcium Cancelled Total Bilirubin Cancelled AST Cancelled ALT Cancelled Alkaline Phosphata se Cancelled Creatine Kinase Cancelled Troponin T Baselin e Troponin T 120 [place] (0-10) ng/L Delta Troponin T (0-10) ABS# Total Protein Cancelled Albumin Cancelled Globulin Cancelled Urine Color Yellow (Yellow) Urine Appearance Clear (CLEAR) Urine pH 6 (5-7) Ur Specific Gravit y 1.005 (1.005-1.030) Urine Protein Neg (Negative) Urine Glucose (UA) Norm (Normal) Urine Ketones Negative (Negative) Urine Blood Neg (Negative) Urine Nitrate Negative (Negative) Urine Bilirubin Neg (Negative) Urine Urobilinogen Norm (Negative) mg/dL Ur Leukocyte Caitie ase Negative (Negative) 08/30/20 08/30/20 08/30/20 Range/Units 19:40 19:40 21:07 WBC 4.4 Corrected WBC RBC 4.03 L Hgb 10.6 L Hct 35.1 L MCV 87.1 MCH 26.3 L MCHC 30.2 RDW 16.7 H Plt Count 352 MPV 10.2 Gran % Neut % (Auto) 52.0 Lymph % (Auto) 37.3 [place] % (Auto) 7.3 Eos % (Auto) 2.7 Baso % (Auto) 0.7 Neut # (Auto) 2.29 Lymph # (Auto) 1.6 [place] # (Auto) 0.3 Eos # (Auto) 0.1 Baso # (Auto) 0.0 Absolute Gran (aut o) Nucleated RBC % (a uto) 0 Nucleated RBCs # 0.0 D-Dimer 3.21 H (0-0.59) ug/mIFE U Sodium Potassium Chloride Carbon Dioxide Anion Gap BUN Creatinine GFR Calculation Glucose Calculated Osmolal ity Calcium Total Bilirubin AST ALT Alkaline Phosphata se Creatine Kinase Troponin T Baselin e Cancelled Troponin T 120 [place] (0-10) ng/L Delta Troponin T (0-10) ABS# Total Protein Albumin Globulin Urine Color (Yellow) Urine Appearance (CLEAR) Urine pH (5-7) Ur Specific Gravit y (1.005-1.030) Urine Protein (Negative) Urine Glucose (UA) (Normal) Urine Ketones (Negative) Urine Blood (Negative) Urine Nitrate (Negative) Urine Bilirubin (Negative) Urine Urobilinogen (Negative) mg/dL Ur Leukocyte Caitie ase (Negative) 08/30/20 08/30/20 08/30/20 Range/Units 21:07 21:07 22:55 WBC Corrected WBC RBC Hgb Hct MCV MCH MCHC RDW Plt Count MPV Gran % Neut % (Auto) Lymph % (Auto) [place] % (Auto) Eos % (Auto) Baso % (Auto) Neut # (Auto) Lymph # (Auto) [place] # (Auto) Eos # (Auto) Baso # (Auto) Absolute Gran (aut o) Nucleated RBC % (a uto) Nucleated RBCs # D-Dimer (0-0.59) ug/mIFE U Sodium 141 Potassium 3.6 Chloride 104 Carbon Dioxide 26 Anion Gap 14.6 BUN 3 L Creatinine 0.8 GFR Calculation 74.2 L Glucose 84 Calculated Osmolal ity 288 Calcium 9.0 Total Bilirubin 0.2 AST 53 H ALT 31 Alkaline Phosphata se 106 H Creatine Kinase 89 Troponin T Baselin e 14 H Troponin T 120 [place] 15.66 H (0-10) ng/L Delta Troponin T 1.66 (0-10) ABS# Total Protein 6.2 L Albumin 3.7 Globulin 2.5 Urine Color (Yellow) Urine Appearance (CLEAR) Urine pH (5-7) Ur Specific Gravit y (1.005-1.030) Urine Protein (Negative) Urine Glucose (UA) (Normal) Urine Ketones (Negative) Urine Blood (Negative) Urine Nitrate (Negative) Urine Bilirubin (Negative) Urine Urobilinogen (Negative) mg/dL Ur Leukocyte Caitie ase (Negative) Discharge Plan Discharge Patient Disposition: Home Clinical Impression: Syncope Qualifiers: Syncope type: unspecified Qualified Code(s): R55 - Syncope and collapse Condition: Stable Prescriptions: No Action alendronate 70 mg tablet See Rx Instructions .ROUTE .COMPLEX RF: 0 pregabalin [Lyrica] 150 mg capsule 150 mg PO BID RF: 0 tramadol 50 mg tablet 50 - 100 mg PO TID PRN (Reason: PAIN) RF: 0 tizanidine 2 mg capsule 2 - 4 mg PO TID PRN (Reason: Muscle Pain) RF: 0 lidocaine [Lidoderm] 5 % adhesive patch,medicated See Rx Instructions .ROUTE .COMPLEX RF: 0 (DME) [employer] See Rx Instructions .Route .MEDSUPPLY Qty: 1 RF: 0 sertraline 100 mg tablet 100 mg PO DAILY RF: 0 (DME) Mezzo ankle brace See Rx Instructions .Route .MEDSUPPLY Qty: 1 RF: 0 multivitamin [Multiple Vitamins] Tablet 1 tab PO DAILY RF: 0 albuterol sulfate 2.5 mg /3 mL (0.083 %) Solution For Nebulization 2.5 mg INHALATION Q4H PRN (Reason: Shortness Of Breath) RF: 0 metoprolol tartrate 50 mg Tablet 50 mg PO BID RF: 0 oxycodone-acetaminophen 7.5-325 mg Tablet 1 tab PO QID PRN (Reason: Pain) RF: 0 albuterol sulfate [Ventolin HFA] 90 mcg/actuation Hfa Aerosol Inhaler 2 puff INHALATION Q4H PRN (Reason: Shortness Of Breath) RF: 0 dzqvhoogmk-jtrnrdgkjvzjd-fjpr [Fioricet] 50-300-40 mg capsule 1 cap PO Q4H PRN (Reason: headache) Qty: 20 RF: 0 alprazolam 0.25 mg tablet 0.25 mg PO BID PRN (Reason: Anxiety) RF: 0 promethazine 25 mg Tablet 25 mg PO Q6H PRN (Reason: Nausea) RF: 0 fobfusjdbu-npabrvbgvvpxf-nmlk 50-300-40 mg Capsule 1 - 2 cap PO Q4H PRN (Reason: Headache) RF: 0 potassium chloride 20 mEq Tablet Extended Release 20 meq PO DAILY RF: 0 Discharge Orders: Discharge Order (Routine); Ordered 08/31/20 Ordered By: Juan Masters Referrals: Paul Mike DO [Primary Care Provider] - 1-3 days Discharge Diet: Usual diet Discharge Activity: Increase activity as tolerated Patient Instructions: Syncope (ED) Activity Restrictions/Additional Instructions: Return immediately to the ER for continued or worsening episodes of syncope, any chest pain, shortness of breath, fever, mental status changes, weakness, or other concerning symptoms. Continue to check your blood pressure twice daily. Your doctor may want to order further outpatient tests, such as a heart monitor. Coding Level of Care Code ED Entrepreneur for Chg Fwd Exam Comprehensive
--- NOTE | 2020-08-30 21:08 | ECG_ITS ---
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 Measurements Intervals [place] Rate: 99 P: 73 TN: 126 QRS: 62 QRSD: 92 T: 52 QT: 345 QTc: 445 Interpretive Statements SINUS RHYTHM Compared to ECG 08/30/2020 19:24:32 Short [place] interval no longer present T-wave abnormality no longer present Electronically Signed On 08-31-2020 9:28:34 SURVEY COORDINATOR by Negar Figueredo M.D. [email or web address] [email or web address] [email or web address]/store/[id number]
[2020-08-30 21:20] LABS: Basophils % 0.7 %; Eosinophils # 0.1 10^3/uL (0.0-0.8); Eosinophils % 2.7 %; Hematocrit 35.1 % (37.0-47.0); Hemoglobin 10.6 g/dL (11.5-15.3); Lymphocytes # 1.6 10^3/uL (0.8-4.8); Lymphocytes % 37.3 %; Mean Corpuscular HGB Conc 30.2 g/dL (30.0-36.0); Mean Corpuscular Hemoglobin 26.3 pg (28.0-34.0); Mean Corpuscular Volume 87.1 fL (81-99); Mean Platelet Volume 10.2 fL (7.4-10.4); Monocytes # 0.3 10^3/uL (0.2-0.9); Monocytes % 7.3 %; Neutrophils # 2.29 10^3/uL (1.8-7.7); Nucleated Red Blood Cells % 0 %; Platelet Count 352 10^3/cmm (130-400); Red Blood Count 4.03 10^6/uL (4.1-5.3); Red Cell Distribution Width 16.7 % (12.1-15.1); White Blood Count 4.4 10^3/uL (4.0-10.0)
[2020-08-30 21:34] LABS: Alanine Aminotransferase 31 U/L (0-33); Albumin Level 3.7 g/dL (3.5-5.2); Alkaline Phosphatase 106 IU/L (35-105); Aspartate Amino Transferase 53 U/L (0-32); Blood Urea Nitrogen 3 mg/dL (6-20); Carbon Dioxide 26 mmol/L (22-29); Chloride 104 mmol/L (98-107); Creatine Phosphokinase 89 U/L (26-192); Globulin 2.5 g/dL (1.3-4.6); Glomerular Filtration Rate 74.2 mL/min (90-130); Glucose 84 mg/dL (65-115); Osmolality Calculated 288 mOsm/kg (285-295); Sodium 141 mmol/L (136-145); Total Bilirubin 0.2 mg/dL (0.15-1.2); Total Protein 6.2 g/dL (6.6-8.7)
[2020-08-30 21:36] LABS: Troponin(5th) Baseline 14 ng/L (0-10)
[2020-08-30 21:37] LABS: Anion Gap 14.6 (5-19); Potassium 3.6 mmol/L (3.5-5.1)
[2020-08-30] MEDS: metoprolol tartrate 1 mg/1 mL SDV 5 mL 2.5 MG IV (22:34)
[2020-08-30] MEDS: morphine 4 mg/mL SDV 1 mL IVP (23:08)
[2020-08-30] MEDS: ondansetron 2 mg/ML SDV 2 mL 4 MG IVP (23:09)
[2020-08-30 23:11] LABS: D Dimer 3.21 ug/mIFEU (0-0.59)
--- NOTE | 2020-08-30 23:23 | CTR_ITS ---
PROCEDURE INFORMATION: Exam: CT Angiography Chest With Contrast Exam date and time: 08/30/2020 11:33 PM Age: 54 years old Clinical indication: Abnormal findings; Abnormal diagnostic tests; Elevated d-dimer; Patient HX: Elev d-dimer - multiple syncope episodes TECHNIQUE: Imaging protocol: Computed tomographic angiography of the chest with intravenous contrast. 3D rendering (Not supervised by radiologist): MIP and/or 3D reconstructed images were created by the technologist. Radiation optimization: All CT scans at this facility use at least one of these dose optimization techniques: automated exposure control; mA and/or kV adjustment per patient size (includes targeted exams where dose is matched to clinical indication); or iterative reconstruction. Contrast material: OMNI 350; Contrast volume: 68 ml; Contrast route: INTRAVENOUS (IV); COMPARISON: CR (CHEST, ) 08/30/2020 7:56 PM RADIATION DOSE METRICS: Total DLP (mGy-cm): 551.39 FINDINGS: Pulmonary arteries: Small filling defects demonstrated in a peripheral branch of the right lower lobe pulmonary artery, series 2, image 314. Aorta: No aortic aneurysm. No aortic dissection. Lungs: No consolidative pulmonary infiltrates are noted. Calcified granuloma left upper lobe measuring 5 mm. Pleural space: No pleural effusion or pneumothorax noted. Heart: No cardiomegaly. No pericardial effusion. Lymph nodes: No pathologically enlarged lymph nodes are demonstrated. Calcified left hilar lymph node, consistent with old granulomatous disease. Liver: Decreased hepatic density is noted, consistent with hepatic steatosis. Gallbladder and bile ducts: The gallbladder is surgically absent. Bones/joints: No fracture or other acute osseous abnormality. Degenerative changes of the thoracic spine. Soft tissues: The soft tissues appear unremarkable. Other findings: No additional emboli are noted. CT/CT angio chest PE protcl [id number] IMPRESSION: 1. Small filling defect demonstrated in a peripheral branch of the right lower lobe pulmonary artery, series 2, image 314. This is consistent with an acute pulmonary embolism. No additional emboli are noted. 2. No acute pulmonary infiltrates. Changes of old granulomatous disease are identified. 3. Decreased hepatic density is noted, consistent with hepatic steatosis. Radiation Dose CTDIVOL = (mGy): DLP = 551.39 (mGy-cm)
[2020-08-30 23:31] LABS: Troponin 5 2HR 15.66 ng/L (0-10); Troponin 5 2HR Delta 1.66 ABS# (0-10)
[2020-08-30] MEDS: iohexol 350 mg/mL 100 mL Btl IV (23:59)
[2020-08-31] VITALS (27 sets, daily range): BP systolic 66–189; BP diastolic 40–120; PULSE 18–130; RESP 11–21; TEMP 36.2–37.4; O2SAT 90–97
[2020-08-31] MEDS: HYDROmorphone 1 mg/mL INJ 1 mL IVP (00:08)
--- NOTE | 2020-08-31 01:08 | ECG_ITS ---
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 Measurements Intervals [place] Rate: 90 P: 71 IA: 135 QRS: 68 QRSD: 83 T: 52 QT: 334 QTc: 409 Interpretive Statements SINUS RHYTHM Compared to ECG 08/30/2020 21:31:36 No significant changes Electronically Signed On 08-31-2020 9:27:25 WATER TAXI DRIVER by Negar Figueredo M.D. [id number]
--- NOTE | 2020-08-31 01:35 | PM.HP ---
Providers/Chief Complaint Admitting Physician: Josh Quinteros MD Primary Care Provider: Paul Mike DO Chief Complaint: BP LOW 60/40 / FALLEN SEVERAL TIMES History of Present Illness Sj Land is a 54 year old female with a past medical history of gastric bypass, chronic pain on multiple opiates and neuropathic medications, cervical disc disease, recent hospital discharge for midgut volvulus who presents to [facility] due to frequent falls and syncopal episodes. Patient states that for the last 2 months she has had frequent episodes of falls, trauma associated with it with syncopal episodes. She describes these episodes typically occurring when she is standing up, sometimes can occur when she is sitting down, all of a sudden her knees will feel weak, she denies lightheadedness, denies dizziness, denies vertigo denies tinnitus denies chest pain maybe has episodes of palpitations, no shortness of breath, no flushing, no change of vision, no focal neurologic deficits, maybe some paresthesias in her hands bilaterally, no slurring of her speech, no facial droop, no urinary bowel incontinence, no seizure-like episode. So when her knees cannot feel weak, this is her indication that she is going to pass out, she tries to make it to a chair, sometimes she does not, when she does not she typically will pass out sometimes losing consciousness, sometimes not losing consciousness, no postictal confusion, has had significant trauma to her head at times, trauma to her jaw, or trauma to the right side of her ear. She also describes that sometimes during these episodes she will bang her head, multiple times, on object such as her kitchen counter not purposefully, it is hard to understand exactly what she means by this? Denies this being an anxiety attack, denies feeling down depressed or sad, the emergency room she was found to have a small subsegmental PE, ER physician was concerned about anticoagulating her with her falls, wanted to admit to figure out the etiology of her syncope and falls, and to anticoagulate monitor hemoglobin Review of Systems Const: Denies: fever(s), chills, fatigue or malaise Eyes: Denies: change in vision or blurry vision ENMT: Denies: nasal congestion Card: Reports: syncope; Denies: chest pain, palpitations, irregular heart rhythm or edema Resp: Denies: dyspnea, productive cough, non-productive cough or wheezing GI: Denies: abdominal pain, nausea, vomiting, hematemesis, diarrhea, constipation, hematochezia or melena : Denies: flank pain, dysuria or urinary frequency Musc: Denies: neck pain or back pain Skin/Breast: Denies: rash Neuro: Denies: headache(s), dizziness or vertigo Psych: Denies: anxiety or depression Endo: Denies: polyuria or polydipsia Medications/Allergies Home Medications Medication Instructions Recorded Confirmed Last Taken Type alendronate 70 mg tablet See Rx Instructions .ROUTE .COMPLEX 11/12/19 08/12/20 08/06/20 08:00 History lidocaine 5 % topical patch See Rx Instructions .ROUTE .COMPLEX 11/12/19 08/12/20 07/08/20 History pregabalin 150 mg capsule 150 mg PO BID 11/12/19 08/12/20 08/06/20 08:00 History tizanidine 2 mg capsule 2 - 4 mg PO TID PRN 11/12/19 08/12/20 08/06/20 18:00 History tramadol 50 mg tablet 50 - 100 mg PO TID PRN 11/12/19 08/12/20 08/06/20 15:00 History sertraline 100 mg tablet 100 mg PO DAILY 12/20/19 08/12/20 08/06/20 08:00 History apfrsyiqdg-oxqzjxssegzin-vzuf 1 - 2 cap PO Q4H PRN 01/17/20 08/12/20 08/06/20 12:00 History potassium chloride 20 meq PO DAILY 01/17/20 08/12/20 08/06/20 08:00 History promethazine 25 mg PO Q6H PRN 01/17/20 08/12/20 08/06/20 08:00 History albuterol sulfate 2.5 mg INHALATION Q4H PRN 01/22/20 08/12/20 Unknown History albuterol sulfate [Ventolin HFA] 2 puff INHALATION Q4H PRN 01/22/20 08/12/20 Unknown History pukbwypdny-fnjgwvoiazduq-mhvk 1 cap PO Q4H PRN #20 cap 01/22/20 08/12/20 Unknown Rx [Fioricet] metoprolol tartrate 50 mg PO BID 01/22/20 08/12/20 08/06/20 08:00 History multivitamin [Multiple Vitamins] 1 tab PO DAILY 01/22/20 08/12/20 08/06/20 08:00 History oxycodone-acetaminophen 1 tab PO QID PRN 01/22/20 08/12/20 08/06/20 18:00 History CUSTOM FUNCTIONAL ORTHOTICS #1 ea 05/12/20 08/12/20 Unknown Rx Mezzo ankle brace #1 ea 05/16/20 08/12/20 Unknown Rx alprazolam 0.25 mg PO BID PRN 08/07/20 08/12/20 08/06/20 08:00 History Allergies Allergy/AdvReac Type Severity Reaction Status Date / Time No Known Allergies Allergy Verified 08/12/20 13:25 PFSH Acute PFSH: Medical History Cervical disc disorder with myelopathy of mid-cervical region Chronic back pain HTN (hypertension) HZV (herpes zoster virus) post herpetic neuralgia Smoker Surgical History History of lumbar spinal fusion (~2016) Dr. Elvin Leija, anterior L5-S1 fusion/fixation. History of wrist fracture R wrist fracture repair Hx of gastric bypass Hx of hysterectomy / BSO Status post cholecystectomy Family History Father Cancer Family history of myocardial infarction Mother Lung disease Dementia Social History Smoking and tobacco status: current every day smoker cigarettes Packs smoked per day: 0.75 Years cigarettes smoked: 35 [ Other cigarette details: Used to smoke more heavily ] Alcohol intake: never Household members: spouse Marital status: Current occupational status: disabled History of recent travel: No Vitals/I&O/Wt Last Vital Signs Temp 98.2 F 08/30/20 18:07 Pulse 96 08/31/20 01:00 Resp 18 08/31/20 01:00 BP 189/94 08/31/20 01:00 Pulse Ox 95 08/31/20 01:00 Weight last 48 hrs Weight 72.121 kg Physical Exam Const: COMMON NORMALS: no acute distress and patient oriented x3 GENERAL APPEARANCE: cooperative and comfortable HENMT: COMMON NORMALS: normocephalic HEAD & SCALP: normocephalic Eye: COMMON NORMALS: Equal, round and reactive pupils present and EOMs intact bilaterally GENERAL EYE: appearance normal, both eyes and all related structures PUPIL: Yes Equal, round and reactive pupils present Neck/C-Spine: COMMON NORMALS: full ROM, no lymphadenopathy, no JVD and Thyroid normal THYROID: Thyroid normal Lymph: LYMPHATIC: no lymphadenopathy noted Resp: COMMON NORMALS: normal respiratory effort, No retractions, No use of accessory muscles and clear to auscultation bilaterally AUSCULTATION: clear to auscultation bilaterally Cardio: COMMON NORMALS: no JVD, regular rate, regular rhythm, S1 normal heart sound present, S2 normal heart sound present, No gallops present (Cardio), No clicks present (Cardio) and No murmurs present (Cardio) RATE: regular rate RHYTHM: regular rhythm HEART SOUNDS: S1 normal heart sound present and S2 normal heart sound present GI: COMMON NORMALS: Normal to inspection, nondistended, normoactive bowel sounds present, Soft to palpation, non-tender and No hepatosplenomegaly present PALPATION: Yes Soft to palpation and Yes No hepatosplenomegaly present Extremity: COMMON NORMALS: normal to inspection, full ROM and no pedal edema Neuro: COMMON NORMALS: patient oriented x3, CN's II-XII intact bilaterally, moves all extremities and no focal motor deficits Psych: COMMON NORMALS: mental status grossly normal, Normal thought process present and cooperative THOUGHT PROCESS: Normal thought process present Data : 08/30/20 21:07 08/30/20 21:07 A&P Assessment and plan (1) Syncope: -Syncope, sounds a lot like vasovagal syncope and or drop attacks and/or polypharmacy -We will do carotid ultrasound, cardiac echo -Do orthostatic vitals -Hold metoprolol for now, Norvasc 10 mg daily for hypertension -Neurochecks, seizure precautions -I am concerned as she is on multiple controlled medications, such as oxycodone, alprazolam, Lyrica, tramadol, all could be contributing to her syncope Status: Acute Qualifiers: Syncope type: unspecified Qualified Code(s): R55 - Syncope and collapse (2) Anemia: -Has had a negative EGD colonoscopy -Status post gastric bypass -Had anemia last admission also -Takes iron and B12 at home -Hemoglobin stable at 10.6 -Monitor hemoglobin as she is hard Lovenox Status: Acute (3) Pulmonary embolism: -CT ANGIO OF THE CHEST SHOWS Small filling defect demonstrated in a peripheral branch of the right lower lobe pulmonary artery, series 2, image 314. This is consistent with an acute pulmonary embolism. No additional emboli are noted. -Does not currently require oxygen -Order cardiac echocardiogram -We will start on therapeutic Lovenox -The question is does she require anticoagulation given the small subsegmental PE on the right? -Can consider Eliquis on discharge Status: Acute Additional A&P Information Full code Lovenox for DVT prophylaxis Attestations Medical Necessity Statement*: Patient requires hospitalization outpatient with observation for syncope, anemia, pulmonary emboli Coding Level of Care Code Acute Repeat Chief 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 Diagnoses Syncope R55 Syncope type: unspecified Anemia D64.9 Pulmonary embolism I26.99
--- NOTE | 2020-08-31 01:42 | USR_ITS ---
PROCEDURE INFORMATION: Exam: US Duplex Bilateral Extracranial Arteries Exam date and time: 08/31/2020 1:43 AM Age: 54 years old Clinical indication: Syncope and collapse TECHNIQUE: Imaging protocol: Real-time Duplex ultrasound scan of the bilateral carotid and vertebral arteries combining pimentel scale, color Doppler and spectral waveform analysis. Bilateral exam. COMPARISON: CT head wo con* [id number] 08/30/2020 8:45 PM FINDINGS: Right common carotid artery: There is mild atherosclerotic plaquing in the right carotid bulb. There is less than 50% stenosis. Waveforms are normal. Right internal carotid artery: Unremarkable. No occlusion or stenosis. Waveforms are normal. Right ICA/CCA ratio: Within normal limits. Right external carotid artery: No stenosis in the origin. Right vertebral artery: Unremarkable. Antegrade flow. Left common carotid artery: There is mild atherosclerotic plaquing in the left carotid bulb. There is less than 50% stenosis. Waveforms are normal. Left internal carotid artery: Unremarkable. No occlusion or stenosis. Waveforms are normal. Left ICA/CCA ratio: Within normal limits. Left external carotid artery: No stenosis in the origin. Left vertebral artery: Unremarkable. Antegrade flow. US/CV carotid duplex BI* [id number] IMPRESSION: There is mild atherosclerotic plaquing in the carotid bulbs bilaterally with mild less than 50% stenosis. No other significant stenoses are seen. REFERENCES: SRU CRITERIA. The degree of internal carotid artery stenosis is based on criteria defined by the Society of Radiologists in Ultrasound (SRU). Normal is no stenosis. Mild is less than 50% stenosis. Moderate is 50-69% stenosis. Severe is greater than 69% stenosis to near occlusion. Near occlusion is a markedly narrowed lumen. Total occlusion is no detectable patent lumen.
--- NOTE | 2020-08-31 01:42 | USCV_ITS ---
Sj Land Age: 54 Gender: F : 1965 Exam Date: 08/31/2020 06:53 Ordering Phys: Josh Quinteros MD Technologist: Julieta Abad Exam Location: [facility] [place] Indication: Syncope BP: / HR: 74 Rhythm: Sinus Technical Quality: Suboptimal MEASUREMENTS (Male / Female) Normal Values 2D ECHO LV Diastolic Diameter PLAX 3.3 cm 4.2 - 5.9 / 3.9 - 5.3 cm LV Systolic Diameter PLAX 2.2 cm LV Chamber Size 3.1 cm IVS Diastolic Thickness 1.2 cm 0.6 - 1.0 / 0.6 - 0.9 cm IVS Systolic Thickness 1.6 cm LVPW Diastolic Thickness 0.8 cm 0.6 - 1.0 / 0.6 - 0.9 cm LVPW Systolic Thickness 1.0 cm RV Chamber Size 1.5 cm LVOT Diameter 1.9 cm LV Ejection Fraction 2D Teich 64.3 % LA Diameter 1.3 cm LA Width 2.6 cm LA Height 4.5 cm RA Width 2.1 cm RA Height 4.3 cm Aorta at Sinotubular Diameter 2.5 cm M-MODE LV Diastolic Diameter MM 4.1 cm 4.2 - 5.9 / 3.9 - 5.3 cm LV Systolic Diameter MM 2.5 cm LV Ejection Fraction MM Teich 69.7 % IVS Diastolic Thickness MM 1.5 cm 0.6 - 1.0 / 0.6 - 0.9 cm IVS Systolic Thickness MM 1.3 cm LVPW Diastolic Thickness MM 1.4 cm 0.6 - 1.0 / 0.6 - 0.9 cm LVPW Systolic Thickness MM 1.7 cm RV Diastolic Diameter MM 1.0 cm DOPPLER AV Peak Velocity 135.0 cm/s LVOT Peak Velocity 103.0 cm/s AV Area Cont Eq vti 2.2 cm squared AV Area Cont Eq pk 2.1 cm squared MV Area PHT 3.0 cm squared Mitral E to A Ratio 0.8 MV E' Velocity 37.0 cm/s Mitral E to MV E' Ratio 8.0 Mitral E to LV E' Lateral Ratio 9.0 Mitral E to LV E' Septal Ratio 7.3 TR Peak Velocity 229.5 cm/s TR Peak Gradient 21.1 mmHg TV Peak E Velocity 59.0 cm/s Right Atrial Pressure 15.0 mmHg Pulmonary Artery Systolic Pressu 36.1 mmHg FINDINGS Left Ventricle Normal left ventricular size, systolic function and wall thickness, with no regional wall motion abnormalities. Left ventricular ejection fraction is estimated at 65 %. Normal diastolic function. Right Ventricle Normal right ventricular size and systolic function. Right ventricular systolic pressure 36.1 mmHg. Right Atrium Normal right atrial size. Right atrial presurre estimated at 15 mm Hg. Left Atrium Upper normal left atrial size. Mitral Valve Structurally normal mitral valve. No mitral valve stenosis. Trace mitral valve regurgitation. Aortic Valve Structurally normal trileaflet aortic valve. No aortic valve stenosis. No aortic valve regurgitation. Tricuspid Valve Structurally normal tricuspid valve. Trace tricuspid valve regurgitation. Pulmonic Valve Pulmonic valve not well visualized. Pericardium No pericardial effusion. Aorta Normal size aortic root. CONCLUSIONS 1. Normal left ventricular size, systolic function and wall thickness, with no regional wall motion abnormalities. Left ventricular ejection fraction is estimated at 65 %. Normal diastolic function. 2. Pulmonary artery pressure estimated at 36 mm Hg. 3. Right atrial pressure estimated at 15 mm Hg. 4. No significant valvular abnormality. 5. No prior similar studies to compare. Negar Figueredo MD (Electronically Signed) Final Date: 31 August 2020 19:04 S
[2020-08-31 01:54] LABS: Troponin 5 6HR 15.38 ng/L (0-10); Troponin 5 6HR Delta 1.38 ng/L (0-12)
[2020-08-31] MEDS: enoxaparin 80 mg/0.8 mL Syringe 70 MG SUBCUT ×2 (02:39→13:29)
[2020-08-31] MEDS: dextrose 5%-sod chloride 0.45% 1,000 ML 75 ML IV ×2 (02:39→15:56)
[2020-08-31] MEDS: amlodipine 10 mg Tablet PO (02:39)
[2020-08-31 03:58] LABS: Add Urine Microscopic? NO
[2020-08-31 04:17] LABS: Bilirubin Urine Neg (Negative); Blood Urine Neg (Negative); Glucose Urine UA Norm (Normal); Ketones Urine Negative (Negative); Leukocyte Esterase Urine Negative (Negative); Nitrate Urine Negative (Negative); Protein Urine Neg (Negative); Specific Gravity, Urine 1.005 (1.005-1.030); Urine Appearance Clear (CLEAR); Urine Color Straw (Yellow); Urobilinogen Urine Norm (Negative); pH Urine 5 (5-7)
[2020-08-31] MEDS: sodium chloride 0.9% 1,000 ML 999 ML IV (05:06)
--- NOTE | 2020-08-31 06:01 | PC.NURSE ---
PT ARRIVED TO ROOM 106 VIA WHEELCHAIR. PT TRANSFERRED WITH SBA. BP 197/97, HR 104, RR 15. PT C/O 8/10 GEN BODY PAIN. PT WAS GIVEN PRN TYLENOL. PT WAS ORIENTATED TO ROOM. WILL CONTINUE TO MONITOR.
--- NOTE | 2020-08-31 06:06 | PC.NURSE ---
PT BP DROPPED TO 67/37. DR RAYGOZA WAS NOTIFIED. ORDERS TO DO A 1L BOLUS AND STOP NORVASC.
--- NOTE | 2020-08-31 06:17 | PC.NURSE ---
RECHECKED BP 88/56. WILL CONTINUE TO MONITOR
--- NOTE | 2020-08-31 06:17 | PC.NURSE ---
WAITING FOR BP TO GET MORE STABLE BEFORE DOING OTHOSTATIC BP.
[2020-08-31 06:34] LABS: Hematocrit 27.5 % (37.0-47.0); Hemoglobin 8.3 g/dL (11.5-15.3); Mean Corpuscular HGB Conc 30.2 g/dL (30.0-36.0); Mean Corpuscular Hemoglobin 26.3 pg (28.0-34.0); Mean Corpuscular Volume 87.3 fL (81-99); Mean Platelet Volume 10.2 fL (7.4-10.4); Platelet Count 281 10^3/cmm (130-400); Red Blood Count 3.15 10^6/uL (4.1-5.3); Red Cell Distribution Width 16.9 % (12.1-15.1); White Blood Count 4.1 10^3/uL (4.0-10.0)
[2020-08-31 06:42] LABS: Anion Gap 10.5 (5-19); Blood Urea Nitrogen 3 mg/dL (6-20); Calcium 7.9 mg/dL (8.5-10.5); Carbon Dioxide 28 mmol/L (22-29); Chloride 106 mmol/L (98-107); Glomerular Filtration Rate 103.4 mL/min (90-130); Glucose 133 mg/dL (65-115); Osmolality Calculated 290 mOsm/kg (285-295); Potassium 3.5 mmol/L (3.5-5.1); Sodium 141 mmol/L (136-145)
[2020-08-31 08:04] LABS: Lymphocytes 26 %; Segmented Neutrophils 73 %; Total Cells Counted 100 (0-100)
[2020-08-31 08:06] LABS: Platelet Estimate Normal (Normal)
[2020-08-31 08:07] LABS: Eosinophils 0 %
[2020-08-31] MEDS: sertraline 100 mg Tablet PO (08:10)
[2020-08-31] MEDS: pantoprazole DR 40 mg Tablet PO ×2 (08:10→17:24)
[2020-08-31] MEDS: pregabalin 150 mg Capsule PO ×2 (08:10→17:25)
--- NOTE | 2020-08-31 08:34 | PC.OT ---
Patient was screened, no OT indicated, as she is at her PLOF.
[2020-08-31] MEDS: oxyCODONE-APAP 5-325 mg Tablet 1.5 TAB PO ×2 (12:07→20:50)
--- NOTE | 2020-08-31 12:10 | PC.NURSE ---
patient given PRN percocet per patient request for a pain pill patient has no outward s/s of pain all though reports 9/10 pain in back patient also reports pain is chronic.
[2020-08-31] MEDS: metoprolol tartrate 25 mg Tablet 12.5 MG PO (13:28)
--- NOTE | 2020-08-31 14:28 | PC.NURSE ---
Patient had elevation in HR Sinus tach of 130's with elevated BP 180/113 Dr ashley on unit for assessment new orders noted to give 12.5 metoprolol medication given patient HR no 70's and 60's with a low bp of 87/58 Dr ashley notified no new instructions at this time
--- NOTE | 2020-08-31 14:36 | P.PN_ITS ---
Subjective Subjective: Interval history: Neck labs and H&P reviewed. This evening patient is noted to be tachycardic to 130 with blood pressure up to 163/118.She feels a little flushedDuring the episode of tachycardia. Denies any chest pain or chest discomfort. Due to concern for withdrawal tachycardia after stopping metoprolol, she did get a dose of 12.5 mg metoprolol 1 time which dropped her blood pressure to 85 systolic. Patient denies any dizziness with this acute drop. 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 She did receive metoprolol 12.5 mg p.o. which acutely dropped her blood pressure to 85 systolic. Heart rate also concomitantly dropped to 67/min. Patient feels asymptomatic with this drop denies any dizziness loss of consciou sness. -Pending carotid ultrasound, cardiac echo -Continue to check orthostatic vitals -Hold metoprolol for now, Norvasc 10 mg daily for hypertension -Neurochecks, seizure precautions Status: Acute Qualifiers: Syncope type: unspecified Qualified Code(s): R55 - Syncope and collapse (2) Anemia: -Has had a negative EGD colonoscopy -Status post gastric bypass -Had anemia last admission also -Takes iron and B12 at home -Hemoglobin stable -Monitor hemoglobin as she is on Lovenox Status: Acute (3) Pulmonary embolism: - right lower lobe pulmonary artery. This is consistent with an acute pulmonary embolism. No additional emboli are noted. Check lower extremity venous duplex -Does not currently require oxygen -Pending cardiac echocardiogram Continue full dose Lovenox in the meantime Status: Acute Additional A&P Information Full code Lovenox for DVT prophylaxis Attestations Medical Necessity Statement*: Patient started on low-dose of metoprolol today with acute drop in blood pressure, pending lower extremity Doppler echocardiog niru Coding Level of Care Code Acute Elementary Education Tutor for Chg Fwd Diagnoses Syncope R55 Syncope type: unspecified Anemia D64.9 Pulmonary embolism I26.99
[2020-08-31] MEDS: TRAMadol 50 mg Tablet PO (17:24)
--- NOTE | 2020-08-31 18:25 | PC.NURSE ---
Patient report abdomen pain patient denies nausea also has had no BM this day. Dr Goins notified; no further instructions at this time
--- NOTE | 2020-08-31 23:12 | PC.NURSE ---
ASSUMED CARE OF PT. PT C/O 8 PAIN IN LOWER BACK. PRN OXYCODONE WAS GIVEN. PROVIDED SOME RELIEF. PT BP 182/[address] RAYGOZA WAS NOTIFIED AND WANTS RECHECKED IN 1 HOUR. WILL CONTINUE TO MONITOR.
[2020-09-01] VITALS (26 sets, daily range): BP systolic 58–184; BP diastolic 40–107; PULSE 18–112; RESP 10–29; TEMP 36.6–36.9; O2SAT 90–99
--- NOTE | 2020-09-01 00:32 | PC.NURSE ---
FOLLOW UP WITH DR RAYGOZA. BP 91/59. DR SAID TO MONITOR FOR NOW UNLESS SYMPTOMATIC.
[2020-09-01] MEDS: enoxaparin 80 mg/0.8 mL Syringe 70 MG SUBCUT ×2 (02:31→15:49)
[2020-09-01 05:44] LABS: Basophils % 0.6 %; Eosinophils # 0.1 10^3/uL (0.0-0.8); Eosinophils % 3.5 %; Hematocrit 27.8 % (37.0-47.0); Hemoglobin 8.3 g/dL (11.5-15.3); Lymphocytes # 1.5 10^3/uL (0.8-4.8); Lymphocytes % 48.6 %; Mean Corpuscular HGB Conc 29.9 g/dL (30.0-36.0); Mean Corpuscular Hemoglobin 26.3 pg (28.0-34.0); Mean Corpuscular Volume 88.3 fL (81-99); Mean Platelet Volume 10.4 fL (7.4-10.4); Monocytes # 0.3 10^3/uL (0.2-0.9); Monocytes % 8.4 %; Neutrophils # 1.21 10^3/uL (1.8-7.7); Neutrophils % 38.9 %; Nucleated Red Blood Cells % 0 %; Platelet Count 256 10^3/cmm (130-400); Red Blood Count 3.15 10^6/uL (4.1-5.3); Red Cell Distribution Width 17.2 % (12.1-15.1); White Blood Count 3.1 10^3/uL (4.0-10.0)
[2020-09-01] MEDS: dextrose 5%-sod chloride 0.45% 1,000 ML 75 ML IV (06:14)
--- NOTE | 2020-09-01 06:40 | PC.NURSE ---
PT BP HAS BEEN BETTER. PT DENIES PAIN. IV FLUIDS STARTED LATE D/T MEDITECH BEING DOWN AND PHARMACY HAVING TO BRING FLUIDS DOWN. WILL CONTINUE TO MONITOR.
[2020-09-01 07:00] LABS: Alanine Aminotransferase 25 U/L (0-33); Albumin Level 2.8 g/dL (3.5-5.2); Alkaline Phosphatase 73 IU/L (35-105); Anion Gap 11.5 (5-19); Aspartate Amino Transferase 35 U/L (0-32); Blood Urea Nitrogen 3 mg/dL (6-20); Calcium 8.1 mg/dL (8.5-10.5); Carbon Dioxide 29 mmol/L (22-29); Chloride 107 mmol/L (98-107); Glomerular Filtration Rate 127.6 mL/min (90-130); Glucose 113 mg/dL (65-115); Magnesium 1.7 mg/dL (1.7-2.3); Osmolality Calculated 295 mOsm/kg (285-295); Phosphorus 3.8 mg/dL (2.5-4.5); Potassium 3.5 mmol/L (3.5-5.1); Sodium 144 mmol/L (136-145); Thyroid Stimulating Hormone 1.02 uIU/mL (0.27-4.20); Total Bilirubin 0.2 mg/dL (0.15-1.2); Total Protein 4.8 g/dL (6.6-8.7)
--- NOTE | 2020-09-01 07:49 | PC.NURSE ---
patient sleeping on right side no outward s/s of pain noted.
[2020-09-01] MEDS: pantoprazole DR 40 mg Tablet PO ×2 (08:43→18:08)
[2020-09-01] MEDS: pregabalin 150 mg Capsule PO ×2 (08:43→18:08)
[2020-09-01] MEDS: oxyCODONE-APAP 5-325 mg Tablet 1.5 TAB PO ×3 (08:43→23:48)
[2020-09-01] MEDS: sertraline 100 mg Tablet PO (08:43)
--- NOTE | 2020-09-01 09:01 | PC.CHAP ---
Pastoral Care Encounter/Spiritual Assessment Type of Contact [] Declined pneumatic systems operator visit [] Patient/Family/Request visit [] Outpatient visit [] Follow-up visit [] Physician referral [] Code/Alert [] Routine visit [] Staff referral [] Actively dying [] Patient sleeping [] Family support [] [x] Out of room [] Palliative care [] [] Receiving care in room [] Pre-surgical visit [] Trauma [] Long length of stay [] ICU visit [] Other: Relational/Emotional Strength [] Patient feels connected with others/family/visitors/staff [] Distress [] Loneliness/isolation [] Abandonment Spirituality of Patient [] Person of [place] [] Attends Voodoo of their [place] [] Believes in Prayer [] Reads Bible or Hindu materials [] There are Spiritual issues to be addressed Supervisor Hot Dip Tinning Interventions [] Prayer [] Active listening [] Non-anxious presence [] Spiritual/emotional support [] Crisis/trauma care [] Spiritual counseling [] Bereavement support [] Provided bereavement packet [] Provided Bible/devotional materials [] Provided toy/stuffed animal, coloring book to patient or family member [] Provided Communion [] Anointing/[place] [] Salvation [] Completed spiritual assessment [] Other: Impact on Illness or Injury [] Angry [] Fearful [] Anxious [] Often cries [] Exhaustion [] Unable to work [] Unable to attend bahai [] Unable to walk/stand [] Unable to read [] Unable to drive [] Unable to eat/drink [] Unable to sleep [] Unable to be with family [] Patient intubated [] Other: Summary Time spent with patient
--- NOTE | 2020-09-01 16:35 | P.PN_ITS ---
Subjective Subjective: Interval history: continues with orthostatsic drops to 70 without having received any antihypertensive medications Medications: Reviewed: Yes Vitals/I&O/Wt Last Vital Signs Temp 98.0 F 09/01/20 11:13 Pulse 95 09/01/20 16:00 Resp 14 09/01/20 16:00 BP 184/103 09/01/20 16:00 Pulse Ox 95 09/01/20 11:13 09/01/20 09/01/20 09/01/20 06:59 14:59 22:59 Intake Total 1100 / 2836.25 960 / 960 Output Total 1000 / 3800 600 / 600 900 / 1500 Balance 100 / -963.75 360 / 360 -900 / -540 Weight last 48 hrs Weight 72.121 kg Physical Exam Narrative: EXAM NARRATIVE: GEN: Awake, alert and oriented, no acute distress CVS: S1S2 N RS: CTA B/L Abd: Soft, nt/nd , bs+ 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 deficits Data : 09/01/20 04:35 09/01/20 04:35 Micro: Microbiology 09/01/20 08:35 Occult Blood (FIT) - Final Stool Routine Collection 08/31/20 05:10 Blood Culture - Preliminary Blood NEGATIVE TO DATE 08/31/20 05:15 Blood Culture - Preliminary Blood NEGATIVE TO DATE A&P Assessment and plan (1) Syncope: -Syncope, no clear etiology at this leena e No h/o DM, continues to have drops in spite of stopping antihypertensives May represnt autonomic neuropathy of unclear cause check am cortisol level carotid ultrasound, cardiac echo without any gross abnormalities -Continue to check orthostatic vitals -Start fludrocortisone 0.1 mg po daily and monitor for response. Stop IVF Status: Acute Qualifiers: Syncope type: unspecified Qualified Code(s): R55 - Syncope and collapse (2) Anemia: -Has had a negative EGD colonoscopy -Status post gastric bypass FOBT negative -Had anemia last admission also -Takes iron and B12 at home -Hemoglobin stable -Monitor hemoglobin as she is on Lovenox Status: Acute (3) Pulmonary embolism: - right lower lobe pulmonary artery. This is consistent with an acute pulmonary embolism. No additional emboli are noted. Check lower extremity venous duplex -Does not currently require oxygen -Pending cardiac echocardiogram Continue full dose Lovenox in the meantime Status: Acute Additional A&P Information Full code Lovenox for DVT prophylaxis Attestations Medical Necessity Statement*: continues to be orthstatic, start flud rocortisone, add compression stockings Coding Level of Care Code Acute Staff Psychologist for Chg Fwd Diagnoses Syncope R55 Syncope type: unspecified Anemia D64.9 Pulmonary embolism I26.99
[2020-09-01 16:37] LABS: Estmated Average Glucose 108; Hemoglobin A1C 5.4 % (4.0-6.0)
--- NOTE | 2020-09-01 16:49 | USCV_ITS ---
Sj Land Age: 54 Gender: F : 1965 Exam Date: 09/01/2020 17:07 Ordering Phys: Carol Goins MD Technologist: Manjeet Condon [place]am Location: [facility] [place] Indication: PE HISTORY: Pulmonary embolism. PROCEDURES: Venous duplex imaging was performed in bilateral lower extremities. The following venous structures were evaluated: common femoral vein, profunda vein, proximal portion of the greater saphenous vein, superficial femoral vein, and the popliteal vein. In addition, the posterior tibial and peroneal trunk were evaluated. Serial compression, augmentation maneuvers, and spectral Doppler flow evaluation were performed. FINDINGS: Normal 2-D Doppler and augmentation and compressibility throughout the lower extremity venous structures. Additional imaging through the proximal calf veins also reveals no thrombus. Limited evaluation of the greater saphenous vein is patent with no thrombus.. CONCLUSIONS No evidence of right lower extremity DVT. No evidence of left lower extremity DVT. Jose Ramon Vergara MD (Electronically Signed) Final Date: 02 September 2020 11:52 S
--- NOTE | 2020-09-01 18:00 | PC.RESP ---
Smoking Cessation information sent to patient.
[2020-09-01] MEDS: fludrocortisone 0.1 mg Tablet PO (18:08)
--- NOTE | 2020-09-01 19:37 | PC.NURSE ---
Rounding: patient is resting in bed watching TV. Patient given a pitcher of ice as requested. NO other needs voiced at this time.
[2020-09-01] MEDS: TRAMadol 50 mg Tablet PO (21:13)
[2020-09-02] VITALS (14 sets, daily range): BP systolic 90–166; BP diastolic 60–102; PULSE 67–100; RESP 15–18; TEMP 36.3–36.9; O2SAT 91–98
[2020-09-02] MEDS: enoxaparin 80 mg/0.8 mL Syringe 70 MG SUBCUT ×2 (02:37→14:39)
[2020-09-02 05:32] LABS: Basophils % 0.3 %; Eosinophils # 0.1 10^3/uL (0.0-0.8); Eosinophils % 3.2 %; Hematocrit 28.1 % (37.0-47.0); Hemoglobin 8.4 g/dL (11.5-15.3); Lymphocytes # 1.3 10^3/uL (0.8-4.8); Mean Corpuscular HGB Conc 29.9 g/dL (30.0-36.0); Mean Corpuscular Hemoglobin 26.4 pg (28.0-34.0); Mean Corpuscular Volume 88.4 fL (81-99); Mean Platelet Volume 10.7 fL (7.4-10.4); Monocytes # 0.3 10^3/uL (0.2-0.9); Monocytes % 9.8 %; Neutrophils # 1.44 10^3/uL (1.8-7.7); Neutrophils % 45.7 %; Nucleated Red Blood Cells % 0 %; Platelet Count 248 10^3/cmm (130-400); Red Blood Count 3.18 10^6/uL (4.1-5.3); Red Cell Distribution Width 17.1 % (12.1-15.1); White Blood Count 3.2 10^3/uL (4.0-10.0)
[2020-09-02 05:50] LABS: INR 1.08 (0.8-1.2)
[2020-09-02 06:07] LABS: Alanine Aminotransferase 23 U/L (0-33); Albumin Level 2.7 g/dL (3.5-5.2); Alkaline Phosphatase 71 IU/L (35-105); Anion Gap 16.5 (5-19); Aspartate Amino Transferase 38 U/L (0-32); Blood Urea Nitrogen 3 mg/dL (6-20); Calcium 8.2 mg/dL (8.5-10.5); Carbon Dioxide 25 mmol/L (22-29); Chloride 105 mmol/L (98-107); Globulin 2.1 g/dL (1.3-4.6); Glomerular Filtration Rate 103.4 mL/min (90-130); Glucose 96 mg/dL (65-115); Magnesium 1.7 mg/dL (1.7-2.3); Osmolality Calculated 292 mOsm/kg (285-295); Phosphorus 4.3 mg/dL (2.5-4.5); Potassium 3.5 mmol/L (3.5-5.1); Sodium 143 mmol/L (136-145); Total Bilirubin 0.2 mg/dL (0.15-1.2); Total Protein 4.8 g/dL (6.6-8.7)
--- NOTE | 2020-09-02 07:45 | PC.NURSE ---
patient resting in bed. up to use restroom at this time. no other needs identified at this time. call light within reach
[2020-09-02] MEDS: sertraline 100 mg Tablet PO (08:33)
[2020-09-02] MEDS: pregabalin 150 mg Capsule PO ×2 (08:33→17:30)
[2020-09-02] MEDS: pantoprazole DR 40 mg Tablet PO ×2 (08:33→17:30)
[2020-09-02] MEDS: fludrocortisone 0.1 mg Tablet PO (08:33)
[2020-09-02] MEDS: oxyCODONE-APAP 5-325 mg Tablet 1.5 TAB PO ×3 (08:34→22:31)
--- NOTE | 2020-09-02 09:29 | PC.CHAP ---
Pastoral Care Encounter/Spiritual Assessment Type of Contact [] Declined drying machine receiver visit [] Patient/Family/Request visit [] Outpatient visit [] Follow-up visit [] Physician referral [] Code/Alert [] Routine visit [] Staff referral [] Actively dying [] Patient sleeping [] Family support [] [] Out of room [] Palliative care [] [] Receiving care in room [] Pre-surgical visit [] Trauma [] Long length of stay [] ICU visit [] Other: Relational/Emotional Strength [x] Patient feels connected with others/family/visitors/staff [] Distress [] Loneliness/isolation [] Abandonment Spirituality of Patient [x] Person of [place] [x] Attends Buddhism of their [place] [] Believes in Prayer [] Reads Bible or Denominational materials [] There are Spiritual issues to be addressed Kiln Firer Helper Interventions [x] Prayer [] Active listening [] Non-anxious presence [] Spiritual/emotional support [] Crisis/trauma care [] Spiritual counseling [] Bereavement support [] Provided bereavement packet [] Provided Bible/devotional materials [] Provided toy/stuffed animal, coloring book to patient or family member [] Provided Communion [] Anointing/[place] [] Salvation [x] Completed spiritual assessment [] Other: Impact on Illness or Injury [] Angry [] Fearful [] Anxious [] Often cries [] Exhaustion [] Unable to work [] Unable to attend oriental orthodox [] Unable to walk/stand [] Unable to read [] Unable to drive [] Unable to eat/drink [] Unable to sleep [] Unable to be with family [] Patient intubated [] Other: Summary feeling nbetter but still has pain 15 min Time spent with patient
--- NOTE | 2020-09-02 14:33 | PM.PN ---
Subjective Subjective: Interval history: Patient's blood pressure appears to be better controlled today. This a.m. she was noted to have some static dropped to 90s, however by this afternoon her blood pressures are much more stable. Continues to be tachycardic with heart rate going up to 120s intermittently.Has not attempted to get out of bed yet therefore unable to evaluate for symptoms of dizziness or syncope. Lower extremity Doppler without evidence of DVT Medications: Reviewed: Yes Vitals/I&O/Wt Last Vital Signs Temp 97.3 F L 09/02/20 11:28 Pulse 96 09/02/20 12:44 Resp 16 09/02/20 12:44 BP 128/85 09/02/20 12:00 Pulse Ox 96 09/02/20 12:44 09/01/20 09/02/20 09/02/20 22:59 06:59 14:59 Intake Total 590 / 1550 400 / 1950 1200 / 1200 Output Total 1400 / 2000 1300 / 3300 500 / 500 Balance -810 / -450 -900 / -1350 700 / 700 Physical Exam Narrative: EXAM NARRATIVE: GEN: Awake, alert and oriented, no acute distress CVS: S1S2 N RS: CTA B/L Abd: Soft, nt/nd , bs+ RES HABILITATION ASSISTANT: no focal neuro deficits Data : 09/02/20 04:31 09/02/20 04:31 Micro: Microbiology 09/01/20 08:35 Occult Blood (FIT) - Final Stool Routine Collection A&P Assessment and plan (1) Syncope: -Multiple syncopal episodes related to orthostatic hypotension Unclear cause of orthostatic hypotension No h/o DM, may represent autonomic neuropathy of unclear cause am cortisol and TSH within normal range carotid ultrasound, cardiac echo without any gross abnormalities CT head without any acute abnormalities Orthostatic vitals do appears to be somewhat better, likely as a result of initiation of fludrocortisone yesterday. We will continue to monitor over the next 24 hours and if orthostatic blood pressures remain stable we will plan for discharge -Continue fludrocortisone 0.1 mg po daily and monitor for response. Status: Acute Qualifiers: Syncope type: unspecified Qualified Code(s): R55 - Syncope and collapse (2) Anemia: -Has had a negative EGD colonoscopy -Status post gastric bypass FOBT negative Hemoglobin currently stable on Lovenox Status: Acute (3) Pulmonary embolism: - right lower lobe pulmonary artery. This is consistent with an acute pulmonary embolism. No additional emboli are noted. LE venous Duplex without signs of DVT Currently on RA Continue full dose Lovenox, plan to transition to Eliquis upon discharge. Imperative to make sure patient does not have any more orthostatic drops prior to discharge home as she will remain high risk for bleeding complications from traumatic falls while on anticoagulation. Status: Acute Additional A&P Information Full code Lovenox for DVT prophylaxis Attestations Medical Necessity Statement*: Orthostatic patient appears to be improving today, will closely monitor over the next 24 hours. If stable will plan to transition to home tomorrow on Eliquis. Coding Level of Care Code Acute Buffer Automatic for Suhag Fwd Diagnoses Syncope R55 Syncope type: unspecified Anemia D64.9 Pulmonary embolism I26.99
[2020-09-02] MEDS: TRAMadol 50 mg Tablet PO (14:42)
--- NOTE | 2020-09-02 18:42 | PC.NURSE ---
patient had an uneventful shift. ambulated in room multiple times today. resting in bed at this time. needs within reach.
[2020-09-02] MEDS: acetaminophen 325 mg Tablet 650 MG PO (19:23)
[2020-09-03] VITALS (12 sets, daily range): BP systolic 114–195; BP diastolic 79–117; PULSE 65–94; RESP 13–18; TEMP 36.1–37.2; O2SAT 92–98
[2020-09-03] MEDS: enoxaparin 80 mg/0.8 mL Syringe 70 MG SUBCUT ×2 (02:35→14:58)
[2020-09-03] MEDS: oxyCODONE-APAP 5-325 mg Tablet 1.5 TAB PO ×3 (05:15→18:11)
[2020-09-03 05:39] LABS: Basophils % 0.7 %; Eosinophils # 0.1 10^3/uL (0.0-0.8); Hematocrit 30.5 % (37.0-47.0); Hemoglobin 9.2 g/dL (11.5-15.3); Lymphocytes # 1.4 10^3/uL (0.8-4.8); Lymphocytes % 45.2 %; Mean Corpuscular HGB Conc 30.2 g/dL (30.0-36.0); Mean Corpuscular Hemoglobin 26.5 pg (28.0-34.0); Mean Corpuscular Volume 87.9 fL (81-99); Mean Platelet Volume 10.3 fL (7.4-10.4); Monocytes # 0.3 10^3/uL (0.2-0.9); Monocytes % 9.6 %; Neutrophils # 1.25 10^3/uL (1.8-7.7); Neutrophils % 41.5 %; Nucleated Red Blood Cells % 0 %; Platelet Count 272 10^3/cmm (130-400); Red Blood Count 3.47 10^6/uL (4.1-5.3); Red Cell Distribution Width 17.1 % (12.1-15.1)
[2020-09-03 06:14] LABS: INR 1.03 (0.8-1.2)
[2020-09-03 06:17] LABS: Alanine Aminotransferase 32 U/L (0-33); Albumin Level 3.1 g/dL (3.5-5.2); Alkaline Phosphatase 81 IU/L (35-105); Aspartate Amino Transferase 70 U/L (0-32); Blood Urea Nitrogen 5 mg/dL (6-20); Calcium 8.7 mg/dL (8.5-10.5); Carbon Dioxide 31 mmol/L (22-29); Chloride 103 mmol/L (98-107); Globulin 2.2 g/dL (1.3-4.6); Glomerular Filtration Rate 103.4 mL/min (90-130); Glucose 82 mg/dL (65-115); Magnesium 1.8 mg/dL (1.7-2.3); Osmolality Calculated 292 mOsm/kg (285-295); Sodium 143 mmol/L (136-145); Total Bilirubin 0.2 mg/dL (0.15-1.2); Total Protein 5.3 g/dL (6.6-8.7)
--- NOTE | 2020-09-03 06:27 | PC.NURSE ---
PT RESTING IN BED. PT STATED 9/10 PAIN IN BACK. PRN OXYCODONE GIVEN FOR PAIN. WILL CONTINUE TO MONITOR.
[2020-09-03] MEDS: pregabalin 150 mg Capsule PO ×2 (09:16→17:34)
[2020-09-03] MEDS: sertraline 100 mg Tablet PO (09:16)
[2020-09-03] MEDS: fludrocortisone 0.1 mg Tablet PO (09:17)
[2020-09-03] MEDS: pantoprazole DR 40 mg Tablet PO ×2 (09:17→17:34)
[2020-09-03] MEDS: TRAMadol 50 mg Tablet PO (09:17)
--- NOTE | 2020-09-03 10:38 | DCPLANNER ---
IMM completed 09/03/2020 @ 1026. Copy of rights given to pt.
--- NOTE | 2020-09-03 11:50 | PM.DCS ---
Discharge Providers Date of Admission: 08/31/20 18:16 Date of Discharge: September 03, 2020 Attending Provider at Admission: Josh Quinteros MD Attending Provider at Discharge: Carol Goins MD Primary Care Provider: Paul Mike DO Diagnoses at Discharge Discharge Diagnosis (1) Syncope: Status: Acute Qualifiers: Syncope type: unspecified Qualified Code(s): R55 - Syncope and collapse (2) Anemia: Status: Acute (3) Pulmonary embolism: Status: Acute Reason for Visit Reason for Visit: BP LOW 60/40 / FALLEN SEVERAL TIMES Hospital Course Hospital Course Sj Land is a 54 year old female with a past medical history of gastric bypass, chronic pain on multiple opiates and neuropathic medications, cervical disc disease, recent hospital discharge for midgut volvulus who presents to [facility] due to frequent falls and syncopal episodes over the past 2 months. She was noted to have significant orthostatic drops in her blood pressure to SBP 70s to 80s with concomitant tachycardia. She does not have any history of diabetes, unsure of these changes represent autonomic neuropathy. Carotid ultrasound and cardiac echo are without any gross abnormalities. CT head also did not show any acute intracranial changes. She was started on treatment with fludrocortisone 0.1 mg p.o. daily and this did resolve her orthostatic hypotension. On multiple checks over the last 24 hours she has not had any orthostatic drop in her heart rate is much better controlled. He is being discharged today on fludrocortisone and advised to check her blood pressure twice a day every day. It was especially important that her orthostatic hypotension be addressed prior to discharge as she also has a pulmonary embolism in the right lower lobe pulmonary artery. Lower extremity duplex was without any signs of DVT. She remained on room air during admission. She is currently on full dose Lovenox which is being transitioned to Eliquis. Since she is being discharged on anticoagulation orthostatic hypotension needed to be addressed prior to discharge. Discharge Data Data Completed and Pending: Completed Studies During Hospitalization Category Date Time Status CT angio chest PE protcl [id number] Urge nt Cat Scan 08/30/20 23:[address] cervical spin wo con* [id number] Urge nt Cat Scan 08/30/20 19:[address] facial bones w o con* [id number] Urgen t Cat Scan 08/30/20 19:[address] head wo con* 7 [id number] Urgent Cat Scan 08/30/20 19:07 Completed XR chest 1V anitra ble [id number] Stat Exams 08/30/20 19:07 Completed CV carotid duplex BI* [id number] Routine Ultrasound 08/31/20 01:42 Completed CV echo complete* [id number] Routine Ultrasound 08/31/20 01:42 [place] [id number] Routin e Ultrasound 09/01/20 16:49 Completed Pending at discharge Category Date Time Status Blood Culture Sta t Lab 08/31/20 05:10 Results Labs from last 24 hours 09/03/20 09/03/20 09/03/20 05:09 05:09 05:09 WBC 3.0 L RBC 3.47 L Hgb 9.2 L Hct 30.5 L MCV 87.9 MCH 26.5 L MCHC 30.2 RDW 17.1 H Plt Count 272 MPV 10.3 Neut % (Auto) 41.5 Lymph % (Auto) 45.2 [place] % (Auto) 9.6 Eos % (Auto) 3.0 Baso % (Auto) 0.7 Neut # (Auto) 1.25 L Lymph # (Auto) 1.4 [place] # (Auto) 0.3 Eos # (Auto) 0.1 Baso # (Auto) 0.0 Nucleated RBC % (a uto) 0 Nucleated RBCs # 0.0 PT 13.80 INR 1.03 Sodium 143 Potassium 4.0 Chloride 103 Carbon Dioxide 31 H Anion Gap 13.0 BUN 5 L Creatinine 0.6 GFR Calculation 103.4 Glucose 82 Calculated Osmolal ity 292 Calcium 8.7 Phosphorus 5.0 H Magnesium 1.8 Total Bilirubin 0.2 AST 70 H ALT 32 Alkaline Phosphata se 81 Total Protein 5.3 L Albumin 3.1 L Globulin 2.2 Vitals: Last Vital Signs Temp 97.0 F L 09/03/20 10:52 Pulse 81 09/03/20 10:53 Resp 17 09/03/20 10:52 BP 136/90 09/03/20 10:53 Pulse Ox 94 09/03/20 10:52 Discharge Plan Discharge Patient Disposition: Home Condition: Stable Prescriptions: New pantoprazole 40 mg Tablet,Delayed Release (Dr/Ec) 40 mg PO DAILY 30 Days Qty: 30 RF: 0 fludrocortisone 0.1 mg Tablet 0.1 mg PO DAILY 30 Days RF: 0 Eliquis 5 mg tablet See Rx Instructions .ROUTE .COMPLEX Qty: 60 RF: 0 Continued alendronate 70 mg tablet See Rx Instructions .ROUTE .COMPLEX RF: 0 pregabalin [Lyrica] 150 mg capsule 150 mg PO BID RF: 0 lidocaine [Lidoderm] 5 % adhesive patch,medicated See Rx Instructions .ROUTE .COMPLEX RF: 0 sertraline 100 mg tablet 100 mg PO DAILY RF: 0 albuterol sulfate 2.5 mg /3 mL (0.083 %) Solution For Nebulization 2.5 mg INHALATION Q4H PRN (Reason: Shortness Of Breath) RF: 0 oxycodone-acetaminophen 7.5-325 mg Tablet 1 tab PO QID PRN (Reason: Pain) RF: 0 albuterol sulfate [Ventolin HFA] 90 mcg/actuation Hfa Aerosol Inhaler 2 puff INHALATION Q4H PRN (Reason: Shortness Of Breath) RF: 0 alprazolam 0.25 mg tablet 0.25 mg PO BID PRN (Reason: Anxiety) RF: 0 promethazine 25 mg Tablet 25 mg PO Q6H PRN (Reason: Nausea) RF: 0 oxexqlhdei-vjfanrbcqndjw-wlur 50-300-40 mg Capsule 1 - 2 cap PO Q4H PRN (Reason: Headache) RF: 0 potassium chloride 20 mEq Tablet Extended Release 20 meq PO DAILY RF: 0 Changed tramadol 50 mg tablet 50 mg PO TID PRN (Reason: PAIN) Qty: 0 RF: 0 Discontinued tizanidine 2 mg capsule 2 - 4 mg PO TID PRN (Reason: Muscle Pain) RF: 0 multivitamin [Multiple Vitamins] Tablet 1 tab PO DAILY RF: 0 metoprolol tartrate 50 mg Tablet 50 mg PO BID RF: 0 rmdogtjjuf-iffqehhsprkss-sehb [Fioricet] 50-300-40 mg capsule 1 cap PO Q4H PRN (Reason: headache) Qty: 20 RF: 0 Discharge Orders: Discharge Order (Routine); Ordered 08/31/20 Ordered By: Juan Masters Referrals: Paul Mike DO [Primary Care Provider] - 1-3 days Discharge Diet: Usual diet Discharge Activity: Increase activity as tolerated Patient Instructions: Syncope (ED) Activity Restrictions/Additional Instructions: Return immediately to the ER for continued or worsening episodes of syncope, any chest pain, shortness of breath, fever, mental status changes, weakness, or other concerning symptoms. Continue to check your blood pressure twice daily. Your doctor may want to order further outpatient tests, such as a heart monitor. 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
--- NOTE | 2020-09-03 16:16 | PC.NURSE ---
rosalind notified of pt blood pressure being 168/112 sitting, 161/127 standing. medications changed for discharge.
== END 2020-09-03 18:25 | disposition home or self-care (01) | DRG 176 ==
LOC: ER 08-31 00:51 → CSU 08-31 01:06
PROVIDERS: Emergency Medicine; Admitting Provider Family Medicine; Emergency Provider Emergency Medicine; PCP Electrodiagnostic Medicine; Visit Provider Student in an Organized Health Care Education/Training Program
DX: I26.99 Other pulmonary embolism without acute cor pulmonale (principal); M50.020 Cervical disc disorder with myelopathy, mid-cervical region, unspecified level; B02.29 Other postherpetic nervous system involvement; I95.1 Orthostatic hypotension; Z98.84 Bariatric surgery status; G89.29 Other chronic pain; Z79.891 Long term (current) use of opiate analgesic; R29.6 Repeated falls; Z91.81 History of falling; I10 Essential (primary) hypertension; F17.210 Nicotine dependence, cigarettes, uncomplicated; Z98.1 Arthrodesis status; D64.9 Anemia, unspecified; R00.0 Tachycardia, unspecified; Z79.51 Long term (current) use of inhaled steroids
CPT/HCPCS: 12345; 36415; 70450; 70486; 71045; 71275; 72125; 80048; 80053; 81003; 82274; 82533; 82550; 83036; 83735; 84100; 84443; 84484; 85007; 85025; 85027; 85378; 85610; 87040; 93005; 93306; 93880; 93970; 94664; 96372; 97161; 99283; G0378; J1170; J1650; J2270; J2405; J3490; J7030; J7799; Q9967

== ENCOUNTER 2020-09-23 12:01 | Outpatient (CLI) | payer MEDICARE, OTHER, SELFPAY ==
--- NOTE | 2020-09-23 12:14 | US_ITS ---
WS: [id number] INDICATION: Foot pain TECHNIQUE: Ultrasound soft tissue area of concern FINDINGS: Ultrasound soft tissue area of concern. Small amount of fluid adjacent to the fourth digit. Tiny sliver of fluid measures 5.6 x 2.0 mm. No evidence of cystic or solid lesion. No visualized leeanna francisco. No drainable fluid collection. No other abnormalities. US/US soft tissue/extremity [id number] IMPRESSION: Tiny amount of fluid adjacent to the fourth digit. No other abnorma lities.
== END 2020-09-23 12:02 | disposition home or self-care (01) ==
PROVIDERS: PCP Electrodiagnostic Medicine; Visit Provider Podiatrist Foot & Ankle Surgery
DX: M79.672 Pain in left foot (principal)
CPT/HCPCS: 76882

== ENCOUNTER 2020-10-01 11:34 | Outpatient (CLI) | payer MEDICARE, OTHER, SELFPAY ==
--- NOTE | 2020-10-01 11:49 | XR_ITS ---
WS: [id number] FOOT LEFT TECHNIQUE: 3 views of the left foot CLINICAL INFORMATION: S99.922A - Unspecified injury of left foot, initial encounter COMPARISON: None. FINDINGS: Osteopenia. Normal anatomic alignment. No acute fractures. Small plantar calcaneal spur. Healing/heal ed fractures involving the base of the second and third metatarsal shafts. XR/XR foot LT min 3V* [id number] IMPRESSION: Healing/healed fractures involving the base of the second and third metatarsal shafts
== END 2020-10-01 11:35 | disposition home or self-care (01) ==
PROVIDERS: PCP Electrodiagnostic Medicine; Visit Provider Podiatrist Foot & Ankle Surgery
DX: S92.322A Displaced fracture of second metatarsal bone, left foot, initial encounter for closed fracture (principal); S92.332A Displaced fracture of third metatarsal bone, left foot, initial encounter for closed fracture; X58.XXXA Exposure to other specified factors, initial encounter
CPT/HCPCS: 73630

== ENCOUNTER 2020-10-02 16:14 | Outpatient (CLI) | payer MEDICARE, OTHER, SELFPAY | END 2020-10-02 16:15 | disposition home or self-care (01) | LOC: SPT 16:14 | PROVIDERS: PCP Electrodiagnostic Medicine; Visit Provider Podiatrist Foot & Ankle Surgery | DX: M25.551 Pain in right hip (principal); M25.562 Pain in left knee | CPT/HCPCS: 97760; L4361 ==

== ENCOUNTER 2020-10-17 17:25 | Emergency (ER) | payer MEDICARE, OTHER, SELFPAY ==
[2020-10-17 17:48] VITALS: PULSE 104; RESP 14; TEMP 36.5; O2SAT 95; BMI 22.4
[2020-10-17 18:07] VITALS: PULSE 98
[2020-10-17 18:11] VITALS: BP 69/50; PULSE 94; RESP 22; O2SAT 94
--- NOTE | 2020-10-17 18:19 | XRR_ITS ---
PROCEDURE INFORMATION: Exam: XR Left Foot Exam date and time: 10/17/2020 7:29 PM Age: 54 years old Clinical indication: Injury or trauma; Fall; Blunt trauma; Foot; Left; Injury date: 10/16/20; Additional info: Fall. H/o fracture TECHNIQUE: Imaging protocol: XR Left foot. Views: 1 or 2 views. Total images: 2 COMPARISON: CR XR foot LT min 3V* [id number] 10/01/2020 12:05 PM FINDINGS: Bones/joints: Minimally displaced oblique fracture neck of the 3rd metatarsal left foot. Osteoporosis. Mild primary osteoarthritis. Soft tissues: Unremarkable. XR/XR foot LT 2V [id number] IMPRESSION: Minimally displaced oblique fracture neck of the 3rd metatarsal left foot.
--- NOTE | 2020-10-17 18:25 | XRR_ITS ---
PROCEDURE INFORMATION: Exam: XR Chest, 1 View Exam date and time: 10/17/2020 7:29 PM Age: 54 years old Clinical indication: Other: Weakness; Additional info: Weakness/syncope TECHNIQUE: Imaging protocol: XR of the chest Views: 1 view. Total images: 1 COMPARISON: CT angio chest w abd pel w con 10/17/2020 7:15 PM FINDINGS: Lungs: No radiographically visible active interstitial or alveolar airspace disease. Evidence of antecedent granulomatous disease. Pleural space: Unremarkable. No pleural effusion. No pneumothorax. Heart/Mediastinum: Cardiac structures and configuration unremarkable. Bones/joints: Unremarkable. XR/XR chest 1V portable [id number] IMPRESSION: Nonacute.
--- NOTE | 2020-10-17 18:28 | ECG_ITS ---
[facility] Test Date: 2020-10-17 Pat Name: jS Land Department: Room: Gender: Female Drawer In Stitch Bonding Machine: : 1965 Requested By: Yoel Birch Order Number: [id number] Rapp MD: Bruno Meraz M.D. Measurements Intervals [place] Rate: 86 P: 69 MO: 124 QRS: 53 QRSD: 84 T: 44 QT: 339 QTc: 407 Interpretive Statements SINUS RHYTHM POSSIBLE LEFT ATRIAL ENLARGEMENT [-0.1mV P WAVE IN V1/V2] Compared to ECG 08/31/2020 01:25:18 No significant changes Electronically Signed On 10-18-2020 16:44:07 GEOPHYSICAL ENGINEER by Bruno Meraz M.D. [id number]
[2020-10-17] MEDS: sodium chloride 0.9% 1,000 ML 999 ML IV (18:47)
[2020-10-17] MEDS: ondansetron 2 mg/ML SDV 2 mL 4 MG IVP (18:47)
--- NOTE | 2020-10-17 18:49 | CTR_ITS ---
PROCEDURE INFORMATION: Exam: CT Angiography Chest With Contrast Exam date and time: 10/17/2020 7:25 PM Age: 54 years old Clinical indication: Abdominal tenderness; Dyspnea; Prior surgery; Surgery type: Gb, gastric sleeve, lumbar; Additional info: H/o pe TECHNIQUE: Imaging protocol: Computed tomographic angiography of the chest with intravenous contrast. 3D rendering (Not supervised by radiologist): MIP and/or 3D reconstructed images were created by the technologist. Total images: 1094 Radiation optimization: All CT scans at this facility use at least one of these dose optimization techniques: automated exposure control; mA and/or kV adjustment per patient size (includes targeted exams where dose is matched to clinical indication); or iterative reconstruction. Contrast material: 1251.63; Contrast volume: 95 ml; Contrast route: INTRAVENOUS (IV); COMPARISON: CT angio chest PE protcl [id number] 08/30/2020 11:50 PM RADIATION DOSE METRICS: Total DLP (mGy-cm): 1251.63 FINDINGS: Pulmonary arteries: No visible evidence of pulmonary embolism/pulmonary arterial thrombus. Aorta: The thoracic aorta is nonaneurysmal. No visible intimal flap or dissection. Thyroid: Thyroid goiter stable. No follow-up recommended. Lungs: No visible active interstitial or alveolar airspace disease. Stable calcified granuloma anterior segment left upper lobe. Pleural space: Unremarkable. No pneumothorax. No pleural effusion. Heart: No cardiomegaly. No visible pericardial effusion. No visible coronary artery disease. Lymph nodes: No visible active mediastinal or hilar lymphadenopathy. Rare calcified complex of antecedent granulomatous disease. Bones/joints: No visible active or acute osseous pathology. Mild degenerative disease of the spine. Soft tissues: Unremarkable. IMPRESSION: 1. No visible evidence of pulmonary embolism/pulmonary arterial thrombus. 2. Calcified granulomas of antecedent disease. PROCEDURE INFORMATION: Exam: CT Abdomen And Pelvis With Contrast Exam date and time: 10/17/2020 7:25 PM Age: 54 years old Clinical indication: Abdominal tenderness; Dyspnea; Prior surgery; Surgery type: Gb, gastric sleeve, lumbar; Additional info: H/o pe TECHNIQUE: Imaging protocol: Computed tomography of the abdomen and pelvis with intravenous contrast. Radiation optimization: All CT scans at this facility use at least one of these dose optimization techniques: automated exposure control; mA and/or kV adjustment per patient size (includes targeted exams where dose is matched to clinical indication); or iterative reconstruction. Contrast material: 1251.63; Contrast volume: 95 ml; Contrast route: INTRAVENOUS (IV); COMPARISON: 1. CT angio chest PE protcl [id number] 08/30/2020 11:[address] abdomen pelvis w con* [id number] 08/07/2020 12:41:[address] abdomen pelvis w con* [id number] 08/05/2020 10:33:32 AM RADIATION DOSE METRICS: Total DLP (mGy-cm): 1251.63 FINDINGS: Liver: Advanced diffuse fatty infiltration of the liver with hepatomegaly. No visible hepatic mass or cystic structure identified. Gallbladder and bile ducts: Status post cholecystectomy. Pancreas: Mild atrophic changes to the pancreas. No visible pancreatic ductal ectasia. Spleen: Spleen unremarkable. Adrenal glands: Adrenal glands unremarkable. Kidneys and ureters: Kidneys unremarkable. No hydronephrosis or perinephric fluid. No visible nephrolithiasis. No visible ureterolithiasis. Stomach and bowel: Status post gastroplasty. Assessment of the hollow viscus fails to reveal evidence of active or acute pathology. Nonobstructed bowel pattern. No visible acute diverticulitis. No visible adynamic or reactive ileus. Small bowel anastomotic sutures intact. 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 Second smaller focus left lower quadrant. No visible vascular compromise. Appendix: No evidence of appendicitis. Intraperitoneal space: No visible pneumoperitoneum. No visible intraperitoneal ascites. 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 No visible vascular compromise. Vasculature: The abdominal aorta is nonaneurysmal. Lymph nodes: No current visible evidence of active mesenteric or retroperitoneal lymphadenopathy. Urinary bladder: Urinary bladder unremarkable. Reproductive: Status post hysterectomy. Bones/joints: No visible acute or active osseous pathology. Previous fusion L5 and S1 with anterior compression plate and screw fixation and intervertebral disc prosthesis. Mild scoliotic curvature. Soft tissues: Unremarkable. CT/CT angio chest w abd pel w con IMPRESSION: 1. No visible evidence of acute abdominal or pelvic pathologic process. 2. Advanced diffuse fatty infiltration liver with hepatomegaly. 3. 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 Second smaller focus left lower quadrant. No visible vascular compromise. 4. Other nonurgent, nonemergent, chronic, and age related findings as detailed in text above. Radiation Dose CTDIVOL = (mGy): DLP = 1251.63~1251.63 (mGy-cm)
--- NOTE | 2020-10-17 18:50 | USR_ITS ---
PROCEDURE INFORMATION: Exam: US Duplex Lower Extremity Veins, Bilateral Exam date and time: 10/17/2020 9:08 PM Age: 54 years old Clinical indication: Pain; Foot; Left; Additional info: R/O dvt. Swelling/h/o pe TECHNIQUE: Imaging protocol: Real-time duplex ultrasound of the extremities with 2-D pimentel scale, color Doppler flow and spectral waveform analysis with image documentation. Complete exam focused on the bilateral lower extremity veins. Total images: 63 COMPARISON: No relevant prior studies available. FINDINGS: Right deep veins: Unremarkable. The common femoral, femoral, proximal profunda femoral and popliteal veins are patent without thrombus. Normal Doppler waveforms. Normal compressibility and/or augmentation response. Right superficial veins: Saphenofemoral junction is patent without thrombus. Left deep veins: Unremarkable. The common femoral, femoral, proximal profunda femoral and popliteal veins are patent without thrombus. Normal Doppler waveforms. Normal compressibility and/or augmentation response. Left superficial veins: Saphenofemoral junction is patent without thrombus. Soft tissues: Unremarkable. US/CV venous duplex [facility] [id number] IMPRESSION: No evidence of deep vein thrombosis.
[2020-10-17] MEDS: iohexol 350 mg/mL 100 mL Btl IV (19:28)
--- NOTE | 2020-10-17 19:30 | W.ED.EXTPRO ---
HPI - Extremity Problem General: Chief complaint: Extremity Problem,Nontraumatic Stated complaint: injury lft foot Time Seen by Provider: 10/17/20 18:08 History of Present Illness: HPI Narrative: The patient is a 54-year-old female with past medical history recent PE, and left midfoot fracture who comes to the ER complaining of left foot pain after she tripped and fell again. Her blood pressure was in the 60s systolic on arrival and she is slightly sleepy. She does take opiates for chronic pain daily and admits to taking them as prescribed. Further reading into her chart shows that she possibly does have some autonomic neuropathy causing her blood pressure issues versus other causes and was recently admitted for this and started on fludrocortisone. Associated symptoms: Deny chest pain or rash Review of Systems General: Reports: 10 or more systems reviewed and unremarkable except in HPI and below Const: Denies: fatigue Eyes: Denies: change in vision, blurry vision or eye redness ENMT: Denies: throat pain, swelling of lips/tongue, ear or mastoid pain or nasal congestion Card: Denies: chest pain, palpitations, irregular heart rhythm, edema, dyspnea on exertion or orthopnea Resp: Denies: dyspnea, productive cough or non-productive cough GI: Denies: abdominal pain, diarrhea or GI cramping : Denies: flank pain, difficulty voiding, urinary frequency or urinary urgency Musc: Reports: extremity pain (Left foot pain); Denies: neck pain, back pain, joint pain, joint redness, limited range of motion or muscle weakness Skin/Breast: Denies: rash, pruritus, erythema, skin pain or skin tenderness Neuro: Denies: headache(s), numbness in extremities, weakness in extremities, sensory changes, difficulty walking, dizziness, confusion or Slurred speech present Psych: Denies: anxiety or depression Endo: Denies: polyuria All/Imm: Denies: urticaria, throat swelling or tongue swelling PFSH ED PFSH: Medical History Cervical disc disorder with myelopathy of mid-cervical region Chronic back pain HTN (hypertension) HZV (herpes zoster virus) post herpetic neuralgia Smoker Surgical History History of lumbar spinal fusion (~2017) Dr. Elvin Leija, anterior L5-S1 fusion/fixation. History of wrist fracture R wrist fracture repair Hx of gastric bypass Hx of hysterectomy / BSO Status post cholecystectomy Family History Father Cancer Family history of myocardial infarction Mother Lung disease Dementia Social History Smoking and tobacco status: current every day smoker cigarettes Packs smoked per day: 0.75 Years cigarettes smoked: 35 [ Other cigarette details: Used to smoke more heavily ] Alcohol intake: never Household members: spouse Marital status: Current occupational status: disabled History of recent travel: No Physical Exam Const: COMMON NORMALS: no acute distress, average body habitus, patient oriented x3, no limitations, healthy appearing, alert and well nourished GENERAL APPEARANCE: cooperative, comfortable, well kempt and well developed ORIENTATION/CONSCIOUSNESS: Yes awake, Yes oriented to person, Yes oriented to place and Yes oriented to time HENMT: COMMON NORMALS: normocephalic, external ears normal and Normal external nose present HEAD & SCALP: normal to inspection and normocephalic NOSE: Normal external nose present EXTERNAL EAR: Yes external ears normal MOUTH: Normal oral and palatal mucosa present THROAT: posterior oropharynx normal Eye: COMMON NORMALS: Equal, round and reactive pupils present and EOMs intact bilaterally GENERAL EYE: appearance normal, both eyes and all related structures PUPIL: Yes Equal, round and reactive pupils present Neck/C-Spine: COMMON NORMALS: full ROM, no lymphadenopathy, no meningeal signs and no JVD GENERAL: Yes normal visual inspection Lymph: LYMPHATIC: no lymphadenopathy noted Chest: COMMONS NORMALS: normal inspection of the chest and normal palpation of entire chest wall Resp: COMMON NORMALS: normal respiratory effort, No retractions, No use of accessory muscles, clear to auscultation bilaterally and percussion normal EFFORT & INSPECTION: Yes able to speak in complete sentences AUSCULTATION: clear to auscultation bilaterally PERCUSSION: percussion normal Cardio: COMMON NORMALS: no JVD, regular rate, regular rhythm, S1 normal heart sound present, S2 normal heart sound present and Peripheral pulses 2+ throughout RATE: regular rate RHYTHM: regular rhythm HEART SOUNDS: S1 normal heart sound present and S2 normal heart sound present PERIPHERAL PULSES: Peripheral pulses 2+ throughout GI: COMMON NORMALS: Normal to inspection, nondistended, normoactive bowel sounds present, Soft to palpation, non-tender and no masses INSPECTION: Yes normal to inspection PALPATION: Yes Soft to palpation : COMMON NORMALS: Yes no CVA tenderness BLADDER/KIDNEY EXAM: Yes no CVA tenderness Back/Pelvis: COMMON NORMALS: no CVA tenderness, thoracic and lumbar spine normal to inspection, no thoracic nor lumbar tenderness and thoraco-lumbar ROM normal Extremity: COMMON NORMALS: normal to inspection, full ROM, capillary refill normal, no joint enlargement and no pedal edema GENERAL: Yes normal exam except as noted Neuro: COMMON NORMALS: patient oriented x3, CN's II-XII intact bilaterally, moves all extremities, no focal motor deficits, no sensory deficits noted and gait normal SENSORIUM/ORIENTATION: Yes alert, Yes oriented to person, Yes oriented to place and Yes oriented to time MENINGEAL SIGNS: Yes no meningeal signs Psych: COMMON NORMALS: mental status grossly normal, Normal thought process present, cooperative, normal affect and speech normal APPEARANCE: Yes well kempt ATTITUDE: Yes calm SPEECH: Yes normal speech THOUGHT PROCESS: Normal thought process present Skin: COMMON NORMALS: no rashes or lesions noted GENERAL SKIN EXAM: no rashes or lesions noted Course Vital Signs: Vital signs: Vital Signs Temperature 97.7 F 10/17/20 17:48 Pulse Rate 107 H 10/17/20 23:00 Respiratory Rate 16 10/17/20 23:00 Blood Pressure 143/88 10/17/20 23:00 Pulse Oximetry 93 10/17/20 23:00 MDM - Extremity (Nontraumatic) MDM Narrative: Medical decision making narrative: The patient came to the ER after a fall and left foot pain. She has indeed fractured one of her metatarsals and it is slightly displaced. We will place her back in the boot she came in and recommend she follow-up with the orthopedic surgeon. Also her blood pressure on arrival was remarkably low with a systolic in the 60s. She has been admitted and seen for this as an outpatient as well and started on fludrocortisone. The thought process is that there is likely some autonomic neuropathy that is at play here. I gave her a liter of fluids and her pressure resolved for the duration of her stay. I also suspect dehydration is playing a part as she has gastric bypass and is unable to adequately drink water to keep herself hydrated. She also has a mild urinary tract infection which is likely contributing. 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 She was admitted 4 days upstairs and no surgical intervention was recommended. I offered her admission and transfer to a facility with a gastric bypass surgeon she refused this saying that her gastric bypass surgeon told her there is nothing to be done about that problem. I again encouraged her to stay and be transferred to a different hospital for evaluation because this could become necrotic and kill her bowel which she could from. She is alert and oriented x4, understands the risks and accepts them and chooses to be discharged home. I told her she may return to the ER at any time for transfer. Lab Data: Labs: Lab Results 10/17/20 10/17/20 10/17/20 Range/Units 18:45 18:45 18:45 WBC 4.5 (4.0-10.0) 10^3/ uL RBC 3.62 L (4.1-5.3) 10^6/u L Hgb 9.9 L (11.5-15.3) g/dL Hct 32.2 L (37.0-47.0) % MCV 89.0 (81-99) fL MCH 27.3 L (28.0-34.0) pg MCHC 30.7 (30.0-36.0) g/dL RDW 20.1 H (12.1-15.1) % Plt Count 366 (130-400) 10^3/c mm MPV 10.8 H (7.4-10.4) fL Neut % (Auto) 63.2 % Lymph % (Auto) 24.4 % [place] % (Auto) 11.3 % Eos % (Auto) 0.7 % Baso % (Auto) 0.2 % Neut # (Auto) 2.84 (1.8-7.7) 10^3/u L Lymph # (Auto) 1.1 (0.8-4.8) 10^3/u L [place] # (Auto) 0.5 (0.2-0.9) 10^3/u L Eos # (Auto) 0.0 (0.0-0.8) 10^3/u L Baso # (Auto) 0.0 (0.0-0.1) 10^3/u L Nucleated RBC % (a uto) 0 % Nucleated RBCs # 0.0 /100WBC D-Dimer 0.52 (0-0.59) ug/mIFE U Sodium 141 (136-145) mmol/L Potassium 3.7 (3.5-5.1) mmol/L Chloride 102 (98-107) mmol/L Carbon Dioxide 28 (22-29) mmol/L Anion Gap 14.7 (5-19) BUN 4 L (6-20) mg/dL Creatinine 0.6 (0.5-0.9) mg/dL GFR Calculation 103.4 (90-130) mL/min Glucose 125 H (65-115) mg/dL Calculated Osmolal ity 290 (285-295) mOsm/k g Lactate (0.5-2.2) mmol/L Calcium 8.4 L (8.5-10.5) mg/dL Total Bilirubin 0.2 (0.15-1.2) mg/dL AST 56 H (0-32) U/L ALT 40 H (0-33) U/L Alkaline Phosphata se 105 (35-105) IU/L Troponin T Baselin e (0-10) ng/L Troponin T 120 Min tolowa dee-ni' (0-10) ng/L Delta Troponin T (0-10) ABS# NT-Pro-B Natriuret Pep 348 H (0-125) pg/mL Total Protein 5.3 L (6.6-8.7) g/dL Albumin 3.2 L (3.5-5.2) g/dL Globulin 2.1 (1.3-4.6) g/dL Lipase 7 L (13-60) U/L Urine Color (Yellow) Urine Appearance (CLEAR) Urine pH (5-7) Ur Specific Gravit y (1.005-1.030) Urine Protein (Negative) Urine Glucose (UA) (Normal) Urine Ketones (Negative) Urine Blood (Negative) Urine Nitrate (Negative) Urine Bilirubin (Negative) Urine Urobilinogen (Negative) mg/dL Ur Leukocyte Caitie ase (Negative) Urine RBC (0-2) /hpf Urine WBC (0-5) /hpf Ur Squamous Epith Cells (0-5) /hpf Calcium Oxalate Cr ystal /hpf Amorphous Sediment Urine Bacteria (NONE) /hpf 10/17/20 10/17/20 10/17/20 Range/Units 18:45 19:45 20:38 WBC (4.0-10.0) 10^3/ uL RBC (4.1-5.3) 10^6/u L Hgb (11.5-15.3) g/dL Hct (37.0-47.0) % MCV (81-99) fL MCH (28.0-34.0) pg MCHC (30.0-36.0) g/dL RDW (12.1-15.1) % Plt Count (130-400) 10^3/c mm MPV (7.4-10.4) fL Neut % (Auto) % Lymph % (Auto) % [place] % (Auto) % Eos % (Auto) % Baso % (Auto) % Neut # (Auto) (1.8-7.7) 10^3/u L Lymph # (Auto) (0.8-4.8) 10^3/u L [place] # (Auto) (0.2-0.9) 10^3/u L Eos # (Auto) (0.0-0.8) 10^3/u L Baso # (Auto) (0.0-0.1) 10^3/u L Nucleated RBC % (a uto) % Nucleated RBCs # /100WBC D-Dimer (0-0.59) ug/mIFE U Sodium (136-145) mmol/L Potassium (3.5-5.1) mmol/L Chloride (98-107) mmol/L Carbon Dioxide (22-29) mmol/L Anion Gap (5-19) BUN (6-20) mg/dL Creatinine (0.5-0.9) mg/dL GFR Calculation (90-130) mL/min Glucose (65-115) mg/dL Calculated Osmolal ity (285-295) mOsm/k g Lactate 3.0 H (0.5-2.2) mmol/L Calcium (8.5-10.5) mg/dL Total Bilirubin (0.15-1.2) mg/dL AST (0-32) U/L ALT (0-33) U/L Alkaline Phosphata se (35-105) IU/L Troponin T Baselin e 15 H (0-10) ng/L Troponin T 120 Min tolowa dee-ni' 12.49 H (0-10) ng/L Delta Troponin T -2.51 L (0-10) ABS# NT-Pro-B Natriuret Pep (0-125) pg/mL Total Protein (6.6-8.7) g/dL Albumin (3.5-5.2) g/dL Globulin (1.3-4.6) g/dL Lipase (13-60) U/L Urine Color (Yellow) Urine Appearance (CLEAR) Urine pH (5-7) Ur Specific Gravit y (1.005-1.030) Urine Protein (Negative) Urine Glucose (UA) (Normal) Urine Ketones (Negative) Urine Blood (Negative) Urine Nitrate (Negative) Urine Bilirubin (Negative) Urine Urobilinogen (Negative) mg/dL Ur Leukocyte Caitie ase (Negative) Urine RBC (0-2) /hpf Urine WBC (0-5) /hpf Ur Squamous Epith Cells (0-5) /hpf Calcium Oxalate Cr ystal /hpf Amorphous Sediment Urine Bacteria (NONE) /hpf 12/25/20 Range/Units 20:38 WBC (4.0-10.0) 10^3/ uL RBC (4.1-5.3) 10^6/u L Hgb (11.5-15.3) g/dL Hct (37.0-47.0) % MCV (81-99) fL MCH (28.0-34.0) pg MCHC (30.0-36.0) g/dL RDW (12.1-15.1) % Plt Count (130-400) 10^3/c mm MPV (7.4-10.4) fL Neut % (Auto) % Lymph % (Auto) % [place] % (Auto) % Eos % (Auto) % Baso % (Auto) % Neut # (Auto) (1.8-7.7) 10^3/u L Lymph # (Auto) (0.8-4.8) 10^3/u L [place] # (Auto) (0.2-0.9) 10^3/u L Eos # (Auto) (0.0-0.8) 10^3/u L Baso # (Auto) (0.0-0.1) 10^3/u L Nucleated RBC % (a uto) % Nucleated RBCs # /100WBC D-Dimer (0-0.59) ug/mIFE U Sodium (136-145) mmol/L Potassium (3.5-5.1) mmol/L Chloride (98-107) mmol/L Carbon Dioxide (22-29) mmol/L Anion Gap (5-19) BUN (6-20) mg/dL Creatinine (0.5-0.9) mg/dL GFR Calculation (90-130) mL/min Glucose (65-115) mg/dL Calculated Osmolal ity (285-295) mOsm/k g Lactate (0.5-2.2) mmol/L Calcium (8.5-10.5) mg/dL Total Bilirubin (0.15-1.2) mg/dL AST (0-32) U/L ALT (0-33) U/L Alkaline Phosphata se (35-105) IU/L Troponin T Baselin e (0-10) ng/L Troponin T 120 Min tolowa dee-ni' (0-10) ng/L Delta Troponin T (0-10) ABS# NT-Pro-B Natriuret Pep (0-125) pg/mL Total Protein (6.6-8.7) g/dL Albumin (3.5-5.2) g/dL Globulin (1.3-4.6) g/dL Lipase (13-60) U/L Urine Color Straw (Yellow) Urine Appearance Hazy A (CLEAR) Urine pH 6.5 (5-7) Ur Specific Gravit y 1.000 L (1.005-1.030) Urine Protein Neg (Negative) Urine Glucose (UA) Norm (Normal) Urine Ketones Negative (Negative) Urine Blood Neg (Negative) Urine Nitrate Positive H (Negative) Urine Bilirubin Neg (Negative) Urine Urobilinogen Norm (Negative) mg/dL Ur Leukocyte Caitie ase Trace H (Negative) Urine RBC Rare (0-2) /hpf Urine WBC 15-25 H (0-5) /hpf Ur Squamous Epith Cells 0-4 H (0-5) /hpf Calcium Oxalate Cr ystal 0-4 H /hpf Amorphous Sediment Not Reportable Urine Bacteria 3+ H (NONE) /hpf Discharge Plan Discharge Patient Disposition: Home Clinical Impression: Chronic hypotension, Acute dehydration Metatarsal bone fracture Qualifiers: Encounter type: initial encounter Metatarsal bone: third Fracture type: closed Fracture alignment: displaced Laterality: left Qualified Code(s): S92.332A - Displaced fracture of third metatarsal bone, left foot, initial encounter for closed fracture Condition: Stable Prescriptions: New Macrobid 100 mg capsule 100 mg PO BID 5 Days Qty: 10 RF: 0 No Action alendronate 70 mg tablet See Rx Instructions .ROUTE .COMPLEX RF: 0 pregabalin [Lyrica] 150 mg capsule 150 mg PO BID RF: 0 lidocaine [Lidoderm] 5 % adhesive patch,medicated See Rx Instructions .ROUTE .COMPLEX RF: 0 (DME) cam boot See Rx Instructions .Route .MEDSUPPLY Qty: 1 RF: 0 sertraline 100 mg tablet 100 mg PO DAILY RF: 0 albuterol sulfate 2.5 mg /3 mL (0.083 %) Solution For Nebulization 2.5 mg INHALATION Q4H PRN (Reason: Shortness Of Breath) RF: 0 oxycodone-acetaminophen 7.5-325 mg Tablet 1 tab PO QID PRN (Reason: Pain) RF: 0 albuterol sulfate [Ventolin HFA] 90 mcg/actuation Hfa Aerosol Inhaler 2 puff INHALATION Q4H PRN (Reason: Shortness Of Breath) RF: 0 alprazolam 0.25 mg tablet 0.25 mg PO BID PRN (Reason: Anxiety) RF: 0 tramadol 50 mg tablet 50 mg PO TID PRN (Reason: PAIN) Qty: 0 RF: 0 Eliquis 5 mg tablet See Rx Instructions .ROUTE .COMPLEX Qty: 60 RF: 0 fludrocortisone 0.1 mg tablet See Rx Instructions .ROUTE .COMPLEX Qty: 12 RF: 0 promethazine 25 mg Tablet 25 mg PO Q6H PRN (Reason: Nausea) RF: 0 smmfckngje-qdddfrgfuxlrf-pqzj 50-300-40 mg Capsule 1 - 2 cap PO Q4H PRN (Reason: Headache) RF: 0 potassium chloride 20 mEq Tablet Extended Release 20 meq PO DAILY RF: 0 Discharge Orders: Discharge ED (Routine); Ordered 10/18/20 Ordered By: Yoel Birch Referrals: Paul Mike DO [Primary Care Provider] - Discharge Diet: Usual diet Discharge Activity: Resume usual activity Patient Instructions: Fractures - Metatarsal, Dehydration (ED), Foot Fracture in Adults (ED) Activity Restrictions/Additional Instructions: You have fractured another bone in your foot. Please make sure to follow-up with the orthopedic surgeon to discuss this again. Also make sure you drink lots of fluids because when you came in your blood pressure was low and after a liter of saline your blood pressure returned to normal. Even though you have this gastric bypass it is important that you drink lots of fluids to stay hydrated. Also follow-up with your primary care doctor in a few days to discuss your blood pressure as this fluctuates severely and has been a chronic problem for you. I have offered to admit you to monitor your blood pressure however you have declined. Please return to the ER at any time for admission. 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
[2020-10-17 19:39] LABS: Basophils % 0.2 %; Eosinophils % 0.7 %; Hematocrit 32.2 % (37.0-47.0); Hemoglobin 9.9 g/dL (11.5-15.3); Lymphocytes # 1.1 10^3/uL (0.8-4.8); Lymphocytes % 24.4 %; Mean Corpuscular HGB Conc 30.7 g/dL (30.0-36.0); Mean Corpuscular Hemoglobin 27.3 pg (28.0-34.0); Mean Platelet Volume 10.8 fL (7.4-10.4); Monocytes # 0.5 10^3/uL (0.2-0.9); Monocytes % 11.3 %; Neutrophils # 2.84 10^3/uL (1.8-7.7); Neutrophils % 63.2 %; Nucleated Red Blood Cells % 0 %; Platelet Count 366 10^3/cmm (130-400); Red Blood Count 3.62 10^6/uL (4.1-5.3); Red Cell Distribution Width 20.1 % (12.1-15.1); White Blood Count 4.5 10^3/uL (4.0-10.0)
[2020-10-17 19:45] LABS: D Dimer 0.52 ug/mIFEU (0-0.59)
[2020-10-17 19:56] LABS: Troponin(5th) Baseline 15 ng/L (0-10)
[2020-10-17 20:01] LABS: Alanine Aminotransferase 40 U/L (0-33); Albumin Level 3.2 g/dL (3.5-5.2); Alkaline Phosphatase 105 IU/L (35-105); Anion Gap 14.7 (5-19); Aspartate Amino Transferase 56 U/L (0-32); Blood Urea Nitrogen 4 mg/dL (6-20); Calcium 8.4 mg/dL (8.5-10.5); Carbon Dioxide 28 mmol/L (22-29); Chloride 102 mmol/L (98-107); Creatinine Clr Calc Pharmacy 97.0081; Globulin 2.1 g/dL (1.3-4.6); Glomerular Filtration Rate 103.4 mL/min (90-130); Glucose 125 mg/dL (65-115); Lipase 7 U/L (13-60); NT Pro B Type Natriuretic Pept 348 pg/mL (0-125); Osmolality Calculated 290 mOsm/kg (285-295); Potassium 3.7 mmol/L (3.5-5.1); Sodium 141 mmol/L (136-145); Total Bilirubin 0.2 mg/dL (0.15-1.2); Total Protein 5.3 g/dL (6.6-8.7)
--- NOTE | 2020-10-17 20:28 | ECG_ITS ---
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 Measurements Intervals [place] Rate: 93 P: 62 AR: 146 QRS: 52 QRSD: 86 T: 48 QT: 326 QTc: 407 Interpretive Statements SINUS RHYTHM POSSIBLE LEFT ATRIAL ENLARGEMENT [-0.1mV P WAVE IN V1/V2] Compared to ECG 10/17/2020 18:41:51 No significant changes Electronically Signed On 10-18-2020 16:59:12 TASSEL SNIPPER by Bruno Meraz M.D. [id number]
[2020-10-17 20:30] VITALS: BP 139/99; PULSE 96; RESP 16; O2SAT 96
[2020-10-17 21:01] LABS: Add Urine Microscopic? YES; Bilirubin Urine Neg (Negative); Blood Urine Neg (Negative); Glucose Urine UA Norm (Normal); Ketones Urine Negative (Negative); Leukocyte Esterase Urine Trace (Negative); Nitrate Urine Positive (Negative); Protein Urine Neg (Negative); Urine Appearance Hazy (CLEAR); Urine Color Straw (Yellow); Urobilinogen Urine Norm (Negative); pH Urine 6.5 (5-7)
[2020-10-17 21:03] LABS: Bacteria Urine 3+ /hpf; RBC Urine RARE /hpf (0-2); Squamous Epithelial Cell Urine 0-4 /hpf (0-5); WBC Urine 15-25 /hpf (0-5)
[2020-10-17 21:04] LABS: Add Urine Culture? Yes; Calcium Oxalate Crystals Urine 0-4 /hpf
[2020-10-17 21:07] LABS: Troponin 5 2HR 12.49 ng/L (0-10)
[2020-10-17 21:09] LABS: Troponin 5 2HR Delta -2.51 ABS# (0-10)
[2020-10-17 22:00] VITALS: BP 117/86; PULSE 82; RESP 16; O2SAT 95
[2020-10-17 23:00] VITALS: BP 143/88; PULSE 107; RESP 16; O2SAT 93
[2020-10-18] MEDS: nitrofurantoin SR (BID) 100 mg Capsule PO (01:07)
[2020-10-18 01:14] VITALS: BP 172/121; PULSE 122; RESP 16; TEMP 36.7; O2SAT 99
--- NOTE | 2020-10-20 16:34 | DCPLANNER ---
manager retail store had message to schedule a follow up appointment for patient with ortho. manager retail store called the ortho clinic, spoke with Eboni, gave clinic patients information. manager retail store was told that patients information would be printed and reviewed. Clinic will call patient with appointment information. manager retail store had message to schedule a follow up appointment with general surgery. manager retail store emailed both Mary and Sho at general surgery patients information. Patients information will be printed and reviewed. Clinic will call patient with appointment information.
--- NOTE | 2020-10-21 13:00 | DCPLANNER ---
Patient had a follow up appointment scheduled for 10.21.20 with ortho - patient did attend appointment. General surgery informed block and case maker that when clinic called patient to schedule a follow up appointment, that patient stated that she was already seeing a surgeon, did not want appointment.
== END 2020-10-18 01:16 | disposition home or self-care (01) ==
PROVIDERS: Emergency Provider Family Medicine; PCP Electrodiagnostic Medicine
DX: S92.332A Displaced fracture of third metatarsal bone, left foot, initial encounter for closed fracture (principal); I95.89 Other hypotension; E86.0 Dehydration; Z79.01 Long term (current) use of anticoagulants; I10 Essential (primary) hypertension; F17.210 Nicotine dependence, cigarettes, uncomplicated; W01.0XXA Fall on same level from slipping, tripping and stumbling without subsequent striking against object, initial encounter; Z79.899 Other long term (current) drug therapy; M79.672 Pain in left foot
CPT/HCPCS: 12345; 36600; 71045; 71275; 73620; 74177; 80053; 81001; 83605; 83690; 83880; 84484; 85025; 85378; 87040; 87077; 87086; 87186; 87205; 93005; 93970; 96361; 96374; 99283; 99284; J2405; J7030; Q9967

== ENCOUNTER → 2020-10-27 15:03 | Outpatient (BNVA) | payer MEDICARE, OTHER, SELFPAY | PROVIDERS: PCP Electrodiagnostic Medicine; Visit Provider Podiatrist Foot & Ankle Surgery | DX: S92.325A Nondisplaced fracture of second metatarsal bone, left foot, initial encounter for closed fracture (principal); S92.335A Nondisplaced fracture of third metatarsal bone, left foot, initial encounter for closed fracture; W19.XXXA Unspecified fall, initial encounter | CPT/HCPCS: 73630 ==

== ENCOUNTER → 2020-11-11 14:22 | Outpatient (BNVA) | payer MEDICARE, OTHER, SELFPAY | PROVIDERS: PCP Electrodiagnostic Medicine; Visit Provider Podiatrist Foot & Ankle Surgery | DX: Z47.89 Encounter for other orthopedic aftercare (principal); S92.332D Displaced fracture of third metatarsal bone, left foot, subsequent encounter for fracture with routine healing; X58.XXXD Exposure to other specified factors, subsequent encounter | CPT/HCPCS: 73630 ==

== ENCOUNTER 2020-11-11 15:30 | Emergency (ER) | payer MEDICARE, OTHER, SELFPAY ==
[2020-11-11 15:37] VITALS: BP 106/72; PULSE 87; RESP 18; TEMP 36.3; O2SAT 100; BMI 21.6
--- NOTE | 2020-11-11 16:49 | CTR_ITS ---
PROCEDURE INFORMATION: Exam: CT Head Without Contrast Exam date and time: 11/11/2020 4:52 PM Age: 55 years old Clinical indication: Syncope and collapse; Patient HX: Syncopal episodes/ falls x months; Additional info: Multiple falls/headache TECHNIQUE: Imaging protocol: Computed tomography of the head without contrast. Sagittal and coronal reformatted images were created and reviewed. Radiation optimization: All CT scans at this facility use at least one of these dose optimization techniques: automated exposure control; mA and/or kV adjustment per patient size (includes targeted exams where dose is matched to clinical indication); or iterative reconstruction. COMPARISON: CT head wo con* [id number] 08/30/2020 8:45 PM RADIATION DOSE METRICS: Total DLP (mGy-cm): 702.01 FINDINGS: Brain: No acute intracranial hemorrhage. No acute infarct. No intra-axial or extra-axial masses. Fields-white matter differentiation is preserved. No cerebral edema. No extra-axial fluid collections. No midline shift. No evidence for Chiari 1 malformation. No significant change in the brain compared with the previous study. Cerebral ventricles: No hydrocephalus. Bones/joints: No acute fracture. Paranasal sinuses: Visualized paranasal sinuses are clear. Mastoid air cells: Mastoid air cells are clear bilaterally. Orbital cavity: No acute abnormality in the visualized orbits. Soft tissues: The extracranial soft tissues are unremarkable. CT/CT head wo con* [id number] IMPRESSION: No acute abnormality of the brain. Radiation Dose CTDIVOL = (mGy): DLP = 702.01 (mGy-cm)
--- NOTE | 2020-11-11 16:49 | XR_ITS ---
WS: [id number] Portable AP upright chest, 11/11/2020 Clinical Data: dyspnea Comparison: Portable chest, 10/17/2020. Findings: No nodules, masses or effusions are seen. The heart is normal. The pulmonary vascularity is not increased. No pneumonia or pneumothorax is seen. XR/XR chest 1V portable [id number] Impression: Negative chest.
--- NOTE | 2020-11-11 16:53 | W.ED.COVID ---
HPI - COVID General: Chief Complaint: COVID symptoms Stated Complaint: CHEST CONGESTION, SHAKY legs, lightheaded Time Seen by Provider: 11/11/20 16:26 Triage information: Has fever, cough or shortness of breath. No known COVID + exposure last 14 days History of Present Illness: HPI Narrative: The patient is a 55-year-old female with past medical history gastric bypass with chronic volvulus on CT scan, autonomic dysfunction causing chronic dizziness and falls. She comes to the ER complaining of 2 weeks of increased fatigue, shortness of breath, and chest pain worse with deep breaths and movement. She also has a history of pulmonary embolism. Her symptoms are vague and she is a poor historian. She has frequent visits for dizziness and falls related to her autonomic dysfunction. COVID 19 common symptoms: positive dyspnea; negative non-productive cough, productive cough, fatigue, headache(s), throat pain, nasal congestion or diarrhea COVID 19 other sytmptoms: positive chest pain (With deep breaths and movement); negative confusion COVID Results: SARS-CoV-2 Antigen (Rapid) Negative (Negative) 11/11/20 17:30 11/11/20 SARS-CoV-2 RNA (RT-PCR) Not detected (NOT DETECTED) 07/01/20 11:24 07/01/20 Review of Systems General: Reports: 10 or more systems reviewed and unremarkable except in HPI and below Const: Denies: fatigue Eyes: Denies: change in vision, blurry vision or eye redness ENMT: Denies: throat pain, swelling of lips/tongue, ear or mastoid pain or nasal congestion Card: Reports: chest pain (With deep breaths and movement); Denies: palpitations, irregular heart rhythm, edema or orthopnea Resp: Reports: dyspnea; Denies: productive cough or non-productive cough GI: Denies: abdominal pain, diarrhea or GI cramping : Denies: flank pain, difficulty voiding, urinary frequency or urinary urgency Musc: Denies: neck pain, back pain, extremity pain, joint pain, joint redness, limited range of motion or muscle weakness Skin/Breast: Denies: rash, pruritus, erythema, skin pain or skin tenderness Neuro: Denies: headache(s), numbness in extremities, weakness in extremities, sensory changes, difficulty walking, dizziness, confusion or Slurred speech present Psych: Denies: anxiety or depression Endo: Denies: polyuria All/Imm: Denies: urticaria, throat swelling or tongue swelling PFSH ED PFSH: Medical History Cervical disc disorder with myelopathy of mid-cervical region Chronic back pain HTN (hypertension) HZV (herpes zoster virus) post herpetic neuralgia Smoker Surgical History History of lumbar spinal fusion (~2017) Dr. Elvin Leija, anterior L5-S1 fusion/fixation. History of wrist fracture R wrist fracture repair Hx of gastric bypass Hx of hysterectomy / BSO Status post cholecystectomy Family History Father Cancer Family history of myocardial infarction Mother Lung disease Dementia Social History Smoking and tobacco status: current every day smoker cigarettes Packs smoked per day: 0.75 Years cigarettes smoked: 35 [ Other cigarette details: Used to smoke more heavily ] Alcohol intake: never Household members: spouse Marital status: Current occupational status: disabled History of recent travel: No Physical Exam Const: COMMON NORMALS: no acute distress, average body habitus, patient oriented x3, no limitations, healthy appearing, alert and well nourished GENERAL APPEARANCE: cooperative, comfortable, well kempt and well developed ORIENTATION/CONSCIOUSNESS: Yes awake, Yes oriented to person, Yes oriented to place and Yes oriented to time HENMT: COMMON NORMALS: normocephalic, external ears normal and Normal external nose present HEAD & SCALP: normal to inspection and normocephalic NOSE: Normal external nose present EXTERNAL EAR: Yes external ears normal MOUTH: Normal oral and palatal mucosa present THROAT: posterior oropharynx normal Eye: COMMON NORMALS: Equal, round and reactive pupils present and EOMs intact bilaterally GENERAL EYE: appearance normal, both eyes and all related structures PUPIL: Yes Equal, round and reactive pupils present Neck/C-Spine: COMMON NORMALS: full ROM, no lymphadenopathy, no meningeal signs and no JVD GENERAL: Yes normal visual inspection Lymph: LYMPHATIC: no lymphadenopathy noted Chest: COMMONS NORMALS: normal inspection of the chest and normal palpation of entire chest wall Resp: COMMON NORMALS: normal respiratory effort, No retractions, No use of accessory muscles, clear to auscultation bilaterally and percussion normal EFFORT & INSPECTION: Yes able to speak in complete sentences AUSCULTATION: clear to auscultation bilaterally PERCUSSION: percussion normal Cardio: COMMON NORMALS: no JVD, regular rate, regular rhythm, S1 normal heart sound present, S2 normal heart sound present and Peripheral pulses 2+ throughout RATE: regular rate RHYTHM: regular rhythm HEART SOUNDS: S1 normal heart sound present and S2 normal heart sound present PERIPHERAL PULSES: Peripheral pulses 2+ throughout GI: COMMON NORMALS: Normal to inspection, nondistended, normoactive bowel sounds present, Soft to palpation, non-tender and no masses INSPECTION: Yes normal to inspection PALPATION: Yes Soft to palpation : COMMON NORMALS: Yes no CVA tenderness BLADDER/KIDNEY EXAM: Yes no CVA tenderness Back/Pelvis: COMMON NORMALS: no CVA tenderness, thoracic and lumbar spine normal to inspection, no thoracic nor lumbar tenderness and thoraco-lumbar ROM normal Extremity: COMMON NORMALS: normal to inspection, full ROM, capillary refill normal, no joint enlargement and no pedal edema GENERAL: Yes normal exam except as noted Neuro: COMMON NORMALS: patient oriented x3, CN's II-XII intact bilaterally, moves all extremities, no focal motor deficits, no sensory deficits noted and gait normal SENSORIUM/ORIENTATION: Yes alert, Yes oriented to person, Yes oriented to place and Yes oriented to time MENINGEAL SIGNS: Yes no meningeal signs Psych: COMMON NORMALS: mental status grossly normal, Normal thought process present, cooperative, normal affect and speech normal APPEARANCE: Yes well kempt ATTITUDE: Yes calm SPEECH: Yes normal speech THOUGHT PROCESS: Normal thought process present Skin: COMMON NORMALS: no rashes or lesions noted GENERAL SKIN EXAM: no rashes or lesions noted Course Vital Signs: Vital signs: Vital Signs Temperature 97.3 F L 11/11/20 15:37 Pulse Rate 123 H 11/11/20 22:08 Respiratory Rate 12 11/11/20 22:08 Blood Pressure 146/96 11/11/20 20:29 Pulse Oximetry 99 11/11/20 22:08 MDM - COVID MDM Narrative: Medical decision making narrative: The patient is a 55-year-old female with autonomic dysfunction. She came in for dizziness, fatigue, and chest pain with deep breaths. She also has a history of pulmonary embolism. She was worked up thoroughly and her lactic acid came back surprisingly above 4. Only infection seen is a urinary tract infection. She was given a liter of fluids and her lactic acid improved to a normal level. It is unclear if the original lactic acid was accurate or possibly left out but unknown. She has a normal white count and a very mild urinary tract infection on her urinalysis. That would unlikely cause a lactic acid of 4. While she was being worked up her heart rate elevated to 115 bpm sinus tachycardia. She says she has this problem from time to time possibly related to her autonomic dysfunction however it is unknown. I discussed observing her overnight and she accepted. Discussed with Dr. Carlos who accepts for observation for dehydration, UTI, and IV fluids. He will order CT abdomen tomorrow. She has a chronic volvulus related to her gastric bypass surgery and she is not complaining of abdominal pain at all today nor is she tender at all. This is again an unlikely cause of her problems but Dr. Carlos will follow it. Lab Data: Labs: Lab Results 11/11/20 11/11/20 11/11/20 Range/Units 17:30 17:53 17:53 WBC 5.7 (4.0-10.0) 10^3/ uL RBC 4.11 (4.1-5.3) 10^6/u L Hgb 11.8 (11.5-15.3) g/dL Hct 37.4 (37.0-47.0) % MCV 91.0 (81-99) fL MCH 28.7 (28.0-34.0) pg MCHC 31.6 (30.0-36.0) g/dL RDW 19.2 H (12.1-15.1) % Plt Count 335 (130-400) 10^3/c mm MPV 10.6 H (7.4-10.4) fL Neut % (Auto) 66.2 % Lymph % (Auto) 24.0 % Billings % (Auto) 7.9 % Eos % (Auto) 1.2 % Baso % (Auto) 0.5 % Neut # (Auto) 3.77 (1.8-7.7) 10^3/u L Lymph # (Auto) 1.4 (0.8-4.8) 10^3/u L Billings # (Auto) 0.5 (0.2-0.9) 10^3/u L Eos # (Auto) 0.1 (0.0-0.8) 10^3/u L Baso # (Auto) 0.0 (0.0-0.1) 10^3/u L Nucleated RBC % (a uto) 0 % Nucleated RBCs # 0.0 /100WBC D-Dimer 0.40 (0-0.59) ug/mIFE U Sodium (136-145) mmol/L Potassium (3.5-5.1) mmol/L Chloride (98-107) mmol/L Carbon Dioxide (22-29) mmol/L Anion Gap (5-19) BUN (6-20) mg/dL Creatinine (0.5-0.9) mg/dL GFR Calculation Glucose (65-115) mg/dL Calculated Osmolal ity (285-295) mOsm/k g Lactate (0.5-2.2) mmol/L Calcium (8.5-10.5) mg/dL Total Bilirubin (0.15-1.2) mg/dL AST (0-32) U/L ALT (0-33) U/L Alkaline Phosphata se (35-105) IU/L Creatine Kinase (26-192) U/L Troponin T Baselin e (0-10) ng/L Troponin T 120 Min mentasta (0-10) ng/L Delta Troponin T (0-10) ABS# NT-Pro-B Natriuret Pep (0-125) pg/mL Total Protein (6.6-8.7) g/dL Albumin (3.5-5.2) g/dL Globulin (1.3-4.6) g/dL Urine Color (Yellow) Urine Appearance (CLEAR) Urine pH (5-7) Ur Specific Gravit y (1.005-1.030) Urine Protein (Negative) Urine Glucose (UA) (Normal) Urine Ketones (Negative) Urine Blood (Negative) Urine Nitrate (Negative) Urine Bilirubin (Negative) Urine Urobilinogen (Negative) mg/dL Ur Leukocyte Caitie ase (Negative) Urine RBC (0-2) /hpf Urine WBC (0-5) /hpf Ur Squamous Epith Cells (0-5) /hpf Amorphous Sediment Urine Bacteria (NONE) /hpf SARS-CoV-2 Ag (Rap id) Negative (Negative) 11/11/20 11/11/20 11/11/20 Range/Units 17:53 17:53 17:53 WBC (4.0-10.0) 10^3/ uL RBC (4.1-5.3) 10^6/u L Hgb (11.5-15.3) g/dL Hct (37.0-47.0) % MCV (81-99) fL MCH (28.0-34.0) pg MCHC (30.0-36.0) g/dL RDW (12.1-15.1) % Plt Count (130-400) 10^3/c mm MPV (7.4-10.4) fL Neut % (Auto) % Lymph % (Auto) % Billings % (Auto) % Eos % (Auto) % Baso % (Auto) % Neut # (Auto) (1.8-7.7) 10^3/u L Lymph # (Auto) (0.8-4.8) 10^3/u L Billings # (Auto) (0.2-0.9) 10^3/u L Eos # (Auto) (0.0-0.8) 10^3/u L Baso # (Auto) (0.0-0.1) 10^3/u L Nucleated RBC % (a uto) % Nucleated RBCs # /100WBC D-Dimer (0-0.59) ug/mIFE U Sodium 134 L (136-145) mmol/L Potassium 3.8 (3.5-5.1) mmol/L Chloride 99 (98-107) mmol/L Carbon Dioxide 20 L (22-29) mmol/L Anion Gap 18.8 (5-19) BUN 5 L (6-20) mg/dL Creatinine 0.7 (0.5-0.9) mg/dL GFR Calculation Not Reportable Glucose 89 (65-115) mg/dL Calculated Osmolal ity 275 L (285-295) mOsm/k g Lactate 4.2 H* (0.5-2.2) mmol/L Calcium 8.2 L (8.5-10.5) mg/dL Total Bilirubin 0.4 (0.15-1.2) mg/dL AST 107 H (0-32) U/L ALT 56 H (0-33) U/L Alkaline Phosphata se 118 H (35-105) IU/L Creatine Kinase 110 (26-192) U/L Troponin T Baselin e 19 H (0-10) ng/L Troponin T 120 Min mentasta (0-10) ng/L Delta Troponin T (0-10) ABS# NT-Pro-B Natriuret Pep 457 H (0-125) pg/mL Total Protein 5.6 L (6.6-8.7) g/dL Albumin 2.7 L (3.5-5.2) g/dL Globulin 2.9 (1.3-4.6) g/dL Urine Color (Yellow) Urine Appearance (CLEAR) Urine pH (5-7) Ur Specific Gravit y (1.005-1.030) Urine Protein (Negative) Urine Glucose (UA) (Normal) Urine Ketones (Negative) Urine Blood (Negative) Urine Nitrate (Negative) Urine Bilirubin (Negative) Urine Urobilinogen (Negative) mg/dL Ur Leukocyte Caitie ase (Negative) Urine RBC (0-2) /hpf Urine WBC (0-5) /hpf Ur Squamous Epith Cells (0-5) /hpf Amorphous Sediment Urine Bacteria (NONE) /hpf SARS-CoV-2 Ag (Rap id) (Negative) 11/11/20 11/11/20 11/11/20 Range/Units 20:00 20:14 21:54 WBC (4.0-10.0) 10^3/ uL RBC (4.1-5.3) 10^6/u L Hgb (11.5-15.3) g/dL Hct (37.0-47.0) % MCV (81-99) fL MCH (28.0-34.0) pg MCHC (30.0-36.0) g/dL RDW (12.1-15.1) % Plt Count (130-400) 10^3/c mm MPV (7.4-10.4) fL Neut % (Auto) % Lymph % (Auto) % Billings % (Auto) % Eos % (Auto) % Baso % (Auto) % Neut # (Auto) (1.8-7.7) 10^3/u L Lymph # (Auto) (0.8-4.8) 10^3/u L Billings # (Auto) (0.2-0.9) 10^3/u L Eos # (Auto) (0.0-0.8) 10^3/u L Baso # (Auto) (0.0-0.1) 10^3/u L Nucleated RBC % (a uto) % Nucleated RBCs # /100WBC D-Dimer (0-0.59) ug/mIFE U Sodium (136-145) mmol/L Potassium (3.5-5.1) mmol/L Chloride (98-107) mmol/L Carbon Dioxide (22-29) mmol/L Anion Gap (5-19) BUN (6-20) mg/dL Creatinine (0.5-0.9) mg/dL GFR Calculation Glucose (65-115) mg/dL Calculated Osmolal ity (285-295) mOsm/k g Lactate 1.7 (0.5-2.2) mmol/L Calcium (8.5-10.5) mg/dL Total Bilirubin (0.15-1.2) mg/dL AST (0-32) U/L ALT (0-33) U/L Alkaline Phosphata se (35-105) IU/L Creatine Kinase (26-192) U/L Troponin T Baselin e (0-10) ng/L Troponin T 120 Min mentasta 15.96 H (0-10) ng/L Delta Troponin T -3.04 L (0-10) ABS# NT-Pro-B Natriuret Pep (0-125) pg/mL Total Protein (6.6-8.7) g/dL Albumin (3.5-5.2) g/dL Globulin (1.3-4.6) g/dL Urine Color Yellow (Yellow) Urine Appearance Hazy A (CLEAR) Urine pH 6.0 (5-7) Ur Specific Gravit y 1.005 (1.005-1.030) Urine Protein Neg (Negative) Urine Glucose (UA) Norm (Normal) Urine Ketones Negative (Negative) Urine Blood Neg (Negative) Urine Nitrate Positive H (Negative) Urine Bilirubin Neg (Negative) Urine Urobilinogen Norm (Negative) mg/dL Ur Leukocyte Caitie ase Negative (Negative) Urine RBC 0-4 H (0-2) /hpf Urine WBC 5-10 H (0-5) /hpf Ur Squamous Epith Cells 0-4 H (0-5) /hpf Amorphous Sediment Not Reportable Urine Bacteria 4+ H (NONE) /hpf SARS-CoV-2 Ag (Rap id) (Negative) COVID Results: SARS-CoV-2 Antigen (Rapid) Negative (Negative) 11/11/20 17:30 11/11/20 SARS-CoV-2 RNA (RT-PCR) Not detected (NOT DETECTED) 07/01/20 11:24 07/01/20 Discharge Plan Discharge Patient Disposition: Placed in Observation Clinical Impression: Dehydration, UTI (urinary tract infection) Coding Level of Care Code ED Contact Lens Cutter 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
--- NOTE | 2020-11-11 16:55 | CTR_ITS ---
PROCEDURE INFORMATION: Exam: CT Cervical Spine Without Contrast Exam date and time: 11/11/2020 4:57 PM Age: 55 years old Clinical indication: Injury or trauma; Fall; Blunt trauma; Prior surgery; Surgery type: Dental; Additional info: Falls/pain TECHNIQUE: Imaging protocol: Computed tomography images of the cervical spine without contrast. Sagittal, oblique axial, and coronal reformatted images were created and reviewed. Radiation optimization: All CT scans at this facility use at least one of these dose optimization techniques: automated exposure control; mA and/or kV adjustment per patient size (includes targeted exams where dose is matched to clinical indication); or iterative reconstruction. COMPARISON: 1. CT cervical spin wo con* [id number] 08/30/2020 8:[address] Cervical Spine wo* [id number] 10/15/2019 11:41:56 AM RADIATION DOSE METRICS: Total DLP (mGy-cm): 368.9 FINDINGS: Bones/joints: Stable postsurgical changes in the anterior mandible. Vertebral body height is maintained. No subluxation. Normal bone mineralization. Reversal of normal cervical lordosis. 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 No acute fracture. Discs/Spinal canal/Neural foramina: Mild degenerative changes in the visualized spine. Epidural space: No evidence for an epidural hematoma. Thyroid: Multiple low-density nodules in the thyroid are stable dating back to 10/15/2019. The largest measures 8.3 x 7.4 mm (series 3, image 62). Lungs: Visualized lungs are clear. Calcified granuloma in the the left upper lobe. Soft tissues: No soft tissue swelling. No radiopaque foreign body. CT/CT cervical spin wo con* [id number] IMPRESSION: 1. No acute fracture of the cervical spine. 2. Mild degenerative changes in the visualized spine. 3. Stable low-density nodules in the thyroid gland dating back to 10/15/2019. No follow-up is recommended. 4. Incidental/nonacute findings are listed in the report. COMMENTS: Consistent with the [employer]'s Incidental Findings Committee white paper (J Am Laron Radiol 2015): In patients aged 35 years and older with an incidental thyroid nodule equal to or greater than 1.[address], MRI or extrathyroidal US, further evaluation with dedicated thyroid US is recommended for patients with normal life expectancy and without comorbidities. For smaller nodules without suspicious features, no further evaluation or follow up is recommended. Radiation Dose CTDIVOL = (mGy): DLP = 368.9 (mGy-cm)
[2020-11-11] MEDS: acetaminophen 325 mg Tablet 650 MG PO (17:33)
[2020-11-11] MEDS: sodium chloride 0.9% 1,000 ML 999 ML IV (17:33)
[2020-11-11 18:04] LABS: Basophils % 0.5 %; Eosinophils # 0.1 10^3/uL (0.0-0.8); Eosinophils % 1.2 %; Hematocrit 37.4 % (37.0-47.0); Hemoglobin 11.8 g/dL (11.5-15.3); Lymphocytes # 1.4 10^3/uL (0.8-4.8); Mean Corpuscular HGB Conc 31.6 g/dL (30.0-36.0); Mean Corpuscular Hemoglobin 28.7 pg (28.0-34.0); Mean Platelet Volume 10.6 fL (7.4-10.4); Monocytes # 0.5 10^3/uL (0.2-0.9); Monocytes % 7.9 %; Neutrophils # 3.77 10^3/uL (1.8-7.7); Neutrophils % 66.2 %; Nucleated Red Blood Cells % 0 %; Platelet Count 335 10^3/cmm (130-400); Red Blood Count 4.11 10^6/uL (4.1-5.3); Red Cell Distribution Width 19.2 % (12.1-15.1); White Blood Count 5.7 10^3/uL (4.0-10.0)
[2020-11-11 18:36] LABS: SARS Covid-2 Antigen Negative (Negative)
[2020-11-11 18:41] VITALS: O2SAT 100
[2020-11-11 18:46] LABS: Troponin(5th) Baseline 19 ng/L (0-10)
[2020-11-11 18:52] LABS: NT Pro B Type Natriuretic Pept 457 pg/mL (0-125)
[2020-11-11 18:53] LABS: Lactate (Lactic Acid level) 4.2 mmol/L (0.5-2.2)
[2020-11-11 19:49] VITALS: BP 161/109; PULSE 102; RESP 12; O2SAT 98
[2020-11-11 20:11] LABS: Chloride 99 mmol/L (98-107); Creatine Phosphokinase 110 U/L (26-192); Creatinine Clr Calc Pharmacy 80.8901; Globulin 2.9 g/dL (1.3-4.6); Glucose 89 mg/dL (65-115); Total Bilirubin 0.4 mg/dL (0.15-1.2)
[2020-11-11 20:29] VITALS: BP 146/96; PULSE 124; RESP 16; O2SAT 100
[2020-11-11 20:42] LABS: Troponin 5 2HR 15.96 ng/L (0-10)
--- NOTE | 2020-11-11 20:46 | CTR_ITS ---
PROCEDURE INFORMATION: Exam: CT Angiography Chest With Contrast Exam date and time: 11/11/2020 9:01 PM Age: 55 years old Clinical indication: Shortness of breath; Chest pain; Patient HX: Cp with SOB. History of pe. ; Additional info: R/O pe TECHNIQUE: Imaging protocol: Computed tomographic angiography of the chest with intravenous contrast. 3D rendering (Not supervised by radiologist): MIP and/or 3D reconstructed images were created by the technologist. Radiation optimization: All CT scans at this facility use at least one of these dose optimization techniques: automated exposure control; mA and/or kV adjustment per patient size (includes targeted exams where dose is matched to clinical indication); or iterative reconstruction. Contrast material: OMNI 350; Contrast volume: 71 ml; Contrast route: INTRAVENOUS (IV); COMPARISON: CT angio chest w abd pel w con 10/17/2020 7:15 PM RADIATION DOSE METRICS: Total DLP (mGy-cm): 512.46 FINDINGS: Pulmonary arteries: No filling defects in the pulmonary arteries to suggest pulmonary embolism. Aorta: No evidence for aortic aneurysm or aortic dissection. Thyroid: Multiple low-density nodules in the visualized thyroid are stable, the largest measures 0.8 x 1.2 cm (series 2, image 43). Lungs: Tracheobronchial structures are patent. Stable linear scarring in the right middle lobe and both right and left lower lobes. Stable calcified granuloma in the left upper lobe. No focal consolidation. No pulmonary edema. Pleural space: No pneumothorax. No pleural effusion. Heart: The heart is normal in size. No pericardial effusion. Mediastinal space: The esophagus is unremarkable. No mediastinal hematoma. No pneumomediastinum. Lymph nodes: No lymphadenopathy. Liver: Diffuse, markedly decreased attenuation in the visualized liver. Findings are stable and consistent with severe fatty infiltration. Gallbladder and bile ducts: Stable findings consistent with a previous cholecystectomy. Stable dilatation of the visualized biliary ducts, not unexpected in a patient who has had a prior cholecystectomy. Pancreas: The visualized pancreas is unremarkable. No pancreatic ductal dilatation. Spleen: Multiple calcified granulomas in the spleen. Adrenals: The right and left adrenal glands are unremarkable. Kidneys and ureters: The visualized right and left kidneys are unremarkable. Stomach and bowel: Patient has had a previous gastric bypass. Bones/joints: No acute fracture. Soft tissues: Mild body wall edema. CT/CT angio chest PE protcl [id number] IMPRESSION: 1. No acute cardiopulmonary process. 2. No evidence for pulmonary embolism. 3. Stable severe fatty infiltration of the visualized liver. 4. Mild body wall edema. 5. Multiple low-density nodules in the visualized thyroid are stable. No follow-up is recommended. 6. Incidental/nonacute findings are listed in the report. COMMENTS: Consistent with the [employer]'s Incidental Findings Committee white paper (J Am Laron Radiol 2015): In patients aged 35 years and older with an incidental thyroid nodule equal to or greater than 1.[address], MRI or extrathyroidal US, further evaluation with dedicated thyroid US is recommended for patients with normal life expectancy and without comorbidities. For smaller nodules without suspicious features, no further evaluation or follow up is recommended. Radiation Dose CTDIVOL = (mGy): DLP = 512.46 (mGy-cm)
[2020-11-11] MEDS: piperacillin-tazobactam 3.375 GM in sodium chloride 0.9% (plus) 50 ML IV (20:51)
[2020-11-11 20:57] LABS: Troponin 5 2HR Delta -3.04 ABS# (0-10)
[2020-11-11 21:02] LABS: Urine Color Yellow (Yellow)
[2020-11-11 21:03] LABS: Add Urine Culture? Yes; Add Urine Microscopic? YES; Bacteria Urine 4+ /hpf; Bilirubin Urine Neg (Negative); Blood Urine Neg (Negative); Glucose Urine UA Norm (Normal); Ketones Urine Negative (Negative); Leukocyte Esterase Urine Negative (Negative); Nitrate Urine Positive (Negative); Protein Urine Neg (Negative); RBC Urine 0-4 /hpf (0-2); Specific Gravity, Urine 1.005 (1.005-1.030); Squamous Epithelial Cell Urine 0-4 /hpf (0-5); Urine Appearance Hazy (CLEAR); Urobilinogen Urine Norm (Negative)
[2020-11-11] MEDS: iohexol 350 mg/mL 100 mL Btl IV (21:10)
[2020-11-11] MEDS: vancomycin 1,000 MG in sodium chloride 0.9% 250 ML 250 MG IV (21:45)
[2020-11-11 22:07] LABS: Potassium 3.8 mmol/L (3.5-5.1); Sodium 134 mmol/L (136-145)
[2020-11-11 22:08] VITALS: PULSE 123; RESP 12; O2SAT 99
[2020-11-11 22:09] LABS: Alanine Aminotransferase 56 U/L (0-33); Anion Gap 18.8 (5-19); Aspartate Amino Transferase 107 U/L (0-32); Blood Urea Nitrogen 5 mg/dL (6-20); Calcium 8.2 mg/dL (8.5-10.5); Carbon Dioxide 20 mmol/L (22-29); Osmolality Calculated 275 mOsm/kg (285-295); Total Protein 5.6 g/dL (6.6-8.7)
[2020-11-11 22:10] LABS: Albumin Level 2.7 g/dL (3.5-5.2); Alkaline Phosphatase 118 IU/L (35-105)
[2020-11-11 22:14] LABS: Lactate (Lactic Acid level) 1.7 mmol/L (0.5-2.2)
--- NOTE | 2020-11-11 22:53 | P.HP_ITS ---
Providers/Chief Complaint Primary Care Provider: Paul Mike DO Chief Complaint: CHEST CONGESTION, SEIZURE-LIKE ACTIVITY History of Present Illness Sj Land is a 55 year old female Medications/Allergies Home Medications Medication Instructions Recorded Confirmed Last Taken Type alendronate 70 mg tablet See Rx Instructions .ROUTE .COMPLEX 11/12/19 11/11/20 08/27/20 History lidocaine 5 % topical patch See Rx Instructions .ROUTE .COMPLEX 11/12/19 11/11/20 07/08/20 History pregabalin 150 mg capsule 150 mg PO BID 11/12/19 11/11/20 08/30/20 09:00 History sertraline 100 mg tablet 100 mg PO DAILY 12/20/19 11/11/20 08/30/20 09:00 History qitegeyali-yuzyknpqpstbz-rfay 1 - 2 cap PO Q4H PRN 01/17/20 11/11/20 08/30/20 History potassium chloride 20 meq PO DAILY 01/17/20 11/11/20 08/06/20 08:00 History promethazine 25 mg PO Q6H PRN 01/17/20 11/11/20 08/30/20 09:00 History albuterol sulfate 2.5 mg INHALATION Q4H PRN 01/22/20 11/11/20 Unknown History albuterol sulfate [Ventolin HFA] 2 puff INHALATION Q4H PRN 01/22/20 11/11/20 Unknown History oxycodone-acetaminophen 1 tab PO QID PRN 01/22/20 11/11/20 08/30/20 15:00 History alprazolam 0.25 mg PO BID PRN 08/07/20 11/11/20 08/30/20 09:00 History apixaban [Eliquis] See Rx Instructions .ROUTE 09/03/20 11/11/20 Unknown Rx .COMPLEX #60 tab fludrocortisone See Rx Instructions .ROUTE 09/03/20 11/11/20 Unknown Rx .COMPLEX #12 tab tramadol 50 mg PO TID PRN #0 tab 09/03/20 11/11/20 08/30/20 09:00 Rx cam boot #1 ea 10/01/20 11/11/20 Unknown Rx Allergies Allergy/AdvReac Type Severity Reaction Status Date / Time No Known Allergies Allergy Verified 11/11/20 15:41 PFSH Acute PFSH: Medical History Cervical disc disorder with myelopathy of mid-cervical region Chronic back pain HTN (hypertension) HZV (herpes zoster virus) post herpetic neuralgia Smoker Surgical History History of lumbar spinal fusion (~2017) Dr. Elvin Leija, anterior L5-S1 fusion/fixation. History of wrist fracture R wrist fracture repair Hx of gastric bypass Hx of hysterectomy / BSO Status post cholecystectomy Family History Father Cancer Family history of myocardial infarction Mother Lung disease Dementia Social History Smoking and tobacco status: current every day smoker cigarettes Packs smoked per day: 0.75 Years cigarettes smoked: 35 [ Other cigarette details: Used to smoke more heavily ] Alcohol intake: never Household members: spouse Marital status: Current occupational status: disabled History of recent travel: No Vitals/I&O/Wt Last Vital Signs Temp 97.3 F L 11/11/20 15:37 Pulse 123 H 11/11/20 22:08 Resp 12 11/11/20 22:08 BP 146/96 11/11/20 20:29 Pulse Ox 99 11/11/20 22:08 Weight last 48 hrs Weight 58.967 kg Data : 11/11/20 17:53 11/11/20 17:53 Coding Level of Care Code Acute Equipment Operator/Laborer 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
--- NOTE | 2020-11-11 23:51 | PM.HP ---
Providers/Chief Complaint Primary Care Provider: Paul Mike DO Chief Complaint: CHEST CONGESTION, SEIZURE-LIKE ACTIVITY History of Present Illness Sj Land is a 55 year old female who presented to the hospital for chief complaint of fatigue. Patient is stating that her blood pressure fluctuates significantly at home highest reading 180 mmHg and lowest 70 to 80s millimeters mercury, she has been taking fludrocortisone at home for her symptoms as well. With this fluctuation of blood pressure she feels tired and fatigued and sometimes with abrupt drop in blood pressure she would feel some muscle cramps in her left leg otherwise she never experienced any chest pain, falls, strokelike symptoms, blurry vision, weakness in her arms or legs, urine incontinence, back pain, dizziness or syncope. She has also been experiencing chest discomfort around left lateral region of sternum which she is able to pinpoint, it is reproducible gets worse on any kind of movement. Diagnostics in the ER revealed sinus tachycardia, she was given 1 L normal saline bolus which improved her heart rate, at the time of my evaluation her heart rate was in 80s, sinus rhythm, first lactic acid high for, no source of infection was identified, patient was not complaining of any abdominal pain, UTI symptoms, after 1 L bolus her lactic acid improved she was not septic, nor hypoxic. Patient did not endorse diarrhea abdominal pain blood in stool. No recent use of albuterol. Questionable validity of lab drawn that showed high lactic acid with significant improvement with just 1 L normal saline does not correlate clinically. At the time my evaluation patient was not complaining of any active complaints, her blood pressure was 101/60, no active shortness of breath or neurological symptoms. CTA ruled out PE head and neck CT did not reveal any acute pathology. Review of Systems Const: Reports: chills, body aches, fatigue and malaise; Denies: fever(s) Eyes: Denies: change in vision ENMT: Denies: throat pain Card: Reports: chest pain; Denies: syncope, pre-syncope, dyspnea on exertion or orthopnea Resp: Reports: pain on inspiration; Denies: dyspnea GI: Denies: abdominal pain : Denies: flank pain Musc: Denies: neck pain Skin/Breast: Denies: rash Neuro: Denies: headache(s) Psych: Reports: anxiety Endo: Denies: polyuria Miguel/Lymph: Denies: easy bruising All/Imm: Denies: urticaria Medications/Allergies Home Medications Medication Instructions Recorded Confirmed Last Taken Type alendronate 70 mg tablet See Rx Instructions .ROUTE .COMPLEX 11/12/19 11/11/20 08/27/20 History lidocaine 5 % topical patch See Rx Instructions .ROUTE .COMPLEX 11/12/19 11/11/20 07/08/20 History pregabalin 150 mg capsule 150 mg PO BID 11/12/19 11/11/20 08/30/20 09:00 History sertraline 100 mg tablet 100 mg PO DAILY 12/20/19 11/11/20 08/30/20 09:00 History sjqaluqrgx-bopwewkzrxwjr-dzpq 1 - 2 cap PO Q4H PRN 01/17/20 11/11/20 08/30/20 History potassium chloride 20 meq PO DAILY 01/17/20 11/11/20 08/06/20 08:00 History promethazine 25 mg PO Q6H PRN 01/17/20 11/11/20 08/30/20 09:00 History albuterol sulfate 2.5 mg INHALATION Q4H PRN 01/22/20 11/11/20 Unknown History albuterol sulfate [Ventolin HFA] 2 puff INHALATION Q4H PRN 01/22/20 11/11/20 Unknown History oxycodone-acetaminophen 1 tab PO QID PRN 01/22/20 11/11/20 08/30/20 15:00 History alprazolam 0.25 mg PO BID PRN 08/07/20 11/11/20 08/30/20 09:00 History apixaban [Eliquis] See Rx Instructions .ROUTE 09/03/20 11/11/20 Unknown Rx .COMPLEX #60 tab fludrocortisone See Rx Instructions .ROUTE 09/03/20 11/11/20 Unknown Rx .COMPLEX #12 tab tramadol 50 mg PO TID PRN #0 tab 09/03/20 11/11/20 08/30/20 09:00 Rx cam boot #1 ea 10/01/20 11/11/20 Unknown Rx Allergies Allergy/AdvReac Type Severity Reaction Status Date / Time No Known Allergies Allergy Verified 11/11/20 15:41 PFSH Acute PFSH: Medical History Cervical disc disorder with myelopathy of mid-cervical region Chronic back pain HTN (hypertension) HZV (herpes zoster virus) post herpetic neuralgia Smoker Surgical History History of lumbar spinal fusion (~2017) Dr. Elvin Leija, anterior L5-S1 fusion/fixation. History of wrist fracture R wrist fracture repair Hx of gastric bypass Hx of hysterectomy / BSO Status post cholecystectomy Family History Father Cancer Family history of myocardial infarction Mother Lung disease Dementia Social History Smoking and tobacco status: current every day smoker cigarettes Packs smoked per day: 0.75 Years cigarettes smoked: 35 [ Other cigarette details: Used to smoke more heavily ] Alcohol intake: never Household members: spouse Marital status: Current occupational status: disabled History of recent travel: No Vitals/I&O/Wt Last Vital Signs Temp 97.3 F L 11/11/20 15:37 Pulse 123 H 11/11/20 22:08 Resp 12 11/11/20 22:08 BP 146/96 11/11/20 20:29 Pulse Ox 99 11/11/20 22:08 Weight last 48 hrs Weight 58.967 kg Physical Exam Narrative: EXAM NARRATIVE: Middle-age female who was lying comfortable in her bed without any active complaints at the time my evaluation Saturating well on room air Reproducible chest discomfort left sternal border Appropriate mood and affect GCS 15 no neurological deficit EOMI, PERRLA No signs of dehydration Moist mucous membranes S1, S2 sinus rhythm heart rate 80 No acute respite distress no adventitious rhonchi or crackles Abdomen soft nontender bowel sound present Lower extremity no edema gangrene ulcer No skin ulcer or gangrene is changes no joint swelling Data : 11/11/20 17:53 11/11/20 17:53 A&P Assessment and plan (1) Fatigue: Patient presented with chief complaint of fatigue Sinus tachycardia, she was saturating well on room air Her symptoms mostly get aggravated with fluctuation in blood pressure CTA ruled out PE Head and neck CT rule out acute pathologies No signs of cauda equina She was given 1 L normal saline bolus for high lactic acid of 4 Lactic acid does not correlate clinically which showed improvement with just 1 L normal saline however she has no signs of dehydration, sepsis, vomiting, UTI, abdominal pain, hematochezia, no recent use of albuterol, she was not hypoxic, I did review her previous CT abdomen which was concerning for postsurgical changes, however clinically patient did not complain of any abdominal pain her abdomen was soft, she was not complaining of any blood in stool or changes in her bowel movement, her clinical picture was not consistent with mesenteric ischemia, patient had no signs of clinical dehydration Patient was given broad-spectrum antibiotics after abnormal lactic acidemia I discussed all my findings in detail with the patient, treatment options, all of her questions were answered to her satisfaction, I do suspect POTS and autonomic dysfunction for her fluctuation in blood pressure, requested patient to maintain a blood pressure log and follow-up with PCP, at this point I do not suspect press syndrome(would not request MRI of head). She would like to follow-up with PCP hence will be discharged from the ER. ER physician notified Status: Acute Attestations Medical Necessity Statement*: Patient discharged from the ER Time Spent in Patient Care: 45mins Coding Level of Care Code Acute Hotel Custodian for Suhag Fwd Diagnoses Fatigue R53.83
[2020-11-12 00:12] VITALS: BP 101/60; PULSE 91; RESP 19; O2SAT 100
== END 2020-11-12 00:13 | disposition home or self-care (01) ==
PROVIDERS: Emergency Provider Family Medicine; PCP Electrodiagnostic Medicine
DX: N39.0 Urinary tract infection, site not specified (principal); E86.0 Dehydration; I10 Essential (primary) hypertension; F17.210 Nicotine dependence, cigarettes, uncomplicated
CPT/HCPCS: 12345; 36415; 70450; 71045; 71275; 72125; 80053; 81001; 82550; 83605; 83880; 84484; 85025; 85378; 87077; 87086; 87186; 87426; 96365; 99283; 99284; J2543; J3370; J7030; J7050; Q9967

== ENCOUNTER → 2020-12-01 10:05 | Outpatient (BNVA) | payer MEDICARE, OTHER, SELFPAY | PROVIDERS: PCP Electrodiagnostic Medicine; Visit Provider Podiatrist Foot & Ankle Surgery | DX: S92.332A Displaced fracture of third metatarsal bone, left foot, initial encounter for closed fracture (principal); S92.322A Displaced fracture of second metatarsal bone, left foot, initial encounter for closed fracture; W19.XXXA Unspecified fall, initial encounter | CPT/HCPCS: 73610; 73630 ==

== ENCOUNTER 2020-12-01 12:45 | Outpatient (CLI) | payer MEDICARE, OTHER, SELFPAY ==
--- NOTE | 2020-12-01 13:00 | CT_ITS ---
WS: [id number] CT LEFT FOOT, NONCONTRAST, 3-D RECONSTRUCTIONS. HISTORY: fracture Technique: All CT scans at [facility] use at least one of these dose optimization techniq ues: automated exposure control; mA and/or kV adjustment per patient size (includes targeted exams wh ere dose is matched to clinical indication); or iterative reconstruction. DLP: 617.1 mGycm COMPARISON: 12/01/2020 First metatarsal: Nondisplaced avulsion fracture dorsal surface of the proximal metatarsal. Second metatarsal: Nondisplaced partially healed fracture proximal metatarsal without intra-articular extension. Incomplete fusion. Third metatarsal: Partially healed fracture extends obliquely through the distal diaphysis. Additiona l partially healed nondisplaced fracture through the proximal metatarsal. Fourth metatarsal: No definite fracture. Suspicious there may be a partially healed fracture along th e plantar surface of the proximal metatarsal. This is seen best on the axial sequence. Fifth metatarsal: No fracture. Cuboid: Comminuted fracture through the cuboid with displacement by 3 to 4 mm. Fracture extends to in volve the proximal and distal articular surfaces. Medial cuneiform: Nondisplaced fracture through the mid body. Intermediate cuneiform. Nondisplaced fracture through the mid body. Fracture appears to extend to the plantar surface. No displacement. Lateral cuneiform: Comminuted nondisplaced fractures with osteopenia. There are multiple osseous frag ments along the plantar and dorsal surface associated with the joint spaces. Lisfranc type injury is more difficult to visualize by CT. On the radiographs 12/01/2020 there does frank ear to be mild widening between the proximal and first and second metatarsals. Moderate amount of soft tissue edema surrounding the foot. Navicular, calcaneus, talus, distal tibia, distal fibula: Negative. CT/CT foot LT wo con* [id number] IMPRESSION: 1. Numerous fractures are noted within the tarsal bones and metatarsals as fermin cribed above. 2. Fractures involve the first through fourth metatarsals. 3. Additional fractures involving the cuboid, all 3 cuneiforms. Significant co mminution involving the cuboid and lateral cuneiform. 4. Lisfranc type injury is difficult to see by CT. On prior radiographs there does appear to be slight widening between the proximal first and second metatar sals. If further evaluation is necessary MRI may be helpful to evaluate the lig ament.
== END 2020-12-01 12:46 | disposition home or self-care (01) ==
LOC: RADWPI 12:50
PROVIDERS: PCP Electrodiagnostic Medicine; Visit Provider Podiatrist Foot & Ankle Surgery
DX: S92.312A Displaced fracture of first metatarsal bone, left foot, initial encounter for closed fracture (principal); S92.322A Displaced fracture of second metatarsal bone, left foot, initial encounter for closed fracture; S92.332A Displaced fracture of third metatarsal bone, left foot, initial encounter for closed fracture; S92.342A Displaced fracture of fourth metatarsal bone, left foot, initial encounter for closed fracture; S92.212A Displaced fracture of cuboid bone of left foot, initial encounter for closed fracture; X58.XXXA Exposure to other specified factors, initial encounter; W19.XXXA Unspecified fall, initial encounter
CPT/HCPCS: 73610; 73630; 73700

== ENCOUNTER → 2020-12-15 14:43 | Outpatient (BNVA) | payer MEDICARE, OTHER, SELFPAY | PROVIDERS: PCP Electrodiagnostic Medicine; Visit Provider Podiatrist Foot & Ankle Surgery | DX: S92.332A Displaced fracture of third metatarsal bone, left foot, initial encounter for closed fracture (principal); S92.322A Displaced fracture of second metatarsal bone, left foot, initial encounter for closed fracture; W19.XXXA Unspecified fall, initial encounter | CPT/HCPCS: 73630 ==

== ENCOUNTER → 2020-12-29 15:51 | Outpatient (BNVA) | payer MEDICARE, OTHER, SELFPAY | PROVIDERS: PCP Electrodiagnostic Medicine; Visit Provider Podiatrist Foot & Ankle Surgery | DX: S92.332D Displaced fracture of third metatarsal bone, left foot, subsequent encounter for fracture with routine healing (principal); S92.322D Displaced fracture of second metatarsal bone, left foot, subsequent encounter for fracture with routine healing; W19.XXXD Unspecified fall, subsequent encounter; S92.215D Nondisplaced fracture of cuboid bone of left foot, subsequent encounter for fracture with routine healing; S92.315D Nondisplaced fracture of first metatarsal bone, left foot, subsequent encounter for fracture with routine healing | CPT/HCPCS: 73630 ==

== ENCOUNTER 2020-12-31 00:11 | Emergency (ER) | payer MEDICARE, OTHER, SELFPAY ==
[2020-12-31 00:12] VITALS: BP 104/68; PULSE 70; RESP 14; TEMP 36.4; O2SAT 98; BMI 21.6
--- NOTE | 2020-12-31 00:17 | ED_ITS ---
HPI - Fall General: Chief Complaint: Fall Stated Complaint: FALL / HEADACHE Time Seen by Provider: 12/31/20 00:16 Source: patient and EMS Mode of arrival: EMS Limitations: no limitations History of Present Illness: HPI Narrative: 55 yo female that states she was getting up to go to the bathroom tonight and slipped and fell. she states she struck her head on the counter in the bathroom and has a headache and facial pain since then. pt rates her pain a 7/10. she denies any loc. denies any other injuries. pain is worse with palpation Associated symptoms-after fall: Reports headache(s); Denies abdominal pain, chest pain or neck pain Review of Systems Const: Denies: fever(s), chills, body aches or change in appetite Eyes: Denies: blurry vision or eye discomfort ENMT: Denies: throat pain or dental pain Card: Denies: chest pain Resp: Denies: dyspnea GI: Denies: abdominal pain, nausea, vomiting or diarrhea : Denies: dysuria Musc: Denies: neck pain or back pain Skin/Breast: Denies: rash Neuro: Reports: headache(s) Psych: Denies: depression Miguel/Lymph: Denies: easy bruising All/Imm: Denies: urticaria PFSH ED PFSH: Medical History Cervical disc disorder with myelopathy of mid-cervical region Chronic back pain HTN (hypertension) HZV (herpes zoster virus) post herpetic neuralgia Smoker Surgical History History of lumbar spinal fusion (~2016) Dr. Elvin Leija, anterior L5-S1 fusion/fixation. History of wrist fracture R wrist fracture repair Hx of gastric bypass Hx of hysterectomy / BSO Status post cholecystectomy Family History Father Cancer Family history of myocardial infarction Mother Lung disease Dementia Social History Smoking and tobacco status: current every day smoker cigarettes Packs smoked per day: 0.75 Years cigarettes smoked: 35 [ Other cigarette details: Used to smoke more heavily ] Alcohol intake: never Household members: spouse Marital status: Current occupational status: disabled History of recent travel: No Physical Exam Const: COMMON NORMALS: no acute distress, patient oriented x3 and healthy appearing HENMT: COMMON NORMALS: normocephalic and atraumatic HEAD & SCALP: normocephalic and atraumatic Eye: COMMON NORMALS: Equal, round and reactive pupils present and EOMs intact bilaterally PUPIL: Yes Equal, round and reactive pupils present Neck/C-Spine: COMMON NORMALS: full ROM and supple Chest: COMMONS NORMALS: normal inspection of the chest and normal palpation of entire chest wall Resp: COMMON NORMALS: normal respiratory effort, No retractions, No use of accessory muscles and clear to auscultation bilaterally AUSCULTATION: clear to auscultation bilaterally Cardio: COMMON NORMALS: regular rate, regular rhythm and No murmurs present (Cardio) RATE: regular rate RHYTHM: regular rhythm GI: COMMON NORMALS: Normal to inspection, nondistended, normoactive bowel sounds present, Soft to palpation, non-tender and no masses PALPATION: Yes Soft to palpation Extremity: COMMON NORMALS: normal to inspection and full ROM Neuro: COMMON NORMALS: patient oriented x3, moves all extremities and no focal motor deficits Psych: COMMON NORMALS: mental status grossly normal, Normal thought process present and cooperative THOUGHT PROCESS: Normal thought process present Skin: COMMON NORMALS: no rashes or lesions noted and no wounds GENERAL SKIN EXAM: no rashes or lesions noted Course Vital Signs: Vital signs: Vital Signs Temperature 97.5 F L 12/31/20 00:12 Pulse Rate 88 12/31/20 02:06 Respiratory Rate 18 12/31/20 02:06 Blood Pressure 128/93 12/31/20 02:06 Pulse Oximetry 100 12/31/20 02:06 MDM - Fall MDM Narrative: Medical decision making narrative: jS presents here with a nasal fracture from a fall. Her CT head is normal. She does have some hypokalemia will treat with oral potassium home. Patient is stable for discharge and return if worsening. Lab Data: Labs: Lab Results 12/31/20 12/31/20 12/31/20 Range/Units 00:00 00:00 00:00 WBC 4.0 (4.0-10.0) 10^3/ uL RBC 3.21 L (4.1-5.3) 10^6/u L Hgb 10.3 L (11.5-15.3) g/dL Hct 32.2 L (37.0-47.0) % MCV 100.3 H (81-99) fL MCH 32.1 (28.0-34.0) pg MCHC 32.0 (30.0-36.0) g/dL RDW 16.0 H (12.1-15.1) % Plt Count 296 (130-400) 10^3/c mm MPV 10.5 H (7.4-10.4) fL Neut % (Auto) 61.1 % Lymph % (Auto) 27.5 % [facility] % (Auto) 9.8 % Eos % (Auto) 0.8 % Baso % (Auto) 0.5 % Neut # (Auto) 2.45 (1.8-7.7) 10^3/u L Lymph # (Auto) 1.1 (0.8-4.8) 10^3/u L [facility] # (Auto) 0.4 (0.2-0.9) 10^3/u L Eos # (Auto) 0.0 (0.0-0.8) 10^3/u L Baso # (Auto) 0.0 (0.0-0.1) 10^3/u L Nucleated RBC % (a uto) 0 % Nucleated RBCs # 0.0 /100WBC PT 14.10 (12.1-14.9) SECO NDS INR 1.06 (0.8-1.2) Sodium 127 L (136-145) mmol/L Potassium 3.1 L (3.5-5.1) mmol/L Chloride 93 L (98-107) mmol/L Carbon Dioxide 24 (22-29) mmol/L Anion Gap 13.1 (5-19) BUN 5 L (6-20) mg/dL Creatinine 0.7 (0.5-0.9) mg/dL GFR Calculation 86.2 L (90-130) mL/min Glucose 131 H (65-115) mg/dL Calculated Osmolal ity 263 L (285-295) mOsm/k g Calcium 7.8 L (8.5-10.5) mg/dL 12/31/20 Range/Units 02:43 WBC (4.0-10.0) 10^3/ uL RBC (4.1-5.3) 10^6/u L Hgb (11.5-15.3) g/dL Hct (37.0-47.0) % MCV (81-99) fL MCH (28.0-34.0) pg MCHC (30.0-36.0) g/dL RDW (12.1-15.1) % Plt Count (130-400) 10^3/c mm MPV (7.4-10.4) fL Neut % (Auto) % Lymph % (Auto) % [facility] % (Auto) % Eos % (Auto) % Baso % (Auto) % Neut # (Auto) (1.8-7.7) 10^3/u L Lymph # (Auto) (0.8-4.8) 10^3/u L [facility] # (Auto) (0.2-0.9) 10^3/u L Eos # (Auto) (0.0-0.8) 10^3/u L Baso # (Auto) (0.0-0.1) 10^3/u L Nucleated RBC % (a uto) % Nucleated RBCs # /100WBC PT (12.1-14.9) SECO NDS INR (0.8-1.2) Sodium 132 L (136-145) mmol/L Potassium 2.9 L (3.5-5.1) mmol/L Chloride 107 (98-107) mmol/L Carbon Dioxide 16 L (22-29) mmol/L Anion Gap 11.9 (5-19) BUN 5 L (6-20) mg/dL Creatinine 0.4 L (0.5-0.9) mg/dL GFR Calculation 164.5 H (90-130) mL/min Glucose 87 (65-115) mg/dL Calculated Osmolal ity 271 L (285-295) mOsm/k g Calcium 6.3 L (8.5-10.5) mg/dL Imaging Data^: CT Head: Radiologist's impression: [address] [address] [address] Scan Report Signed Patient: Sj Land Unit #: [id number] : 1965 Age/Sex: 55 / F ADM Date: 12/31/20 Loc: ER Room/Bed: Attending Dr: Ordering Provider/Ordering MD: Gregorio Florez MD Date of Service: 12/31/20 Procedure(s): CT head wo con* [id number] Accession Number(s): [id number] Report Number: [id number] PROCEDURE INFORMATION: Exam: CT Head Without Contrast Exam date and time: 12/31/2020 12:24 AM Age: 55 years old Clinical indication: Injury or trauma; Blunt trauma (contusions or hematomas); Patient HX: Fall, hit head and face. Swelling to lt orbit and maxilla TECHNIQUE: Imaging protocol: Computed tomography of the head without contrast. Radiation optimization: All CT scans at this facility use at least one of these dose optimization techniques: automated exposure control; mA and/or kV adjustment per patient size (includes targeted exams where dose is matched to clinical indication); or iterative reconstruction. COMPARISON: CT head wo con* [id number] 11/11/2020 4:48 PM RADIATION DOSE METRICS: Total DLP (mGy-cm): 746.88 FINDINGS: Brain: Normal. No infarct or hemorrhage. Unremarkable white matter. No mass effect. Cerebral ventricles: No ventriculomegaly. Bones/joints: Nondisplaced left nasal bone fracture. Paranasal sinuses: Paranasal sinuses are clear. No air-fluid level. Mastoid air cells: Visualized mastoid air cells are clear. Soft tissues: Unremarkable. CT/CT head wo con* [id number] IMPRESSION: 1. Nondisplaced left nasal bone fracture. 2. No infarct or hemorrhage. Other CT: Radiologist's impression: [address] [address] [address] Scan Report Signed Patient: Sj Land Unit #: [id number] : 1965 Age/Sex: 55 / F ADM Date: 12/31/20 Loc: ER Room/Bed: Attending Dr: Ordering Provider/Ordering MD: Gregorio Florez MD Date of Service: 12/31/20 Procedure(s): CT facial bones wo con* [id number] Accession Number(s): [id number] Report Number: [id number] PROCEDURE INFORMATION: Exam: CT Maxillofacial Without Contrast Exam date and time: 12/31/2020 12:24 AM Age: 55 years old Clinical indication: Injury or trauma; Blunt trauma (contusions or hematomas); Orbit/periorbital and maxilla; Patient HX: Fall hit head and face, swelling to left orbit and maxilla TECHNIQUE: Imaging protocol: Computed tomography images of the face without contrast. Radiation optimization: All CT scans at this facility use at least one of these dose optimization techniques: automated exposure control; mA and/or kV adjustment per patient size (includes targeted exams where dose is matched to clinical indication); or iterative reconstruction. COMPARISON: CT facial bones wo con* [id number] 08/30/2020 8:47 PM RADIATION DOSE METRICS: Total DLP (mGy-cm): 754.45 FINDINGS: Orbital cavity: Orbits are normal. Globes are unremarkable. Bones/joints: Nondisplaced left nasal bone fracture. Paranasal sinuses: Normal. No air-fluid levels. Soft tissues: Unremarkable. Dental: Multiple dental implants are present in the mandible. CT/CT facial bones wo con* [id number] IMPRESSION: Nondisplaced left nasal bone fracture. Discharge Plan Discharge Patient Disposition: Home Clinical Impression: Head injury, Hypokalemia Fracture of nasal bone Qualifiers: Encounter type: initial encounter Fracture type: closed Qualified Code(s): S02.2XXA - Fracture of nasal bones, initial encounter for closed fracture Condition: Stable Prescriptions: New potassium chloride 20 mEq packet 40 meq PO BID Qty: 10 RF: 0 No Action alendronate 70 mg tablet See Rx Instructions .ROUTE .COMPLEX RF: 0 pregabalin [Lyrica] 150 mg capsule 150 mg PO BID RF: 0 lidocaine [Lidoderm] 5 % adhesive patch,medicated See Rx Instructions .ROUTE .COMPLEX RF: 0 (DME) cam boot See Rx Instructions .Route .MEDSUPPLY Qty: 1 RF: 0 sertraline 100 mg tablet 100 mg PO DAILY RF: 0 albuterol sulfate 2.5 mg /3 mL (0.083 %) Solution For Nebulization 2.5 mg INHALATION Q4H PRN (Reason: Shortness Of Breath) RF: 0 oxycodone-acetaminophen 7.5-325 mg Tablet 1 tab PO QID PRN (Reason: Pain) RF: 0 albuterol sulfate [Ventolin HFA] 90 mcg/actuation Hfa Aerosol Inhaler 2 puff INHALATION Q4H PRN (Reason: Shortness Of Breath) RF: 0 alprazolam 0.25 mg tablet 0.25 mg PO BID PRN (Reason: Anxiety) RF: 0 tramadol 50 mg tablet 50 mg PO TID PRN (Reason: PAIN) Qty: 0 RF: 0 Eliquis 5 mg tablet See Rx Instructions .ROUTE .COMPLEX Qty: 60 RF: 0 fludrocortisone 0.1 mg tablet See Rx Instructions .ROUTE .COMPLEX Qty: 12 RF: 0 promethazine 25 mg Tablet 25 mg PO Q6H PRN (Reason: Nausea) RF: 0 jadqxirble-gufjqcqwblury-tndj 50-300-40 mg Capsule 1 - 2 cap PO Q4H PRN (Reason: Headache) RF: 0 potassium chloride 20 mEq Tablet Extended Release 20 meq PO DAILY RF: 0 Discharge Orders: Discharge ED (Routine); Ordered 12/31/20 Ordered By: Gregorio Florez Referrals: Osito Foley MD [Physician] - 1-3 days Paul Mike DO [Primary Care Provider] - Discharge Diet: Advance as tolerated Discharge Activity: Resume usual activity Patient Instructions: Nasal Fracture (ED), Hypokalemia (ED), Opioid Safety Coding Level of Care Code ED Extruding Press Operator for Chg Fwd Exam Comprehensive
[2020-12-31 00:35] LABS: Basophils % 0.5 %; Eosinophils % 0.8 %; Hematocrit 32.2 % (37.0-47.0); Hemoglobin 10.3 g/dL (11.5-15.3); Lymphocytes # 1.1 10^3/uL (0.8-4.8); Lymphocytes % 27.5 %; Mean Corpuscular Hemoglobin 32.1 pg (28.0-34.0); Mean Corpuscular Volume 100.3 fL (81-99); Mean Platelet Volume 10.5 fL (7.4-10.4); Monocytes # 0.4 10^3/uL (0.2-0.9); Monocytes % 9.8 %; Neutrophils # 2.45 10^3/uL (1.8-7.7); Neutrophils % 61.1 %; Nucleated Red Blood Cells % 0 %; Platelet Count 296 10^3/cmm (130-400); Red Blood Count 3.21 10^6/uL (4.1-5.3)
[2020-12-31 00:43] LABS: Blood Urea Nitrogen 5 mg/dL (6-20); Calcium 7.8 mg/dL (8.5-10.5); Carbon Dioxide 24 mmol/L (22-29); Chloride 93 mmol/L (98-107); Creatinine Clr Calc Pharmacy 80.8901; Glomerular Filtration Rate 86.2 mL/min (90-130); Glucose 131 mg/dL (65-115); Osmolality Calculated 263 mOsm/kg (285-295); Sodium 127 mmol/L (136-145)
[2020-12-31 00:50] LABS: INR 1.06 (0.8-1.2)
[2020-12-31 01:18] LABS: Potassium 3.1 mmol/L (3.5-5.1)
[2020-12-31 01:19] LABS: Anion Gap 13.1 (5-19)
[2020-12-31] MEDS: sodium chloride 0.9% 1,000 ML 999 ML IV (01:32)
[2020-12-31] MEDS: potassium chloride ER 20 mEq Tablet 40 MEQ PO (01:34)
[2020-12-31 01:37] VITALS: BP 95/61; PULSE 75; RESP 17; O2SAT 97
[2020-12-31] MEDS: sodium chloride 0.9% 500 ML 999 ML IV (02:02)
[2020-12-31 02:06] VITALS: BP 128/93; PULSE 88; RESP 18; O2SAT 100
[2020-12-31] MEDS: HYDROcodone-acetaminophen 5-325 mg Tablet 1 TAB PO (03:00)
[2020-12-31 03:17] LABS: Blood Urea Nitrogen 5 mg/dL (6-20); Calcium 6.3 mg/dL (8.5-10.5); Carbon Dioxide 16 mmol/L (22-29); Chloride 107 mmol/L (98-107); Glomerular Filtration Rate 164.5 mL/min (90-130); Glucose 87 mg/dL (65-115); Osmolality Calculated 271 mOsm/kg (285-295); Sodium 132 mmol/L (136-145)
[2020-12-31 03:23] LABS: Anion Gap 11.9 (5-19)
[2020-12-31 03:25] LABS: Potassium 2.9 mmol/L (3.5-5.1)
[2020-12-31 03:43] VITALS: BP 132/91; PULSE 84; RESP 18; O2SAT 97
--- NOTE | 2020-12-31 07:22 | DCPLANNER ---
net development manager had message to schedule a follow up appointment for patient with Dr. Foley, ENT. net development manager emailed patients information to Sho Hernandez and Carmen at [facility] General Surgery. Patients information will be printed and reviewed. Clinic will call patient with appointment information.
--- NOTE | 2021-01-07 11:08 | DCPLANNER ---
Patient had a follow up appointment scheduled for 01.02.[address] Foley, ENT - patient did attend appointment.
== END 2020-12-31 03:43 | disposition home or self-care (01) ==
PROVIDERS: Emergency Provider Emergency Medicine; PCP Electrodiagnostic Medicine
DX: S02.2XXA Fracture of nasal bones, initial encounter for closed fracture (principal); S09.90XA Unspecified injury of head, initial encounter; E87.6 Hypokalemia; Z79.01 Long term (current) use of anticoagulants; I10 Essential (primary) hypertension; F17.210 Nicotine dependence, cigarettes, uncomplicated; W01.0XXA Fall on same level from slipping, tripping and stumbling without subsequent striking against object, initial encounter
CPT/HCPCS: 70450; 70486; 80048; 85025; 85610; 96360; 99283; J7030; J7040

== ENCOUNTER → 2021-01-20 15:46 | Outpatient (BNVA) | payer MEDICARE, OTHER, SELFPAY | PROVIDERS: PCP Electrodiagnostic Medicine; Visit Provider Podiatrist Foot & Ankle Surgery | DX: S92.332D Displaced fracture of third metatarsal bone, left foot, subsequent encounter for fracture with routine healing (principal); S92.322D Displaced fracture of second metatarsal bone, left foot, subsequent encounter for fracture with routine healing; W19.XXXD Unspecified fall, subsequent encounter; S92.215D Nondisplaced fracture of cuboid bone of left foot, subsequent encounter for fracture with routine healing; S92.325D Nondisplaced fracture of second metatarsal bone, left foot, subsequent encounter for fracture with routine healing; S92.345D Nondisplaced fracture of fourth metatarsal bone, left foot, subsequent encounter for fracture with routine healing | CPT/HCPCS: 73630 ==

== ENCOUNTER → 2021-02-10 15:21 | Outpatient (BNVA) | payer MEDICARE, OTHER, SELFPAY | PROVIDERS: PCP Nurse Practitioner Family; Visit Provider Podiatrist Foot & Ankle Surgery | DX: S92.215D Nondisplaced fracture of cuboid bone of left foot, subsequent encounter for fracture with routine healing; S92.315D Nondisplaced fracture of first metatarsal bone, left foot, subsequent encounter for fracture with routine healing; S92.325D Nondisplaced fracture of second metatarsal bone, left foot, subsequent encounter for fracture with routine healing; S92.335D Nondisplaced fracture of third metatarsal bone, left foot, subsequent encounter for fracture with routine healing; S92.345D Nondisplaced fracture of fourth metatarsal bone, left foot, subsequent encounter for fracture with routine healing; W19.XXXD Unspecified fall, subsequent encounter | CPT/HCPCS: 73630 ==

== ENCOUNTER 2021-02-11 13:32 | Outpatient (CLI) | payer MEDICARE, OTHER, SELFPAY ==
--- NOTE | 2021-02-11 13:40 | USCV_ITS ---
Sj Land Age: 55 Gender: F : 1965 Exam Date: 02/11/2021 14:17 Ordering Phys: Alivia Gregg Technologist: Exam Location: [facility] [place] Indication: CHEST PAIN BP: 134 / 82 HR: 104 Rhythm: Sinus Technical Quality: Adequate MEASUREMENTS (Male / Female) Normal Values 2D ECHO LV Diastolic Diameter PLAX 3.7 cm 4.2 - 5.9 / 3.9 - 5.3 cm LV Systolic Diameter PLAX 2.6 cm IVS Diastolic Thickness 0.8 cm 0.6 - 1.0 / 0.6 - 0.9 cm IVS Systolic Thickness 1.1 cm LVPW Diastolic Thickness 0.8 cm 0.6 - 1.0 / 0.6 - 0.9 cm LVPW Systolic Thickness 1.1 cm LVOT Diameter 2.0 cm LV Ejection Fraction 2D Teich 59.1 % LV Ejection Fraction MOD 2C 76.3 % LV Ejection Fraction 2C AL 76.5 % LA Diameter 2.7 cm LA Width 2.8 cm LA Height 3.6 cm RA Width 2.7 cm RA Height 3.3 cm Aorta at Sinotubular Diameter 2.7 cm M-MODE LV Diastolic Diameter MM 4.0 cm 4.2 - 5.9 / 3.9 - 5.3 cm LV Systolic Diameter MM 2.6 cm LV Ejection Fraction MM Teich 64.8 % IVS Diastolic Thickness MM 0.7 cm 0.6 - 1.0 / 0.6 - 0.9 cm IVS Systolic Thickness MM 1.1 cm LVPW Diastolic Thickness MM 0.9 cm 0.6 - 1.0 / 0.6 - 0.9 cm LVPW Systolic Thickness MM 1.3 cm RV Diastolic Diameter MM 0.9 cm Aortic Annulus Diameter 3.0 cm LA Ao Ratio MM 1.0 MV E Point Septal Separation 0.7 cm DOPPLER AV Peak Velocity 104.0 cm/s LVOT Peak Velocity 87.0 cm/s AV Area Cont Eq vti 2.9 cm squared AV Area Cont Eq pk 2.7 cm squared MV Area PHT 5.0 cm squared Mitral E to A Ratio 0.7 MV E' Velocity 37.0 cm/s Mitral E to MV E' Ratio 11.7 Mitral E to LV E' Lateral Ratio 11.0 Mitral E to LV E' Septal Ratio 12.6 TR Peak Velocity 222.7 cm/s TR Peak Gradient 19.8 mmHg TV Peak E Velocity 79.0 cm/s Right Atrial Pressure 3.0 mmHg Pulmonary Artery Systolic Pressu 22.8 mmHg PV Peak Velocity 57.0 cm/s FINDINGS Left Ventricle Normal left ventricular size and systolic function, EF 77 %. No regional wall motion abnormalities. Right Ventricle The right ventricle is normal in size and function. Right Atrium The right atrium is normal in size. Left Atrium The left atrium is normal in size. Mitral Valve Structurally normal mitral valve without significant stenosis or prolapse. There is no mitral regurgitation. Aortic Valve Structurally normal aortic valve without significant sclerosis or stenosis. There is no aortic regurgitation. Tricuspid Valve Trace to mild tricuspid valve regurgitation. Pulmonic Valve Structurally normal pulmonic valve without significant stenosis. There is no pulmonic regurgitation. Pericardium No pericardial effusion. Aorta Normal ascending aorta dimension. CONCLUSIONS Normal left ventricular size and systolic function, EF 77 %. No regional wall motion abnormalities. Normal cardiac chamber sizes. Trace to mild tricuspid valve regurgitation. Estimated pulmonary artery peak systolic pressure of 23 mmHg There is no pericardial effusion. There are no intracardiac masses. Compared to the study from 08/31/2020, the pulmonary artery pressure has gone down. Dr Kaleb Frank MD FAC (Electronically Signed) Final Date: 12 February 2021 00:39 S
== END 2021-02-11 13:33 | disposition home or self-care (01) ==
LOC: US 13:34
PROVIDERS: PCP Nurse Practitioner Family; Visit Provider Nurse Practitioner Family
DX: R07.9 Chest pain, unspecified (principal); I07.1 Rheumatic tricuspid insufficiency
CPT/HCPCS: 93306

== ENCOUNTER 2021-03-13 11:02 | Outpatient (CLI) | payer MEDICARE, OTHER, SELFPAY ==
--- NOTE | 2021-03-13 11:09 | MM_ITS ---
WS: [id number] BILATERAL DIGITAL SCREENING MAMMOGRAPHY WITH CAD CLINICAL INFORMATION: SCREENING HISTORY: Screening mammogram. No current complaints. COMPARISON: TECHNIQUE: Bilateral CC and MLO views. FINDINGS: Scattered fibroglandular densities bilaterally. Benign punctate and lucent centered calcifications. D ystrophic calcificationso upper outer right breast. Vascular calcifications. No suspicious focal mass , asymmetry, calcifications, or architectural distortion. No evidence of malignancy. MM/[place] [id number] IMPRESSION: BI-RADS: 2-Benign FOLLOW UP: 1 Year Follow-up Recommend return to annual screening mammography.
== END 2021-03-13 11:03 | disposition home or self-care (01) ==
LOC: RADSHAW 11:07
PROVIDERS: PCP Nurse Practitioner Family; Visit Provider Nurse Practitioner Family
DX: Z12.31 Encounter for screening mammogram for malignant neoplasm of breast (principal)
CPT/HCPCS: 77067

== ENCOUNTER → 2021-04-14 15:23 | Outpatient (BNVA) | payer MEDICARE, OTHER, SELFPAY | PROVIDERS: PCP Nurse Practitioner Family; Visit Provider Podiatrist Foot & Ankle Surgery | DX: S92.215D Nondisplaced fracture of cuboid bone of left foot, subsequent encounter for fracture with routine healing (principal); S92.335D Nondisplaced fracture of third metatarsal bone, left foot, subsequent encounter for fracture with routine healing; S92.345D Nondisplaced fracture of fourth metatarsal bone, left foot, subsequent encounter for fracture with routine healing; W19.XXXD Unspecified fall, subsequent encounter | CPT/HCPCS: 73630 ==

== ENCOUNTER → 2021-07-15 15:22 | Outpatient (BNVA) | payer MEDICARE, OTHER, SELFPAY | PROVIDERS: PCP Nurse Practitioner Family; Visit Provider Podiatrist Foot & Ankle Surgery | DX: S92.315D Nondisplaced fracture of first metatarsal bone, left foot, subsequent encounter for fracture with routine healing (principal); W19.XXXD Unspecified fall, subsequent encounter; S92.215D Nondisplaced fracture of cuboid bone of left foot, subsequent encounter for fracture with routine healing; S92.325D Nondisplaced fracture of second metatarsal bone, left foot, subsequent encounter for fracture with routine healing; S92.335D Nondisplaced fracture of third metatarsal bone, left foot, subsequent encounter for fracture with routine healing; S92.345D Nondisplaced fracture of fourth metatarsal bone, left foot, subsequent encounter for fracture with routine healing | CPT/HCPCS: 73630 ==